=== PATIENT | male | born 1965 | race Caucasian/White ===

== ENCOUNTER → 2017-07-12 | Outpatient (CLI) | payer OTHER ==
--- NOTE | 2017-07-12 14:53 | MR ---
EXAMINATION TYPE: MR eduardoine/lspine wo con DATE OF EXAM: 07/12/2017 COMPARISON: MRI lumbar spine July 17, 2014. CT cervical spine May 04, 2013. HISTORY: Low back pain / Cervicalgia per order. Headaches with neck pain for 5 years causing pain or weakness into both arms per patient. Low back pain for 20+ years causing pain into right buttocks. TECHNIQUE: Multiplanar, multisequence imaging of the cervical and lumbar spine are performed without IV contrast. FINDINGS: C-SPINE: FINDINGS: Sagittal images of the cervical spine show the craniocervical junction to appear within nor mal limits. The cervical and upper thoracic spinal cord is normal in caliber and signal. Vertebral alignment is straightened. There is slight grade 1 retrolisthesis of C5 on C6. There is mild to mode rate disc space narrowing C5-C6 level otherwise the vertebral body and intravertebral disk heights ar e normal. Posterior disc herniations are seen effacing anterior thecal sac at C5-C6 and C6-C7 levels. The bone marrow signal intensity is within normal limits. No significant spurring is seen. Axial images at C2-C3 level shows left-sided uncovertebral facet degenerative changes causing mild to moderate left-sided neural foraminal narrowing. Right-sided neural foramen is patent. Spinal canal i s preserved. Axial images at C3-C4 level and C4-C5 level are felt within normal limits. Axial images at C5-C6 level show lobulated broad-based posterior disc protrusion effacing anterior th ecal sac and causing moderate to severe right and moderate left-sided neural foraminal narrowing. Axial images at C6-C7 level show broad-based left paracentral disc protrusion effacing anterolateral thecal sac and causing moderate left-sided neural foraminal narrowing. Right-sided neural foramen is patent. Axial images at C7-T1 level are felt within normal limits.. IMPRESSION: Straightening of cervical spine with multilevel degenerative changes most prominent at C5 -C6 and C6-C7 levels as detailed above. L-SPINE: Sagittal images of the lumbar spine show vertebral body heights to remain satisfactory. Alignment is straightened and is stable. There is slight grade 1 retrolisthesis of L5 on S1 redemonstrated. There is increasing multilevel disc desiccation since prior. There is persistent mild to moderate disc spac e narrowing L1-L2 and L4-L5 levels. There is moderate to severe disc space narrowing with vacuum disc phenomenon L5-S1 level redemonstrated. Posterior disc herniations are seen at these levels on sagitt al images from prior. The conus medullaris is normal in position and signal ending at mid L1 level. T here is heterogeneous endplate changes with moderate anterior spurring at L5-S1 level redemonstrated. Axial images show the T12-L1 level to appear within normal limits. Axial images at the L1-L2 level show broad disc bulge with left paracentral disc protrusion component effacing anterior thecal sac, bilateral neural foramina are patent. No significant change from prior study is seen. Axial images at L2-L3 level show mild broad disc bulge but spinal canal is preserved and bilateral ne ural foramina are patent. Axial images at L3-L4 level show mild broad disc bulge and mild facet degenerative changes bilaterall y. There is mild effacement anterior thecal sac. Left-sided neural foramen is mildly narrow. Right-si ded neural foramen is patent. No significant change from prior study is seen. Axial images at L4-L5 level show broad-based right paracentral disc protrusion effacing anterior thec al sac on axial image a similar appearance to prior study. There is mild bilateral neural foraminal n arrowing at this level identified. There are mild facet degenerative changes seen. No significant maria elena nge from prior study is noted. Axial images at L5-S1 level show severe broad disc bulge with central disc protrusion component on ax ial image 3. Spinal canal is grossly preserved. There is advanced bilateral neural foraminal narrowin g with encroachment on both L5 nerve seen on sagittal image 2 and 11 respectively, left worse than ri ght, no significant change from prior study. No suspicious retroperitoneal findings are seen. Prominent somewhat lobulated right kidney is redemon strated. IMPRESSION: Multilevel degenerative changes in lumbar spine as detailed above, attention to L5-S1 lev el where disc herniation causes advanced bilateral neural foraminal narrowing and suspected encroachm ent on both L5 nerves.
== END | disposition home or self-care (01) ==
LOC: RADMRIMAIN 10:56
PROVIDERS: ATTEND Psychiatry & Neurology Neurology
DX: M99.73 Connective tissue and disc stenosis of intervertebral foramina of lumbar region (principal); M51.27 Other intervertebral disc displacement, lumbosacral region; M47.812 Spondylosis without myelopathy or radiculopathy, cervical region; M47.816 Spondylosis without myelopathy or radiculopathy, lumbar region
CPT/HCPCS: 72141; 72148

== ENCOUNTER 2018-12-21 10:08 | Emergency (ER) | payer OTHER ==
[2018-12-21 10:26] VITALS: BP 127/85; PULSE 85; RESP 18; TEMP 99
[2018-12-21] MEDS ORDERED: KETOROLAC 60 MG/2 ML VIAL IM STA (11:09)
[2018-12-21] MEDS ORDERED: DIAZEPAM 5 MG TAB PO STA (11:09)
--- NOTE | 2018-12-21 11:15 | ED ---
Back Pain HPI - General Chief Complaint: Back Pain/Injury Stated Complaint: back pain Time Seen by Provider: 12/21/18 10:59 Source: patient Limitations: no limitations - History of Present Illness Initial Comments: Patient is a 53-year-old male presenting to emergency Department with past medical history COPD, GERD, hyperlipidemia, hypertension with complaints of low back pain. Patient states this is chronic in nature. He was here 2 weeks ago for same thing. X-rays were taken at that time because he had a fall 2 weeks prior. X-rays show no acute fractures. Patient states he is back today because the pain is getting worse again. Patient state they did not call Dr. Brito as they were supposed to. Patient states the pain has been radiating down the back of his legs. Denies any difficulty walking or weakness in his lower extremities. Patient denies saddle anesthesia, fever, chills, changes in bowel or bladder habits, shortness of breath, chest pain, abdominal pain. Patient has no other complaints at this time. - Related Data Home Medications Medication Instructions Recorded Confirmed Albuterol Sulfate [Ventolin HFA] 2 puff INHALATION RT-Q4H PRN 02/26/15 12/21/18 Fenofibrate 160 mg PO DAILY 02/26/15 12/21/18 Hydrochlorothiazide 25 mg PO DAILY 02/26/15 12/21/18 Ibuprofen [Motrin] 800 mg PO TID 02/26/15 12/21/18 Losartan Potassium 100 mg PO DAILY 02/26/15 12/21/18 busPIRone HCL [Buspirone HCl] 20 mg PO BID 02/26/15 12/21/18 Aspirin EC [Ecotrin Low Dose] 81 mg PO DAILY 12/21/18 12/21/18 Atorvastatin [Lipitor] 40 mg PO DAILY 12/21/18 12/21/18 Carisoprodol [Soma] 350 mg PO BID 12/21/18 12/21/18 Clotrimazole/Betameth Cream 1 applic TOPICAL BID 12/21/18 12/21/18 [Lotrisone] Diazepam 10 mg PO BID 12/21/18 12/21/18 Gabapentin [Neurontin] 100 mg PO TID 12/21/18 12/21/18 Pregabalin [Lyrica] 100 mg PO BID 12/21/18 12/21/18 Ranitidine HCl [Zantac] 300 mg PO DAILY 12/21/18 12/21/18 metFORMIN HCL [Glucophage] 850 mg PO BID 12/21/18 12/21/18 Previous Rx's Medication Instructions Recorded predniSONE 50 mg PO DAILY #5 tab 12/21/18 Allergies Allergy/AdvReac Type Severity Reaction Status Date / Time No Known Allergies Allergy Verified 12/21/18 11:11 Review of Systems ROS Statement: Those systems with pertinent positive or pertinent negative responses have been documented in the HPI. ROS Other: All systems not noted in ROS Statement are negative. Past Medical History Past Medical History: COPD, GERD/Reflux, Hyperlipidemia, Hypertension, Sleep Apnea/CPAP/BIPAP Additional Past Medical History / Comment(s): varicose veins, History of Any Multi-Drug Resistant Organisms: MRSA Date of last positivie culture/infection: 2013 MDRO Source:: rt nipple Additional Past Surgical History / Comment(s): polyps removed from throat Past Anesthesia/Blood Transfusion Reactions: No Reported Reaction Past Psychological History: No Psychological Hx Reported Smoking Status: Current every day smoker Past Alcohol Use History: Rare Past Drug Use History: Marijuana - Past Family History Mother Family Medical History: Cancer General Exam - General Exam Comments Initial Comments: GENERAL: Well-appearing, well-nourished and in no acute distress. HEAD: Atraumatic, normocephalic. EYES: Pupils equal round and reactive to light, extraocular movements intact, sclera anicteric, conjunctiva are normal. ENT: Nares patent, oropharynx clear without exudates. Moist mucous membranes. NECK: Normal range of motion, supple without lymphadenopathy or JVD. LUNGS: Breath sounds clear to auscultation bilaterally and equal. No wheezes rales or rhonchi. HEART: Regular rate and rhythm without murmurs, rubs or gallops. ABDOMEN: Soft, nontender, normoactive bowel sounds. No guarding, no rebound. No masses appreciated. : Deferred EXTREMITIES: Normal range of motion, no pitting or edema. No clubbing or cyanosis. Sensation equal in bilateral lower extremities. NEUROLOGICAL: Cranial nerves II through XII grossly intact. Normal speech, normal gait. PSYCH: Normal mood, normal affect. SKIN: Warm, Dry, normal turgor, no rashes or lesions noted. Limitations: no limitations Back exam: Present: normal inspection, tenderness (Lumbar area, bilateral sciatic nerve, SI joints), paraspinal tenderness. Absent: full ROM (Pain with flexion and extension.), CVA tenderness (R), CVA tenderness (L), rash noted Course Vital Signs 12/21/18 10:23 Temperature 99 F Pulse Rate 85 Respiratory 18 Rate Blood Pressure 127/85 O2 Sat by Pulse 98 Oximetry Medical Decision Making - Medical Decision Making Patient is a 53-year-old male here for chronic low back pain. Patient states he is here 2 weeks ago for similar complaint. He had x-rays at that time which revealed no acute fractures dislocations. Patient denies any recent trauma or falls since that x-ray. Patient is tender in the lumbar area, bilateral SI joints and bilateral sciatic nerve tenderness. Patient was given a referral to Dr. Romo on his last ER visit states they've not contacted yet. Patient was g iven Toradol and Valium. Patient will be given another referral to Dr. Romo and urged to follow up as it is possible. Patient is in agreement with this plan and has no further complaints at this time. Return parameters were discussed. Disposition Clinical Impression: Lumbar radiculopathy, Mechanical back pain, Sciatica Disposition: HOME SELF-CARE Condition: Stable Instructions (If sedation given, give patient instructions): Acute Low Back Pain (ED) Additional Instructions: Please return to the Emergency Department if symptoms worsen or any other concerns. Prescriptions: predniSONE 50 mg PO DAILY #5 tab Is patient prescribed a controlled substance at d/c from ED?: No Referrals: Adam Penaloza MD [Primary Care Provider] - 1-2 days Ciara Brito DO [Doctor of Osteopathic Medicine] - 1-2 days
== END 2018-12-21 12:13 | disposition home or self-care (01) ==
LOC: EC 10:08
DX: M54.16 Radiculopathy, lumbar region (principal); M54.42 Lumbago with sciatica, left side; M54.41 Lumbago with sciatica, right side; J44.9 Chronic obstructive pulmonary disease, unspecified; K21.9 Gastro-esophageal reflux disease without esophagitis; E78.5 Hyperlipidemia, unspecified; I10 Essential (primary) hypertension; F17.200 Nicotine dependence, unspecified, uncomplicated; G47.30 Sleep apnea, unspecified; Z99.89 Dependence on other enabling machines and devices; Z86.14 Personal history of Methicillin resistant Staphylococcus aureus infection; Z79.1 Long term (current) use of non-steroidal anti-inflammatories (NSAID); Z79.82 Long term (current) use of aspirin; Z79.84 Long term (current) use of oral hypoglycemic drugs; Z79.899 Other long term (current) drug therapy
CPT/HCPCS: 99283; 96372; J1885

== ENCOUNTER → 2020-03-02 | Outpatient (CLI) | payer OTHER | END | disposition home or self-care (01) | LOC: LABWHC1 12:57 | PROVIDERS: ATTEND Surgery Plastic and Reconstructive Surgery | DX: Z01.810 Encounter for preprocedural cardiovascular examination (principal) | CPT/HCPCS: 36415; 93005 ==

== ENCOUNTER → 2020-05-30 | Day surgery (SDC) | payer OTHER ==
[~2020-05-30] MED LIST: ACETAMINOPHEN TAB 325 MG TAB ONE; ALPRAZolam 0.25 MG TAB PO PRN; ALPRAZolam 0.5 MG TAB PO PRN; ASPIRIN 325 MG TAB PO STA; HEPARIN SODIUM 1,000 UN/ML (10ML VL) IV ONE; IOPAMIDOL-370 125ML BTL INJ ONE; LIDOCAINE 1% INJ 10MG/ML (10 ML MDV) SQ ONE; LIDOCAINE 1% INJ 10MG/ML (20 ML MDV) ONE; MIDAZOLAM 2 MG/2 ML VIAL IV ONE; NITROGLYCERIN SL TABS 0.4 MG TAB SUBLINGUAL PRN; RX INFO: IV CONTRAST WAS GIVEN 1 EACH MISC MISCELLANE PRN; SODIUM CHLORIDE 0.9% 1,000 ML IV ONE; SODIUM CHLORIDE 0.9% 1,000 ML IV SCH; SODIUM CHLORIDE 0.9% 1,000 ML in EMPTY BAG 1 BAG IV ONE; VERAPAMIL 2.5 MG/ML 2 ML AMP ONE
[2020-05-30 11:32] LABS: Glucose,Whole Blood 120 mg/dL (75-99)
[2020-05-30 11:36] VITALS: RESP 16; TEMP 98.3
[2020-05-30 11:59] LABS: Basophils # (A) 0.1 k/uL (0-0.2); Basophils % (A) 1 %; Eosinophils # (A) 0.4 k/uL (0-0.7); Eosinophils % (A) 4 %; HCT 42.8 % (39.0-53.0); HGB 14.7 gm/dL (13.0-17.5); Lymphocytes # (A) 1.6 k/uL (1.0-4.8); Lymphocytes % (A) 18 %; MCHC 34.3 g/dL (31.0-37.0); MCV 84.8 fL (80.0-100.0); Mean Platelet Volume 10.2; Monocytes # (A) 0.5 k/uL (0-1.0); Monocytes % (A) 6 %; Neutrophils % (A) 69 %; Platelet Count 225 k/uL (150-450); RBC 5.05 m/uL (4.30-5.90); RDW 13.3 % (11.5-15.5); WBC 8.7 k/uL (3.8-10.6)
[2020-05-30 12:03] LABS: African American GFR (CKD) >90 (>60 ml/min/1.73 sqM); Anion Gap 6 mmol/L; Blood Urea Nitrogen 10 mg/dL (9-20); Calcium 9.9 mg/dL (8.4-10.2); Carbon Dioxide 28 mmol/L (22-30); Chloride 104 mmol/L (98-107); Glucose 132 mg/dL (74-99); Non-African American GFR(CKD) >90 (>60 ml/min/1.73 sqM); Sodium 138 mmol/L (137-145)
[2020-05-30 12:12] LABS: Potassium 4.4 mmol/L (3.5-5.1)
[2020-05-30] MEDS: VERAPAMIL SYRINGE (5 MG/10 ML) INTRAARTER ONE ×2 (12:42→12:51)
--- NOTE | 2020-05-30 16:32 | CC ---
CARDIAC CATHETERIZATION REPORT DATE OF SERVICE: 05/30/2020 PERFORMING PHYSICIAN: Parth Chiu MD. PROCEDURE PERFORMED: 1. Selective right and left coronary angiogram. 2. Left heart catheterization. INDICATION: This is a 54-year-old gentleman who was experiencing chest discomfort and underwent myocardial perfusion imaging stress test and that revealed inferior ischemia. Because of that, a heart catheterization was advised. APPROACH: Right radial artery. COMPLICATION: None. LEVEL OF SEDATION: Moderate with sedation length of 14 minutes. PROCEDURE DESCRIPTION: After obtaining an informed consent, the patient was brought to the cardiac medical lab specialist. The right radial artery was cannulated using micropuncture technique, the micropuncture wire passed easily, then I placed a 6-Serbian sheath at the right radial artery. I gave the patient 2 mg of verapamil IA and 6,000 units of heparin IV. Selective right and left coronary angiogram performed using JR4 and JL3.5 catheters. Left heart catheterization was performed using 5-Serbian pigtail catheter. The procedure was completed without any complication. SELECTIVE CORONARY ANGIOGRAM: 1. The RCA is a large caliber vessel it is a dominant vessel. The RCA has mild disease in the midportion only. Distally bifurcates into PDA and PLV branches, both appeared to be angiographically normal. 2. The left main is angiographically normal, it bifurcates into LCX and LAD. 3. The LCX is a large caliber vessel, it is a nondominant vessel. The LCX is angiographically normal. It gives rise into an OM1 and OM2 and both appeared to be angiographically normal. 4. The LAD, the proximal LAD appeared to be angiographically normal. It gives rise into a large diagonal branch which seems to be angiographically normal. The mid and distal LAD appeared to be angiographically normal. HEMODYNAMICS: The LVEDP was 10 to 12 mmHg without significant gradient across the aortic valve. CONCLUSION: 1. Normal coronary angiogram. 2. Normal left ventricular end-diastolic pressure. POSTPROCEDURE MANAGEMENT: 1. Medical treatment. 2. Follow up with the patient. MMODL / IJN: [id number] /
[2020-05-30 17:27] VITALS: BP 149/81; PULSE 79
== END ==
LOC: CATHCVL 10:48
PROVIDERS: ATTEND Internal Medicine Interventional Cardiology
DX: R94.39 Abnormal result of other cardiovascular function study (principal); R07.89 Other chest pain; R94.31 Abnormal electrocardiogram [ECG] [EKG]; R06.02 Shortness of breath; I20.0 Unstable angina; I10 Essential (primary) hypertension; E78.5 Hyperlipidemia, unspecified; E11.9 Type 2 diabetes mellitus without complications; I08.1 Rheumatic disorders of both mitral and tricuspid valves; I73.9 Peripheral vascular disease, unspecified; F17.200 Nicotine dependence, unspecified, uncomplicated; Z79.899 Other long term (current) drug therapy; Z79.84 Long term (current) use of oral hypoglycemic drugs; Z79.1 Long term (current) use of non-steroidal anti-inflammatories (NSAID)
CPT/HCPCS: 93458; 80048; 85025; C1769; C1894; J2250; J1644; J2001; Q9967

== ENCOUNTER → 2020-07-11 | Day surgery (SDC) | payer OTHER ==
[2020-07-08 12:51] VITALS: BMI 31.5
[~2020-07-11] MED LIST changes: -ACETAMINOPHEN TAB 325 MG TAB ONE; +ACETAMINOPHEN TAB 500 MG TAB PO STA; -ALPRAZolam 0.25 MG TAB PO PRN; -ALPRAZolam 0.5 MG TAB PO PRN; -ASPIRIN 325 MG TAB PO STA; +DEXAMETHASONE SOD PHOSPHATE 4 MG/ML 1 ML VIAL IV ONE; +GABAPENTIN 300 MG CAP PO STA; +GLYCOPYRROLATE 0.2 MG/ML 2 ML VIAL ONE; -HEPARIN SODIUM 1,000 UN/ML (10ML VL) IV ONE; +HEPARIN SODIUM,PORCINE 5,000 UNIT/ML 1 ML VIAL SQ PRN; +HYDROmorphone 0.5 MG/0.5 ML SYRINGE IVP PRN; +INSULIN ASPART (NovoLOG) 100 UNIT/ML VIAL SQ ONE; -IOPAMIDOL-370 125ML BTL INJ ONE; +LACTATED RINGERS 1,000 ML IV ONE; +LACTATED RINGERS 1,000 ML IV SCH; -LIDOCAINE 1% INJ 10MG/ML (10 ML MDV) SQ ONE; +LIDOCAINE 1%-EPI 1:100,000 20 ML VIAL SQ ONE; +MELOXICAM 7.5 MG TAB PO ONE; -MIDAZOLAM 2 MG/2 ML VIAL IV ONE; +MIDAZOLAM 2 MG/2 ML VIAL IV PRN; +NEOSTIGMINE 1 MG/ML 10 ML VIAL ONE; -NITROGLYCERIN SL TABS 0.4 MG TAB SUBLINGUAL PRN; +ONDANSETRON 4 MG/2 ML VIAL IVP ONE; +PHENYLEPHRINE 10 MG/ML VIAL ONE; +PROPOFOL 10 MG/ML 20 ML VIAL IV ONE; +ROCURONIUM 10 MG/ML (10 ML VIAL) IV ONE; +ROPIVACAINE 5 MG/ML 30 ML VIAL ONE; -RX INFO: IV CONTRAST WAS GIVEN 1 EACH MISC MISCELLANE PRN; +SCOPOLAMINE 1.5MG/72HR PATCH TRANSDERM ONE; -SODIUM CHLORIDE 0.9% 1,000 ML IV ONE; -SODIUM CHLORIDE 0.9% 1,000 ML IV SCH; -SODIUM CHLORIDE 0.9% 1,000 ML in EMPTY BAG 1 BAG IV ONE; +SUCCINYLCHOLINE CHLORIDE 100 MG/5 ML SYR IV ONE; +TAMSULOSIN 0.4 MG CAP.ER.24H PO ONE; -VERAPAMIL 2.5 MG/ML 2 ML AMP ONE; +fentaNYL (PF) 50 MCG/ML 2 ML AMP ONE
--- NOTE | 2020-07-11 05:30 | P.GSHP ---
History of Present Illness H&P Date: 07/11/20 CHIEF COMPLAINT: Inguinal hernia, bilateral HISTORY OF PRESENT ILLNESS: The patient is a 54-year-old male who presents with a history of swelling and pain along the groins. He's noted increased swelling including pain of the area. Now he presents for repair of his inguinal hernia. PAST MEDICAL HISTORY: Please see list. PAST SURGICAL HISTORY: Please see list. MEDICATIONS: Please see list. ALLERGIES: Please see list. SOCIAL HISTORY:Please see list. FAMILY HISTORY: Please see list. REVIEW OF ORGAN SYSTEMS: CONSTITUTIONAL: No reports of fevers or chills. No reports of weight loss despite prior attempts. GI: Denies any blood in stools or constipation. PHYSICAL EXAM: VITAL SIGNS: Stable GENERAL: Well-developed pleasant male in no acute distress. HEENT: No scleral icterus. Extraocular movements grossly intact. Moist buccal mucosa. NECK: Supple without lymphadenopathy. CHEST: Unlabored respirations. Equal bilateral excursions. CARDIOVASCULAR: Regular rate and rhythm. Distal 2+ pulses. ABDOMEN: Soft, nondistended. No peritoneal signs. Palpable defect of the groin MUSCULOSKELETAL: No clubbing, cyanosis, or edema. ASSESSMENT: 1. Inguinal hernia, bilateral PLAN: 1. Recommend proceeding with a robotic inguinal repair with mesh with bilateral approach. 2. Benefits and risks of surgical intervention was discussed including possibility of open technique. 3. DVT prophylaxis. 4. Antibiotic prophylaxis. Past Medical History Past Medical History: COPD, Diabetes Mellitus, GERD/Reflux, Hearing Disorder / Deafness, Hyperlipidemia, Hypertension Additional Past Medical History / Comment(s): Varicose veins, Back and shoulder pain/problems, Bilat inguinal hernia currently History of Any Multi-Drug Resistant Organisms: MRSA Date of last positivie culture/infection: 2013 MDRO Source:: rt nipple Past Surgical History: Heart Catheterization, Hernia Repair Additional Past Surgical History / Comment(s): polyps removed from throat. Heart cath 05/30/20 - nl Past Anesthesia/Blood Transfusion Reactions: No Reported Reaction Additional Past Anesthesia/Blood Transfusion Reaction / Comment(s): Told "he had trouble breathing" when throat polyps removed Smoking Status: Current every day smoker - Past Family History Mother Family Medical History: Cancer Medications and Allergies Home Medications Medication Instructions Recorded Confirmed Type Albuterol Sulfate [Ventolin HFA] 2 puff INHALATION RT-Q4H PRN 02/26/15 07/08/20 History Fenofibrate 160 mg PO DAILY 02/26/15 07/08/20 History Hydrochlorothiazide 25 mg PO DAILY 02/26/15 07/08/20 History Ibuprofen [Motrin] 800 mg PO TID 02/26/15 07/08/20 History Losartan Potassium 100 mg PO DAILY 02/26/15 07/08/20 History busPIRone HCL [Buspirone HCl] 20 mg PO BID 02/26/15 07/08/20 History Aspirin EC [Ecotrin Low Dose] 81 mg PO DAILY 12/21/18 07/08/20 History Atorvastatin [Lipitor] 40 mg PO DAILY 12/21/18 07/08/20 History Clotrimazole/Betameth Cream 1 applic TOPICAL BID 12/21/18 07/08/20 History [Lotrisone] Pregabalin [Lyrica] 100 mg PO BID 12/21/18 07/08/20 History carisoprodoL [Soma] 350 mg PO BID 12/21/18 07/08/20 History diazePAM [Diazepam] 10 mg PO BID 12/21/18 07/08/20 History Omeprazole [PriLOSEC] 20 mg PO DAILY 05/30/20 07/08/20 History Vit E Acet/Wheat Germ/Aloe V 60 gm TP DAILY PRN 07/08/20 07/08/20 History [Vitamin E Ointment] Vitamin E (Unknown Dose) 1 tab PO DAILY 07/08/20 History metFORMIN HCL [Glucophage] 850 mg PO BID 07/08/20 07/08/20 History Allergies Allergy/AdvReac Type Severity Reaction Status Date / Time No Known Allergies Allergy Verified 07/08/20 12:25
[2020-07-11 09:08] LABS: Glucose,Whole Blood 137 mg/dL (75-99)
[2020-07-11 09:19] LABS: Basophils # (A) 0.1 k/uL (0-0.2); Basophils % (A) 1 %; Eosinophils # (A) 0.4 k/uL (0-0.7); Eosinophils % (A) 4 %; HCT 43.7 % (39.0-53.0); HGB 14.9 gm/dL (13.0-17.5); Lymphocytes # (A) 1.6 k/uL (1.0-4.8); Lymphocytes % (A) 18 %; MCH 28.9 pg (25.0-35.0); MCHC 34.1 g/dL (31.0-37.0); MCV 84.8 fL (80.0-100.0); Mean Platelet Volume 9.4; Monocytes # (A) 0.7 k/uL (0-1.0); Monocytes % (A) 8 %; Neutrophils # (A) 5.9 k/uL (1.3-7.7); Neutrophils % (A) 66 %; Platelet Count 213 k/uL (150-450); RBC 5.15 m/uL (4.30-5.90); RDW 13.9 % (11.5-15.5); WBC 8.9 k/uL (3.8-10.6)
--- NOTE | 2020-07-11 09:34 | P.ANPRN ---
Procedure Note - Anesthesia - Nerve Block Performed Bilateral Transversus Abdominis Single Time Out Performed: Yes Date of Procedure: 07/11/20 Procedure Start Time: : Procedure Stop Time: :10 Location of Patient: PreOp Indication: Acute Post-Operative Pain, Analgesia, Requested by Surgeon Sedation Type: Sedate with meaningful contact maintained Preparation: Sterile Prep Position: Supine Catheter: Indwelling Needle Gauge: 21 Ultrasound used to visualize needle placement: Yes Ultrasound used to observe medication spread: Yes Injectate: 0.5% Ropivacaine (see comment for volume) (30ML OF 0.25% each side) Blood Aspirated: No Pain Paresthesia on Injection Noted: No Resistance on Injection: Normal Image Stored and Saved: Yes Events: Uneventful and Well Tolerated
[2020-07-11 09:48] LABS: ALT 34 U/L (4-49); African American GFR (CKD) >90 (>60 ml/min/1.73 sqM); Albumin 4.7 g/dL (3.5-5.0); Alkaline Phosphatase 52 U/L (38-126); Carbon Dioxide 28 mmol/L (22-30); Glucose 135 mg/dL (74-99); Non-African American GFR(CKD) >90 (>60 ml/min/1.73 sqM); Total Protein 7.4 g/dL (6.3-8.2)
[2020-07-11 09:55] LABS: AST 41 U/L (17-59); Anion Gap 5 mmol/L; Blood Urea Nitrogen 17 mg/dL (9-20); Calcium 9.7 mg/dL (8.4-10.2); Chloride 103 mmol/L (98-107); Potassium 3.9 mmol/L (3.5-5.1); Sodium 136 mmol/L (137-145); Total Bilirubin 0.6 mg/dL (0.2-1.3)
[2020-07-11 12:10] VITALS: TEMP 97.8
[2020-07-11 13:04] LABS: Glucose,Whole Blood 227 mg/dL (75-99)
[2020-07-11 13:18] VITALS: RESP 16
[2020-07-11 13:55] LABS: Glucose,Whole Blood 210 mg/dL (75-99)
--- NOTE | 2020-07-11 13:59 | P.OP ---
Date of Procedure: 07/11/20 Preoperative Diagnosis: Bilateral inguinal hernia Description of Procedure: SURGEON: GEETA DOWD MD PREOPERATIVE DIAGNOSES: 1. Bilateral recurrent inguinal hernia POSTOPERATIVE DIAGNOSES: 1. Recurrent right inguinal hernia with pantaloon type, 2 cm 2. Initial incarcerated left obturator hernia, 3 cm 3. Lipoma left groin, obturator hernia OPERATION: 1. Robotic-assisted da Ronal Xi laparoscopic repair of recurrent right inguinal hernia with mesh, 11.[address] 2. Robotic-assisted da Ronal Xi laparoscopic repair of initial incarcerated left obturator hernia with mesh, 11.[address] 3. Resection of incarcerated right inguinal lipoma, 4 cm ANESTHESIA: General with local anesthetic ESTIMATED BLOOD LOSS: 5 mL. SPECIMENS: 1. Incarcerated left obturator hernia 2. Right inguinal hernia sac COMPLICATIONS: None. FINDINGS: 1. Recurrent right inguinal hernia with new pantaloon indirect inguinal hernia, 2 cm with sac resected 2. No recurrence at previous repair at left indirect inguinal hernia repair 3. New incarcerated left obturator hernia involving inguinal lipoma over 4 cm resected 4. New incarcerated left obturator hernia, 3 cm in size repaired INDICATIONS: The patient is a 54-year-old gentleman who presents with history of recurrent bilateral inguinal hernias. Now presents for definitive surgical intervention. Laparoscopic versus open and robotic approaches were discussed. Benefits and risks including bleeding, infection, injury to the vas deferens as well as sterility and chronic groin pain were reviewed. Placement of mesh was also described. Informed consent was obtained. DESCRIPTION: In the preoperative area, the patient was marked with indelible marker along the inguinal hernia. The patient was brought to the operating room and initially laid in supine position. The abdomen had been prepped and draped in standard sterile fashion. Ioban draping was also placed. Prior to incision, a timeout protocol was confirmed with surgical team regarding patient's name including procedures to be performed and location along the right groin. Initial positioning for the robotic assisted ports were selected whereby 20 cm superior to the target anatomy, 0 degree 5 mm laparoscopic trocar entry was performed at the left upper quadrant. The abdomen was insufflated to 15 mmHg which he had tolerated well. Diagnostic laparoscopy demonstrated no injury to bowel, viscera or mesentery. No peritoneal studding was identified for history of colon cancer. A defect along the left groin without an apparent defect along the right side was found. Along the sigmoid colon, moderate large size diverticula were identified. Next, along the epigastrium, 8 mm robot trocar was placed. An 8-mm robotic trocar was placed under direct visualization at the right upper quadrant. An 8 mm port was placed at the left upper quadrant. All trocars were positioned between 10-cm apart from each other. The Ikro XI robot was primed, draped, prepared for docking along upper abdomen of the patient. The patient was positioned 16 steep Trendelenburg position I then went to the Ikro Xi console. The financial legal assistant was at bedside for exchange of the robot arms and equipment. The left indirect inguinal hernia sac was evaginated whereby the peritoneum was scored using Endo scissors with cautery. Once completely reduced into the abdominal cavity, the peritoneal sac of the hernia was stripped. The sac was resected and then passed off for further pathological analysis. The size of the hernia defect was 3 cm with intraoperative films obtained. Using a 2-0 VLOC, the peritoneal defect of the left inguinal hernia sites was closed using a running suture separately. The defect was found to be completely closed with complete reduction of the left direct inguinal hernia were confir med. As an onlay, an 11.[address] mesh by Nimbit was initially cut in half and entered into the abdominal cavity via the 8 mm trocar. The mesh was tacked to the pelvis using 2-0 VLOC 12-inch length sutures. Next, careful attention along the right groin demonstrated a very small tract with after further inspection confirmed an actively incarcerated right inguinal hernia. Both an indirect and direct hernia was confirmed with a pantaloon type hernia. The right inguinal hernia sac was evaginated whereby the peritoneum was scored using Endo scissors with cautery. Once completely reduced into the abdominal cavity, the peritoneal sac of the hernia was stripped along a tightly incarcerated inguinal hernia involving a large 4-cm right inguinal lipoma. The lipoma and sac was resected and then passed off for further pathological analysis. The size of the hernia defect was 4 cm with intraoperative films obtained. Using a 2-0 VLOC, the peritoneal defect of the right inguinal hernia site was closed using a running suture. The defect was found to be completely closed with complete reduction of the right direct inguinal hernia was confirmed. As an onlay, an 11.[address] mesh by Nimbit was initially cut in half and entered into the abdominal cavity via the 8 mm trocar. The mesh was tacked to the pelvis using 2-0 VLOC 9-inch length sutures. The robot was undocked from the patient's bedside. I then rescrubbed into the case. Insufflation was released from the abdominal cavity and all instruments were removed from the abdominal cavity. The rest of incisions were reapproximated using 4-0 Monocryl in a running subcuticular fashion. Local anesthetic was placed along the incision including for a bilateral groin block. Incisions were cleansed using dilute hydrogen peroxide. Liquid glue was applied to the skin. At the end of the procedure, the needle, sponge and instrument counts had been verified correct by the certified ophthalmic surgical assistant. The patient had tolerated the procedure well and was taken to the postanesthesia care unit in stable condition. Plan - Discharge Summary Discharge Rx Participant: No New Discharge Prescriptions: New Acetaminophen Tab [Tylenol Tab] 1,000 mg PO Q6HR PRN #30 tablet PRN Reason: Pain Continue busPIRone HCL [Buspirone HCl] 20 mg PO BID Losartan Potassium 100 mg PO DAILY Ibuprofen [Motrin] 800 mg PO TID Hydrochlorothiazide 25 mg PO DAILY Fenofibrate 160 mg PO DAILY Albuterol Sulfate [Ventolin HFA] 2 puff INHALATION RT-Q4H PRN PRN Reason: Shortness Of Breath diazePAM [Diazepam] 10 mg PO BID Clotrimazole/Betameth Cream [Lotrisone] 1 applic TOPICAL BID carisoprodoL [Soma] 350 mg PO BID Atorvastatin [Lipitor] 40 mg PO DAILY Aspirin EC [Ecotrin Low Dose] 81 mg PO DAILY Pregabalin [Lyrica] 100 mg PO BID Omeprazole [PriLOSEC] 20 mg PO DAILY metFORMIN HCL [Glucophage] 850 mg PO BID Vit E Acet/Wheat Germ/Aloe V [Vitamin E Ointment] 60 gm TP DAILY PRN PRN Reason: frostbite fingers Vitamin E (Unknown Dose) 1 tab PO DAILY Discharge Medication List Albuterol Sulfate [Ventolin HFA] 2 puff INHALATION RT-Q4H PRN 02/26/15 [History] Fenofibrate 160 mg PO DAILY 02/26/15 [History] Hydrochlorothiazide 25 mg PO DAILY 02/26/15 [History] Ibuprofen [Motrin] 800 mg PO TID 02/26/15 [History] Losartan Potassium 100 mg PO DAILY 02/26/15 [History] busPIRone HCL [Buspirone HCl] 20 mg PO BID 02/26/15 [History] Aspirin EC [Ecotrin Low Dose] 81 mg PO DAILY 12/21/18 [History] Atorvastatin [Lipitor] 40 mg PO DAILY 12/21/18 [History] Clotrimazole/Betameth Cream [Lotrisone] 1 applic TOPICAL BID 12/21/18 [History] Pregabalin [Lyrica] 100 mg PO BID 12/21/18 [History] carisoprodoL [Soma] 350 mg PO BID 12/21/18 [History] diazePAM [Diazepam] 10 mg PO BID 12/21/18 [History] Omeprazole [PriLOSEC] 20 mg PO DAILY 05/30/20 [History] Vit E Acet/Wheat Germ/Aloe V [Vitamin E Ointment] 60 gm TP DAILY PRN 07/08/20 [History] Vitamin E (Unknown Dose) 1 tab PO DAILY 07/08/20 [History] metFORMIN HCL [Glucophage] 850 mg PO BID 07/08/20 [History] Acetaminophen Tab [Tylenol Tab] 1,000 mg PO Q6HR PRN #30 tablet 07/11/20 [Rx] Follow up Appointment(s)/Referral(s): Geeta Dowd MD [STAFF PHYSICIAN] - 07/19/20 2:15 pm Patient Instructions/Handouts: *Surgery [facility] - (Anesthesia) Discharge Instructions Outpatient Surgery, Open Herniorrhaphy (PRE), Inguinal Hernia Repair (DC) Activity/Diet/Wound Care/Special Instructions: CONTACT YOUR PRIMARY CARE PROVIDER FOR NARCOTICS Use Tylenol and ibuprofen or Aleve scheduled for the next 24-48 hours for best pain relief. Using antibacterial soap. No lifting over 4 pounds 4 weeks, Aug 11October shower. No bathtub soaks for 2 weeks, Jul 25 Use ice along incisions for the today to prevent swelling. Discharge Disposition: HOME SELF-CARE
[2020-07-11 14:01] VITALS: BP 136/75; PULSE 98
== END | disposition home or self-care (01) ==
LOC: OR 08:27
PROVIDERS: ATTEND Surgery Plastic and Reconstructive Surgery
DX: K40.91 Unilateral inguinal hernia, without obstruction or gangrene, recurrent (principal); K45.0 Other specified abdominal hernia with obstruction, without gangrene; D17.79 Benign lipomatous neoplasm of other sites; K57.30 Diverticulosis of large intestine without perforation or abscess without bleeding; I10 Essential (primary) hypertension; E78.5 Hyperlipidemia, unspecified; J44.9 Chronic obstructive pulmonary disease, unspecified; E11.9 Type 2 diabetes mellitus without complications; F32.9 Major depressive disorder, single episode, unspecified; H91.90 Unspecified hearing loss, unspecified ear; K21.9 Gastro-esophageal reflux disease without esophagitis; I83.90 Asymptomatic varicose veins of unspecified lower extremity; F17.200 Nicotine dependence, unspecified, uncomplicated; Z86.14 Personal history of Methicillin resistant Staphylococcus aureus infection; Z79.84 Long term (current) use of oral hypoglycemic drugs; Z79.82 Long term (current) use of aspirin; Z79.1 Long term (current) use of non-steroidal anti-inflammatories (NSAID); Z79.899 Other long term (current) drug therapy; Z80.9 Family history of malignant neoplasm, unspecified
CPT/HCPCS: 64488; 80053; 85025; 49651; 49659; C1781; J2250; J1100; J2370; J2710; J0690; J2405; J2001; J3010; J2795; J0330; J2704; J1170; 88302

== ENCOUNTER 2020-08-06 12:58 | Emergency (ER) | payer OTHER ==
[2020-08-06 13:08] VITALS: BP 162/99; PULSE 105; RESP 18; TEMP 98
[2020-08-06] MEDS ORDERED: SODIUM CHLORIDE 0.9% 1,000 ML IV STA (13:19)
[2020-08-06] MEDS ORDERED: KETOROLAC 15 MG/ML 1 ML VIAL IVP STA (13:19)
--- NOTE | 2020-08-06 13:29 | ED ---
Abdominal Pain HPI - General Chief Complaint: Abdominal Pain Stated Complaint: post op hernia/fall & abd pain Time Seen by Provider: 08/06/20 13:00 Source: patient Mode of arrival: ambulatory - History of Present Illness Initial Comments: Patient is a 54-year-old male, with history of COPD, diabetes, hypertension, presenting to the emergency Department with complaints of abdominal pain 3 days. Patient states he had bilateral inguinal hernia repair on 07/11/[address] Dowd. Patient states he has been recovering well from this until about 3 days ago. Patient states he's had to slip and fall on ice in the past week, his most recent one was 3 days ago and since then he has been having abdominal pain. He describes the pain as mostly in his lower abdomen, both sides but also some pain around his belly button as well. He states the pain currently is a 7/10. He states he was having an issue with constipation a few days ago but then did have a fairly large bowel movement, multiple times that day. He states he feels like he is more regular now. He denies any diarrhea, no vomiting. He denies any other abdominal surgeries other than the hernia repairs, he has had previous hernia repairs in the past. He denies any fever or chills, no chest pain or shortness of breath. He states both times he fell he slipped on ice, and landed mostly on his back or his back. He has no further complaints at this time. Upon arrival to the ER, he is afebrile, vitals are stable. - Related Data Home Medications Medication Instructions Recorded Confirmed Albuterol Sulfate [Ventolin HFA] 2 puff INHALATION RT-Q4H PRN 02/26/15 07/11/20 Fenofibrate 160 mg PO DAILY 02/26/15 07/11/20 Hydrochlorothiazide 25 mg PO DAILY 02/26/15 07/11/20 Ibuprofen [Motrin] 800 mg PO TID 02/26/15 07/11/20 Losartan Potassium 100 mg PO DAILY 02/26/15 07/11/20 busPIRone HCL [Buspirone HCl] 20 mg PO BID 02/26/15 07/11/20 Aspirin EC [Ecotrin Low Dose] 81 mg PO DAILY 12/21/18 07/11/20 Atorvastatin [Lipitor] 40 mg PO DAILY 12/21/18 07/11/20 Clotrimazole/Betameth Cream 1 applic TOPICAL BID 12/21/18 07/11/20 [Lotrisone] carisoprodoL [Soma] 350 mg PO BID 12/21/18 07/11/20 diazePAM [Diazepam] 10 mg PO BID 12/21/18 07/11/20 Omeprazole [PriLOSEC] 20 mg PO DAILY 05/30/20 07/11/20 metFORMIN HCL [Glucophage] 850 mg PO BID 07/08/20 07/11/20 Pregabalin 200 mg PO BID 08/06/20 08/06/20 Previous Rx's Medication Instructions Recorded Amoxicillin/Potassium Clav 1 tab PO BID #14 tab 08/06/20 [Augmentin 875-125 Tablet] Allergies Allergy/AdvReac Type Severity Reaction Status Date / Time No Known Allergies Allergy Verified 08/06/20 13:08 Review of Systems ROS Statement: Those systems with pertinent positive or pertinent negative responses have been documented in the HPI. ROS Other: All systems not noted in ROS Statement are negative. Past Medical History Past Medical History: COPD, Diabetes Mellitus, GERD/Reflux, Hearing Disorder / Deafness, Hyperlipidemia, Hypertension Additional Past Medical History / Comment(s): Varicose veins, Back and shoulder pain/problems, Bilat inguinal hernia currently History of Any Multi-Drug Resistant Organisms: MRSA Date of last positivie culture/infection: 2013 MDRO Source:: rt nipple Past Surgical History: Heart Catheterization, Hernia Repair Additional Past Surgical History / Comment(s): polyps removed from throat. Heart cath 05/30/20 - Past Anesthesia/Blood Transfusion Reactions: No Reported Reaction Additional Past Anesthesia/Blood Transfusion Reaction / Comment(s): Told "he had trouble breathing" when throat polyps removed Past Psychological History: Anxiety Smoking Status: Current every day smoker Past Alcohol Use History: None Reported Past Drug Use History: Marijuana - Past Family History Mother Family Medical History: Cancer General Exam - General Exam Comments Initial Comments: GENERAL: Patient is well-developed and well-nourished. Patient is nontoxic and in mild distress. HEAD: Atraumatic, normocephalic. EYES: Pupils equal round and reactive to light, extraocular movements intact, sclera anicteric, conjunctiva are normal. Eyelids were unremarkable. ENT: TMs normal, nares patent, oropharynx clear without exudates. Moist mucous membranes. NECK: Normal range of motion, supple without lymphadenopathy or JVD. LUNGS: Unlabored respirations. Breath sounds clear to auscultation bilaterally and equal. No wheezes rales or rhonchi. HEART: Regular rate and rhythm without murmurs, rubs or gallops. ABDOMEN: Patient appears to be guarding his abdomen, feels hard iwth the guarding, but soft at times as well, tenderness along the entire lower abdomen, mid abdominal region as well. Normoactive bowel sounds. No masses appreciated. : Deferred MUSCULOSKELETAL: Normal extremities with adequate strength and normal range of motion, no pitting or edema. No clubbing or cyanosis. NEUROLOGICAL: Patient is alert and oriented x 3. Motor and sensory are also intact. Cranial nerves II through XII grossly intact. Symmetrical smile. Normal speech, normal gait. PSYCH: Normal mood, normal affect. SKIN: Warm, Dry, normal turgor, no rashes or lesions noted. Course Vital Signs 08/06/20 13:04 Temperature 98 F Pulse Rate 105 H Respiratory 18 Rate Blood Pressure 162/99 O2 Sat by Pulse 98 Oximetry Medical Decision Making - Medical Decision Making Patient is a 54-year-old male with history of COPD, hypertension, presenting with abdominal pain 3 days. He had bilateral inguinal repair by Dr. Dowd on 07/11/2020. He has been recovering well until he had a couple slip and falls on ice, and he mostly on his behind. His most recent fall was 3 days ago, that this pain started. His abdomen and a by mouth this hard, he has guarding a lot, pain is mostly all lower abdomen, some mid abdominal region. His vitals are stable he's been afebrile, no vomiting or diarrhea. He has been passing gas. L abs do show a mild white count 14.9, reticulocyte acid is normal at 1.1, glucose is elevated to 15. CT the abdomen shows a bilateral lower abdominal low density complex fluid collections that could relate to an abscess. Small amount of free fluid in the pelvis as well. Sigmoid diverticulosis without definite sign of diverticulitis. Patient was given some fluids and Toradol, he reports improvem ent in his pain. Patient has been resting currently. I did discuss case with covering surgeon, Dr. Real who was okay with patient being discharged and antibiotics and will follow-up with Dr. Torres on Saturday morning. Will start patient on Augmentin. I recommended alternating between Tylenol and Motrin for any discomfort. Return parameters were discussed with the patient and he verbalized understanding. Case discussed Dr. Baez. - Lab Data Result diagrams: 08/06/20 13:35 08/06/20 13:35 Lab Results 08/06/20 08/06/20 08/06/20 Range/Units 13:35 13:35 13:35 WBC 14.9 H (3.8-10.6) k/uL RBC 5.11 (4.30-5.90) m/uL Hgb 14.7 (13.0-17.5) gm/dL Hct 43.5 (39.0-53.0) % MCV 85.3 (80.0-100.0) fL MCH 28.8 (25.0-35.0) pg MCHC 33.8 (31.0-37.0) g/dL RDW 13.5 (11.5-15.5) % Plt Count 289 (150-450) k/uL MPV 9.1 Neutrophils % 81 % Lymphocytes % 7 % Monocytes % 7 % Eosinophils % 3 % Basophils % 0 % Neutrophils # 12.0 H (1.3-7.7) k/uL Lymphocytes # 1.1 (1.0-4.8) k/uL Monocytes # 1.1 H (0-1.0) k/uL Eosinophils # 0.5 (0-0.7) k/uL Basophils # 0.1 (0-0.2) k/uL PT 9.3 (9.0-12.0) sec INR 0.8 (<1.2) APTT 24.1 (22.0-30.0) sec Sodium 136 L (137-145) mmol/L Potassium 4.0 (3.5-5.1) mmol/L Chloride 97 L (98-107) mmol/L Carbon Dioxide 29 (22-30) mmol/L Anion Gap 10 mmol/L BUN 13 (9-20) mg/dL Creatinine 0.87 (0.66-1.25) mg/dL Est GFR (CKD-EPI)AfAm >90 (>60 ml/min/1.73 sqM) Est GFR (CKD-EPI)NonAf >90 (>60 ml/min/1.73 sqM) Glucose 215 H (74-99) mg/dL Plasma Lactic Acid Isai (0.7-2.0) mmol/L Calcium 9.6 (8.4-10.2) mg/dL Total Bilirubin 0.5 (0.2-1.3) mg/dL AST 23 (17-59) U/L ALT 28 (4-49) U/L Alkaline Phosphatase 126 (38-126) U/L Total Protein 6.9 (6.3-8.2) g/dL Albumin 3.8 (3.5-5.0) g/dL Amylase 32 (30-110) U/L Lipase 31 (23-300) U/L Urine Color Urine Appearance (Clear) Urine pH (5.0-8.0) Ur Specific [place] (1.001-1.035) Urine Protein (Negative) Urine Glucose (UA) (Negative) Urine Ketones (Negative) Urine Blood (Negative) Urine Nitrite (Negative) Urine Bilirubin (Negative) Urine Urobilinogen (<2.0) mg/dL Ur Leukocyte Esterase (Negative) 08/06/20 08/06/20 Range/Units 13:35 13:45 WBC (3.8-10.6) k/uL RBC (4.30-5.90) m/uL Hgb (13.0-17.5) gm/dL Hct (39.0-53.0) % MCV (80.0-100.0) fL MCH (25.0-35.0) pg MCHC (31.0-37.0) g/dL RDW (11.5-15.5) % Plt Count (150-450) k/uL MPV Neutrophils % % Lymphocytes % % Monocytes % % Eosinophils % % Basophils % % Neutrophils # (1.3-7.7) k/uL Lymphocytes # (1.0-4.8) k/uL Monocytes # (0-1.0) k/uL Eosinophils # (0-0.7) k/uL Basophils # (0-0.2) k/uL PT (9.0-12.0) sec INR (<1.2) APTT (22.0-30.0) sec Sodium (137-145) mmol/L Potassium (3.5-5.1) mmol/L Chloride (98-107) mmol/L Carbon Dioxide (22-30) mmol/L Anion Gap mmol/L BUN (9-20) mg/dL Creatinine (0.66-1.25) mg/dL Est GFR (CKD-EPI)AfAm (>60 ml/min/1.73 sqM) Est GFR (CKD-EPI)NonAf (>60 ml/min/1.73 sqM) Glucose (74-99) mg/dL Plasma Lactic Acid Isai 1.1 (0.7-2.0) mmol/L Calcium (8.4-10.2) mg/dL Total Bilirubin (0.2-1.3) mg/dL AST (17-59) U/L ALT (4-49) U/L Alkaline Phosphatase (38-126) U/L Total Protein (6.3-8.2) g/dL Albumin (3.5-5.0) g/dL Amylase (30-110) U/L Lipase (23-300) U/L Urine Color Yellow Urine Appearance Clear (Clear) Urine pH 6.0 (5.0-8.0) Ur Specific [place] 1.025 (1.001-1.035) Urine Protein Trace H (Negative) Urine Glucose (UA) 4+ H (Negative) Urine Ketones Negative (Negative) Urine Blood Negative (Negative) Urine Nitrite Negative (Negative) Urine Bilirubin Negative (Negative) Urine Urobilinogen 2.0 (<2.0) mg/dL Ur Leukocyte Esterase Negative (Negative) Disposition Clinical Impression: Hx of inguinal hernia repair, Abdominal pain Disposition: HOME SELF-CARE Condition: Stable Instructions (If sedation given, give patient instructions): Abdominal Pain (ED) Additional Instructions: Please return to the Emergency Department if symptoms worsen or any other concerns. Take antibiotic as prescribed. Alternate between Tylenol and Motrin for pain control. Follow-up with your surgeon as discussed in 1-3 days. Prescriptions: Amoxicillin/Potassium Clav [Augmentin 875-125 Tablet] 1 tab PO BID #14 tab Is patient prescribed a controlled substance at d/c from ED?: No Referrals: Adam Penaloza MD [Primary Care Provider] - 1-2 days Geeta Dowd MD [Family Provider] - 1-2 days
[2020-08-06 13:59] LABS: ALT 28 U/L (4-49); AST 23 U/L (17-59); African American GFR (CKD) >90 (>60 ml/min/1.73 sqM); Albumin 3.8 g/dL (3.5-5.0); Alkaline Phosphatase 126 U/L (38-126); Amylase 32 U/L (30-110); Anion Gap 10 mmol/L; Basophils # (A) 0.1 k/uL (0-0.2); Basophils % (A) 0 %; Blood Urea Nitrogen 13 mg/dL (9-20); Calcium 9.6 mg/dL (8.4-10.2); Carbon Dioxide 29 mmol/L (22-30); Chloride 97 mmol/L (98-107); Eosinophils # (A) 0.5 k/uL (0-0.7); Eosinophils % (A) 3 %; Glucose 215 mg/dL (74-99); HCT 43.5 % (39.0-53.0); HGB 14.7 gm/dL (13.0-17.5); Lipase 31 U/L (23-300); Lymphocytes # (A) 1.1 k/uL (1.0-4.8); Lymphocytes % (A) 7 %; MCH 28.8 pg (25.0-35.0); MCHC 33.8 g/dL (31.0-37.0); MCV 85.3 fL (80.0-100.0); Mean Platelet Volume 9.1; Monocytes # (A) 1.1 k/uL (0-1.0); Monocytes % (A) 7 %; Neutrophils % (A) 81 %; Non-African American GFR(CKD) >90 (>60 ml/min/1.73 sqM); Platelet Count 289 k/uL (150-450); RBC 5.11 m/uL (4.30-5.90); RDW 13.5 % (11.5-15.5); Sodium 136 mmol/L (137-145); Total Bilirubin 0.5 mg/dL (0.2-1.3); Total Protein 6.9 g/dL (6.3-8.2); WBC 14.9 k/uL (3.8-10.6)
[2020-08-06 14:03] LABS: Appearance,Urine Clear (Clear); Bilirubin,Urine Negative (Negative); Blood,Urine Negative (Negative); Color,Urine Yellow; Glucose,Urine (UA) 4+ (Negative); Ketones,Urine Negative (Negative); Leukocyte Esterase,Urine Negative (Negative); Nitrite,Urine Negative (Negative); Protein,Urine Trace (Negative); Specific Gravity,Urine 1.025 (1.001-1.035)
[2020-08-06 14:16] LABS: INR 0.8 (<1.2); Partial Thromboplastin Time 24.1 sec (22.0-30.0); Prothrombin Time 9.3 sec (9.0-12.0)
--- NOTE | 2020-08-06 14:53 | CT ---
EXAMINATION TYPE: CT abdomen pelvis w con DATE OF EXAM: 08/06/2020 COMPARISON: 05/04/2013 HISTORY: Post op hernia pain after fall injury CT DLP: 1676.3 mGycm Automated exposure control for dose reduction was used. CONTRAST: Performed with IV Contrast, patient injected with 100 mL of Isovue 300. Lung bases are clear. There is no pleural effusion. Heart size is normal. There is no pericardial eff usion. Liver spleen stomach pancreas gallbladder appear intact. Bile ducts are not dilated. Left kidney is absent. There is compensatory hypertrophy of the right kidney. There is normal contras t opacification of the right kidney. There is no hydronephrosis. There is no retroperitoneal adenopat hy. Bladder distends smoothly. There are bilateral lower anterior abdominal fluid collections with air bubbles. These measure 7 x 4. 5 cm on the left side and 7 x 4 cm on the right side. There are sigmoid diverticula. There is small a mount of free fluid in the pelvis. There is no mesenteric edema. I see no free air anteriorly in the peritoneal cavity. There are small bilateral inguinal hernias that contain fat. The lumbar vertebra have normal alignment. There is disc space narrowing and spur formation. There is no compression fracture. The posterior elements are intact. Bony pelvis is intact. IMPRESSION: Bilateral lower abdominal low-density complex fluid collections that could relate to abscess is. Smal l amount of free fluid in the pelvis. No bowel obstruction. Sigmoid diverticulosis without definite s ign of diverticulitis.
[2020-08-06] MEDS ORDERED: AMOXIC-POT CLAV 875MG STARTER PACK 2 TAB BTL PO STA (15:24)
== END 2020-08-06 15:32 | disposition home or self-care (01) ==
LOC: EC 12:58
DX: K57.10 Diverticulosis of small intestine without perforation or abscess without bleeding (principal); J44.9 Chronic obstructive pulmonary disease, unspecified; F41.9 Anxiety disorder, unspecified; E11.9 Type 2 diabetes mellitus without complications; K21.9 Gastro-esophageal reflux disease without esophagitis; E78.5 Hyperlipidemia, unspecified; I10 Essential (primary) hypertension; F17.200 Nicotine dependence, unspecified, uncomplicated; Z79.82 Long term (current) use of aspirin; Z79.899 Other long term (current) drug therapy; Z79.84 Long term (current) use of oral hypoglycemic drugs; Z95.5 Presence of coronary angioplasty implant and graft; Z98.890 Other specified postprocedural states; Z86.14 Personal history of Methicillin resistant Staphylococcus aureus infection; W00.0XXA Fall on same level due to ice and snow, initial encounter
CPT/HCPCS: 36415; 74177; 80053; 81003; 82150; 83605; 83690; 85025; 85610; 85730; 96361; 96374; 99284

== ENCOUNTER → 2021-11-10 | Outpatient (CLI) | payer OTHER ==
--- NOTE | 2021-11-10 14:26 | XR ---
There are digit right hand HISTORY: Cellulitis 2 views of the second digit right hand The distal phalanx of the third digit shows bone loss, fragmentation. Soft tissue swelling is also pr esent. Soft tissue swelling present at the intercarpal phalangeal joint of the third digit with prem nal spurring and joint space loss, hypertrophic change. IMPRESSION: Findings suggest osteomyelitis of the distal phalanx of the third digit right hand.
== END | disposition home or self-care (01) ==
LOC: RADXRYALE 13:58
PROVIDERS: ATTEND Family Medicine
DX: L03.011 Cellulitis of right finger (principal)

== ENCOUNTER 2023-08-30 13:20 | Inpatient (IN) | payer OTHER ==
--- NOTE | 2023-08-30 13:52 | ED ---
Extremity Problem HPI - General Source: patient, RN notes reviewed Mode of arrival: ambulatory Limitations: no limitations <Marcy Hutson - Last Filed: 08/30/23 15:52> <Kai Villarreal - Last Filed: 08/31/23 20:51> - General Chief complaint: Extremity Problem,Nontraumatic Stated complaint: R Pointer Finger Injury Time Seen by Provider: 08/30/23 13:35 - History of Present Illness Initial comments: 57-year-old male presents emergency department chief complaint of right finger pain and swelling. Patient states that 4 days ago he noticed that his right second digit was erythematous and swollen, most predominantly at the distal end of the metacarpal. States that yesterday went to his primary care provider where they gave him a shot of an antibiotic in office and sent him home on an antibiotic, which she does not remember the name of. Denies any trauma to the affected finger. Patient denies any nausea, vomiting, dizziness, lightheadedness, fevers. Denies a history of gout. (Marcy Hutson) - Related Data Home Medications Medication Instructions Recorded Confirmed Albuterol Sulfate [Ventolin HFA] 2 puff INHALATION RT-Q4H PRN 02/26/15 08/30/23 Fenofibrate 160 mg PO DAILY 02/26/15 08/30/23 Hydrochlorothiazide 25 mg PO DAILY 02/26/15 08/30/23 Ibuprofen [Motrin] 800 mg PO TID PRN 02/26/15 08/30/23 Losartan Potassium 100 mg PO DAILY 02/26/15 08/30/23 busPIRone HCL [Buspirone HCl] 10 mg PO BID 02/26/15 08/30/23 Atorvastatin [Lipitor] 40 mg PO DAILY 12/21/18 08/30/23 Clotrimazole/Betameth Cream 1 applic TOPICAL BID 12/21/18 08/30/23 [Lotrisone] carisoprodoL [Soma] 350 mg PO BID 12/21/18 08/30/23 diazePAM 10 mg PO BID 12/21/18 08/30/23 Omeprazole [PriLOSEC] 20 mg PO DAILY 05/30/20 08/30/23 Pregabalin 200 mg PO BID 08/06/20 08/30/23 Amoxic-Pot Clav 875-125Mg 1 tab PO BID 08/30/23 08/30/23 [Augmentin 875-125] Citalopram Hydrobromide [CeleXA] 20 mg PO DAILY 08/30/23 08/30/23 Dulaglutide [Trulicity] 0.75 mg SQ Q7D 08/30/23 08/30/23 Phentermine HCl [Adipex-P] 37.5 mg PO DAILY 08/30/23 08/30/23 metFORMIN HCL [Glucophage] 1,000 mg PO BID-W/MEALS 08/30/23 08/30/23 Allergies Allergy/AdvReac Type Severity Reaction Status Date / Time No Known Allergies Allergy Verified 08/30/23 16:39 Review of Systems ROS Other: All systems not noted in ROS Statement are negative. <Marcy Hutson - Last Filed: 08/30/23 15:52> ROS Other: All systems not noted in ROS Statement are negative. <Kai Villarreal - Last Filed: 08/31/23 20:51> ROS Statement: Those systems with pertinent positive or pertinent negative responses have been documented in the HPI. Past Medical History Past Medical History: COPD, Diabetes Mellitus, GERD/Reflux, Hearing Disorder / Deafness, Hyperlipidemia, Hypertension Additional Past Medical History / Comment(s): Varicose veins, Back and shoulder pain/problems, Bilat inguinal hernia currently History of Any Multi-Drug Resistant Organisms: MRSA Date of last positivie culture/infection: 2013 MDRO Source:: rt nipple Past Surgical History: Heart Catheterization, Hernia Repair Additional Past Surgical History / Comment(s): polyps removed from throat. Heart cath 05/30/20 - nl Past Anesthesia/Blood Transfusion Reactions: No Reported Reaction Additional Past Anesthesia/Blood Transfusion Reaction / Comment(s): Told "he had trouble breathing" when throat polyps removed Past Psychological History: Anxiety Smoking Status: Current every day smoker Past Alcohol Use History: None Reported Past Drug Use History: Marijuana - Past Family History Mother Family Medical History: Cancer <Marcy Hutson - Last Filed: 08/30/23 15:52> General Exam Limitations: no limitations General appearance: alert, in no apparent distress Head exam: Present: atraumatic, normocephalic, normal inspection Eye exam: Present: normal appearance, PERRL, EOMI. Absent: scleral icterus, conjunctival injection, periorbital swelling ENT exam: Present: normal exam, mucous membranes moist Neck exam: Present: normal inspection. Absent: tenderness, meningismus, lymphadenopathy Respiratory exam: Present: normal lung sounds bilaterally. Absent: respiratory distress, wheezes, rales, rhonchi, stridor Cardiovascular Exam: Present: regular rate, normal rhythm, normal heart sounds. Absent: systolic murmur, diastolic murmur, rubs, gallop, clicks GI/Abdominal exam: Present: soft, normal bowel sounds. Absent: distended, tenderness, guarding, rebound, rigid Right Hand Wrist exam: Present: tenderness, swelling, erythema, other (erythematous second digit with edema and erythematous border extending proximally on the right hand). Absent: full ROM, laceration (no obvious signs of laceration or ulceration) Neuro motor exam: Present: wrist extension intact, thumb opposition intact, fingers 2-5 abduction intact Vascular: Absent: vascular compromise Back exam: Present: normal inspection Neurological exam: Present: alert, oriented X3, CN II-XII intact Psychiatric exam: Present: normal affect, normal mood Skin exam: Present: warm, dry, intact, normal color, other (erythematous right distal hand and 2nd digit with edema). Absent: rash <Marcy Hutson - Last Filed: 08/30/23 15:52> Course Vital Signs 08/30/23 08/30/23 13:22 16:58 Temperature 98.2 F Pulse Rate 96 88 Respiratory 18 20 Rate Blood Pressure 138/83 128/86 O2 Sat by Pulse 96 99 Oximetry Medical Decision Making <Marcy Hutson - Last Filed: 08/30/23 15:52> - Lab Data Result diagrams: 08/31/23 05:27 08/31/23 05:27 <Kai Villarreal - Last Filed: 08/31/23 20:51> - Medical Decision Making Was pt. sent in by a medical professional or institution (, PA, [employer], urgent care, hospital, or longterm...) When possible be specific @ -No Did you speak to anyone other than the patient for history (EMS, parent, family, police, friend...)? What history was obtained from this source @ -No Did you review nursing and triage notes (agree or disagree)? Why? @ -I reviewed and agree with nursing and triage notes Were old charts reviewed (outside hosp., previous admission, EMS record, old EKG, old radiological studies, urgent care reports/EKG's, longterm records)? Report findings @ -No old charts were reviewed Differential Diagnosis (chest pain, altered mental status, abdominal pain women, abdominal pain men, vaginal bleeding, weakness, fever, dyspnea, syncope, headache, dizziness, GI bleed, back pain, seizure, CVA, palpatations, mental health, musculoskeletal)? @ -Differential Musculoskeletal Muscular strain, contusion, ligament sprain, fracture, arthritis, septic arthritis, bursitis, cellulitis, muscle spasm, nerve compression, DVT, arterial occlusion, herpes zoster, electrolyte abnormality, tumor.... This is not meant to be in all inclusive list EKG interpreted by me (3pts min.). @ -None X-rays interpreted by me (1pt min.). @ -X-ray of right hand with soft tissue swelling throughout the hand particularly over the second and third digits and degeneration at the third distal metacarpal phalangeal joint and osteophyte formation. CT interpreted by me (1pt min.). @ -None done U/S interpreted by me (1pt. min.). @ -None done What testing was considered but not performed or refused? (CT, X-rays, U/S, labs)? Why? @ -None What meds were considered but not given or refused? Why? @ -None Did you discuss the management of the patient with other professionals (professionals i.e. , PA, [employer], lab, RT, psych nurse, oncology social work, insecticide expert, teacher, armor officer, director of casework)? Give summary @ -management with Dr. Villarreal and orthopedic on-call team. Orthopedic team would like patient to be admitted with IV antibiotics and will be on consult for evaluation.s critical care preformed Was smoking cessation discussed for >3mins.? @ -No Wa (if so, how long)? @ -No Were there social determinants of health that impacted care today? How? (Homelessness, low income, unemployed, alcoholism, drug addiction, transportation, low edu. Level, literacy, decrease access to med. care, snf, rehab)? @ -No Was there de-escalation of care discussed even if they declined (Discuss DNR or withdrawal of care, Hospice)? DNR status @ -No What co-morbidities impacted this encounter? (DM, HTN, Smoking, COPD, CAD, Cancer, CVA, ARF, Chemo, Hep., AIDS, mental health diagnosis, sleep apnea, morbid obesity)? @ -None Was patient admitted / discharged? Hospital course, mention meds given and route, prescriptions, significant lab abnormalities, going to OR and other pertinent info. @ - admitted. 57-year-old male with chief complaint of right hand second digit swelling and pain. X-ray of right hand with soft tissue swelling throughout the hand particularly over the second and third digits and degeneration at the third distal metacarpal phalangeal joint and osteophyte formation. Will be admitted to general medicine for IV antibiotics and orthopedics will be on consult for further intervention. Blood cultures ordered along with basic chemistry and CBC. Undiagnosed new problem with uncertain prognosis? @ -No Drug Therapy requiring intensive monitoring for toxicity (Heparin, Nitro, Insulin, Cardizem)? @ -No Were any procedures done? @ -No Diagnosis/symptom? @ -cellulitis Acute, or Chronic, or Acute on Chronic? @ -acute Uncomplicated (without systemic symptoms) or Complicated (systemic symptoms)? @ -Uncomplicated Side effects of treatment? @ -No Exacerbation, Progression, or Severe Exacerbation? @ -No Poses a threat to life or bodily function? How? (Chest pain, [place], [place], pneumonia, PE, COPD, DKA, ARF, appy, cholecystitis, CVA, Diverticulitis, Homicidal, Suicidal, threat to staff... and all critical care pts) @ -No (Marcy Hutson) I did reevaluate patient myself. Patient does have swollen finger with significant discomfort. Swelling is more dorsally however somewhat fusiform. There is nonspecific tenderness over the flexor tendon or pain with extension. Finger however is held in partial flexion. I did recommend admission with IV antibiotics and orthopedic consult who was called and will evaluate. SUPERVISORY NOTE: I have reviewed all documentation, results, and performed the MDM in its entirety, which constitutes a substantive portion of the visit. (Kai Villarreal) - Lab Data Lab Results 08/30/23 08/30/23 Range/Units 15:33 15:33 WBC 11.4 H (3.8-10.6) k/uL RBC 4.57 (4.30-5.90) m/uL Hgb 12.4 L (13.0-17.5) gm/dL Hct 38.3 L (39.0-53.0) % MCV 83.9 (80.0-100.0) fL MCH 27.1 (25.0-35.0) pg MCHC 32.3 (31.0-37.0) g/dL RDW 14.5 (11.5-15.5) % Plt Count 213 (150-450) k/uL MPV 10.1 Neutrophils % 74 % Lymphocytes % 14 % Monocytes % 6 % Eosinophils % 4 % Basophils % 0 % Neutrophils # 8.4 H (1.3-7.7) k/uL Lymphocytes # 1.6 (1.0-4.8) k/uL Monocytes # 0.7 (0-1.0) k/uL Eosinophils # 0.4 (0-0.7) k/uL Basophils # 0.1 (0-0.2) k/uL Sodium 136 L (137-145) mmol/L Potassium 4.1 (3.5-5.1) mmol/L Chloride 101 (98-107) mmol/L Carbon Dioxide 25 (22-30) mmol/L Anion Gap 10 mmol/L BUN 24 H (9-20) mg/dL Creatinine 0.96 (0.66-1.25) mg/dL Est GFR (CKD-EPI)AfAm >90 (>60 ml/min/1.73 sqM) Est GFR (CKD-EPI)NonAf 89 (>60 ml/min/1.73 sqM) Glucose 108 H (74-99) mg/dL Calcium 10.0 (8.4-10.2) mg/dL Total Bilirubin 0.4 (0.2-1.3) mg/dL AST 36 (17-59) U/L ALT 28 (4-49) U/L Alkaline Phosphatase 72 (38-126) U/L Total Protein 6.9 (6.3-8.2) g/dL Albumin 4.2 (3.5-5.0) g/dL Disposition Decision to Admit Reason: Admit from EC Decision Time: 15:52 <Marcy Hutson - Last Filed: 08/30/23 15:52> <Kai Villarreal - Last Filed: 08/31/23 20:51> Clinical Impression: Cellulitis of finger of right hand Disposition: ADMITTED IP TO THIS HOSP Condition: Good
[2023-08-30] MEDS: KETOROLAC 15 MG/ML 1 ML VIAL IM STA (13:58)
--- NOTE | 2023-08-30 14:27 | XR ---
EXAMINATION TYPE: XR hand complete RT DATE OF EXAM: 08/30/2023 1:56 PM CLINICAL INDICATION:Male, 57 years old with history of finger swelling and deformity; [facility] COMPARISON: 11/10/2021 TECHNIQUE: XR hand complete RT Frontal, lateral and oblique views were obtained. FINDINGS/IMPRESSION: 1. Soft tissue swelling throughout the hand particularly of the second and third digit. No radiopaqu e foreign bodies. Correlate for cellulitis. Consider MRI evaluation of the hand. 2. Prior remote injury to the third digit distal phalanx noted. 3. Degeneration changes worse at the third digit metacarpophalangeal joint with joint space tearing osteophyte formation.
[2023-08-30] MEDS: MORPHINE SULFATE 4 MG/ML SYRINGE IVP STA (15:58)
[2023-08-30 15:59] LABS: Basophils # (A) 0.1 k/uL (0-0.2); Basophils % (A) 0 %; Eosinophils # (A) 0.4 k/uL (0-0.7); Eosinophils % (A) 4 %; HCT 38.3 % (39.0-53.0); HGB 12.4 gm/dL (13.0-17.5); Lymphocytes # (A) 1.6 k/uL (1.0-4.8); Lymphocytes % (A) 14 %; MCH 27.1 pg (25.0-35.0); MCHC 32.3 g/dL (31.0-37.0); MCV 83.9 fL (80.0-100.0); Mean Platelet Volume 10.1; Monocytes # (A) 0.7 k/uL (0-1.0); Monocytes % (A) 6 %; Neutrophils # (A) 8.4 k/uL (1.3-7.7); Neutrophils % (A) 74 %; Platelet Count 213 k/uL (150-450); RBC 4.57 m/uL (4.30-5.90); RDW 14.5 % (11.5-15.5); WBC 11.4 k/uL (3.8-10.6)
[2023-08-30] MEDS ORDERED: VANCOMYCIN IV PER PHARMACY 1 EACH MISC MISCELLANE PRN (16:06)
[2023-08-30] MEDS ORDERED: ONDANSETRON 4 MG/2 ML VIAL IVP PRN (16:08)
[2023-08-30] MEDS ORDERED: NALOXONE 0.4 MG/ML 1 ML VIAL IV PRN (16:08)
[2023-08-30 16:11] LABS: ALT 28 U/L (4-49); AST 36 U/L (17-59); African American GFR (CKD) >90 (>60 ml/min/1.73 sqM); Albumin 4.2 g/dL (3.5-5.0); Alkaline Phosphatase 72 U/L (38-126); Anion Gap 10 mmol/L; Blood Urea Nitrogen 24 mg/dL (9-20); Carbon Dioxide 25 mmol/L (22-30); Chloride 101 mmol/L (98-107); Glucose 108 mg/dL (74-99); Non-African American GFR(CKD) 89 (>60 ml/min/1.73 sqM); Potassium 4.1 mmol/L (3.5-5.1); Sodium 136 mmol/L (137-145); Total Bilirubin 0.4 mg/dL (0.2-1.3); Total Protein 6.9 g/dL (6.3-8.2)
[2023-08-30] MEDS: AMPICILLIN-SULBACTAM 1.5 GM in SODIUM CHLORIDE 0.9% 50 ML IVPB STA (16:28)
[2023-08-30] MEDS: VANCOMYCIN 1,500 MG in SODIUM CHLORIDE 0.9% 500 ML 500 ML IVPB STA (16:59)
[2023-08-30] MEDS: VANCOMYCIN 1,000 MG in SODIUM CHLORIDE 0.9% 250 ML IVPB STA (17:23)
[2023-08-30] MEDS ORDERED: DEXTROSE 50% SYRINGE 50 ML IVP PRN ×2 (18:21)
[2023-08-30] MEDS ORDERED: ALBUTEROL HFA INHALER INHALATION PRN (18:53)
[2023-08-30] MEDS ORDERED: ALBUTEROL NEBULIZED 2.5 MG/3 ML INHALATION PRN (19:02)
[2023-08-30] MEDS: NICOTINE 14MG/24HR PATCH TRANSDERM SCH (19:37)
[2023-08-30 20:07] LABS: Glucose,Whole Blood 97 mg/dL (70-110)
[2023-08-30] MEDS: diazePAM 5 MG TAB PO SCH (20:18)
[2023-08-30] MEDS: PREGABALIN 100 MG CAP PO SCH (20:18)
[2023-08-30] MEDS: INSULIN ASPART (NovoLOG) 100 UNIT/ML VIAL SQ SCH (20:18)
[2023-08-30] MEDS: busPIRone HCl 10 MG TAB PO SCH (20:18)
[2023-08-30] MEDS: MORPHINE SULFATE 4 MG/ML SYRINGE IV PRN (20:19)
[2023-08-30] MEDS: carisoprodoL 350 MG TAB PO SCH (20:44)
[2023-08-30] MEDS ORDERED: INSULIN ASPART (NovoLOG) 100 UNIT/ML VIAL SQ SCH (21:00)
[2023-08-31] MEDS: VANCOMYCIN 1,500 MG in SODIUM CHLORIDE 0.9% 500 ML 500 ML IVPB SCH ×2 (05:20→12:53)
[2023-08-31 06:11] LABS: African American GFR (CKD) >90 (>60 ml/min/1.73 sqM); Anion Gap 7 mmol/L; Blood Urea Nitrogen 19 mg/dL (9-20); Calcium 9.3 mg/dL (8.4-10.2); Carbon Dioxide 28 mmol/L (22-30); Chloride 101 mmol/L (98-107); Glucose 117 mg/dL (74-99); Non-African American GFR(CKD) >90 (>60 ml/min/1.73 sqM); Potassium 3.8 mmol/L (3.5-5.1); Sodium 136 mmol/L (137-145)
[2023-08-31 07:01] LABS: Glucose,Whole Blood 106 mg/dL (70-110)
[2023-08-31] MEDS: LOSARTAN 50 MG TAB PO SCH (08:45)
[2023-08-31] MEDS: metFORMIN 500 MG TAB PO SCH (08:46)
[2023-08-31] MEDS: PANTOPRAZOLE 40 MG TABLET PO SCH (08:46)
[2023-08-31] MEDS: CITALOPRAM HYDROBROMIDE 20 MG TAB PO SCH (08:46)
[2023-08-31] MEDS: ATORVASTATIN 40 MG TAB PO SCH (08:46)
[2023-08-31] MEDS: hydroCHLOROthiazide 25 MG TAB PO SCH (08:46)
[2023-08-31] MEDS: FENOFIBRATE 160 MG TAB PO SCH (08:48)
[2023-08-31 09:42] LABS: Basophils # (A) 0.06 X 10*3/uL (0.00-0.10); Basophils % (A) 0.5 %; Eosinophils # (A) 0.47 X 10*3/uL (0.04-0.35); Eosinophils % (A) 3.9 %; HCT 39.8 % (39.6-50.0); HGB 12.9 g/dL (13.0-17.0); Lymphocytes # (A) 1.42 X 10*3/uL (0.90-5.00); Lymphocytes % (A) 11.9 %; MCH 27.3 pg (27.0-32.0); MCHC 32.4 g/dL (32.0-37.0); MCV 84.1 FL (80.0-97.0); Mean Platelet Volume 12.3 FL (9.5-12.2); Monocytes # (A) 1.13 X 10*3/uL (0.20-1.00); Monocytes % (A) 9.4 %; NRBC Per 100 WBC 0 X 10*3/uL (0.00-0.01); Neutrophils # (A) 8.85 X 10*3/uL (1.80-7.70); Platelet Count 230 X 10*3/uL (140-440); RBC 4.73 X 10*6/uL (4.40-5.60); RDW 14.4 % (11.5-14.5); WBC 11.97 X 10*3/uL (4.50-10.00)
--- NOTE | 2023-08-31 10:55 | P.CNOR ---
History of Present Illness - [facility] Consult date: 08/31/23 Requesting physician: Marcy Hutson Consult reason: other (Right index finger cellulitis) History of present illness: History of Presenting Illness Patient is a pleasant 57-year-old male who presented to the ER after failed outpatient antibiotic therapy for right index finger cellulitis. Patient reports increasing swelling and blistering of the right index finger onto the dorsal region of the right hand with an onset of approximately 45 days ago. Patient states he didn't seek medical attention with his PCP and was placed on a unknown antibiotic. Patient states it started at the cuticle area and nailbed of the right index finger with no known injury or trauma. Patient does state he has a history of frostbite to his right index and third digit approximately 10 years ago. He states the tips of those 2 fingers continue to heal and crack. Patient does live alone. He is independent. Patient has a past medical history of COPD, Diabetes Mellitus, GERD/Reflux, Hearing Disorder / Deafness, Hyperlipidemia, Hypertension. He denies any orthopedic history. Patient seen and examined this morning. Patient is sitting up in chair. He states the pain is managed on current regimen. Increased swelling of the right index finger overnight. Erythema of the dorsal right hand has improved since IV antibiotics. Patient states that he had small amount of drainage from the cuticle area of the right index finger. Patient has been afebrile, denies nausea/vomiting, or shortness of breath. X-ray of the right hand completed on 08/30/2023 demonstrates soft tissue swelling throughout the hand particularly of the second and third digit. No radiopaque foreign bodies. Correlate for cellulitis. Prior remote injury to the third digit distal phalanx noted. Degeneration changes worse at the third digit metacarpophalangeal joint with joint space tearing osteophyte formation. Review of Systems Pertinent positives and negatives as discussed in HPI, a complete review of systems was performed and all other systems are negative. Physical Examination RIGHT HAND Inspection: Negative for any open fractures. Erythematous right distal hand and 2nd digit with edema and blistering Sensation: Sensation is intact. Palpation: Moderate tenderness to the right dorsal index finger. No flexor tenderness noted. Range of motion: Patient does have right hand and wrist extension intact, thumb opposition intact, fingers 2-5 abduction intact Neurovascular: Radial pulse intact, 2+ bilaterally. Cap refill under 3 seconds in digits upper extremities. Assessment and Plan Cellulitis of index finger of right hand At this time we recommend I&D of the right index finger. Patient will be scheduled for tomorrow 09/01/2023. He is to be nothing by mouth at midnight. Continue with IV antibiotics. 2. Appreciate medical management 3. Pain management - Tylenol ordered, continue to elevate right hand on pillow. Initiate Hib[place] soaks for 20m TID. 4. GI prophylaxis - per medicine 5. DVT prophylaxis - per medicine 6. PT/OT - weightbearing as tolerated 7. Appreciate consult I reviewed and discussed this case with my attending Dr. Li, whom has reviewed this chart and films and is in agreement with assessment and plan of care as outlined above. I have personally seen and examined the patient, performed the documentation and the assessment and plan as written. Number of minutes spent on the visit: 20m. Past Medical History Past Medical History: COPD, Diabetes Mellitus, GERD/Reflux, Hearing Disorder / Deafness, Hyperlipidemia, Hypertension Additional Past Medical History / Comment(s): Varicose veins, Back and shoulder pain/problems, Bilat inguinal hernia currently History of Any Multi-Drug Resistant Organisms: MRSA Year Discovered:: 12/15/2013 MDRO Source:: right nipple Past Surgical History: Heart Catheterization, Hernia Repair Additional Past Surgical History / Comment(s): polyps removed from throat. Heart cath 05/30/20 - 8 hernia repairs Past Anesthesia/Blood Transfusion Reactions: No Reported Reaction Additional Past Anesthesia/Blood Transfusion Reaction / Comm: Told "he had trouble breathing" when throat polyps removed Past Psychological History: Anxiety Smoking Status: Current every day smoker Past Alcohol Use History: None Reported Additional Past Alcohol Use History / Comment(s): Smokes 1/2 ppd, since 1971, was up to 1 1/2 ppd in past- patuient stated he started smoking at 6 years old. No alcohol since 2016 est. Past Drug Use History: Marijuana Additional Drug Use History / Comment(s): daily - Past Family History Mother Family Medical History: Cancer Additional Family Medical History / Comment(s): lung cancer Medications and Allergies Home Medications Medication Instructions Recorded Confirmed Type Albuterol Sulfate [Ventolin HFA] 2 puff INHALATION RT-Q4H PRN 02/26/15 08/30/23 History Fenofibrate 160 mg PO DAILY 02/26/15 08/30/23 History Hydrochlorothiazide 25 mg PO DAILY 02/26/15 08/30/23 History Ibuprofen [Motrin] 800 mg PO TID PRN 02/26/15 08/30/23 History Losartan Potassium 100 mg PO DAILY 02/26/15 08/30/23 History busPIRone HCL [Buspirone HCl] 10 mg PO BID 02/26/15 08/30/23 History Atorvastatin [Lipitor] 40 mg PO DAILY 12/21/18 08/30/23 History Clotrimazole/Betameth Cream 1 applic TOPICAL BID 12/21/18 08/30/23 History [Lotrisone] carisoprodoL [Soma] 350 mg PO BID 12/21/18 08/30/23 History diazePAM 10 mg PO BID 12/21/18 08/30/23 History Omeprazole [PriLOSEC] 20 mg PO DAILY 05/30/20 08/30/23 History Pregabalin 200 mg PO BID 08/06/20 08/30/23 History Amoxic-Pot Clav 875-125Mg 1 tab PO BID 08/30/23 08/30/23 History [Augmentin 875-125] Citalopram Hydrobromide [CeleXA] 20 mg PO DAILY 08/30/23 08/30/23 History Dulaglutide [Trulicity] 0.75 mg SQ Q7D 08/30/23 08/30/23 History Phentermine HCl [Adipex-P] 37.5 mg PO DAILY 08/30/23 08/30/23 History metFORMIN HCL [Glucophage] 1,000 mg PO BID-W/MEALS 08/30/23 08/30/23 History Allergies Allergy/AdvReac Type Severity Reaction Status Date / Time No Known Allergies Allergy Verified 08/30/23 16:39 Results - Labs Labs: Abnormal Lab Results - Last 24 Hours (Table) 08/30/23 08/30/23 08/31/23 Range/Units 15:33 15:33 05:27 WBC 11.4 H (3.8-10.6) k/uL Hgb 12.4 L (13.0-17.5) gm/dL Hct 38.3 L (39.0-53.0) % Neutrophils # 8.4 H (1.3-7.7) k/uL Sodium 136 L 136 L (137-145) mmol/L BUN 24 H (9-20) mg/dL Glucose 108 H 117 H (74-99) mg/dL H & H 08/30/23 Range/Units 15:33 Hgb 12.4 L (13.0-17.5) gm/dL Hct 38.3 L (39.0-53.0) % Result Diagrams: 08/31/23 05:27 08/31/23 05:27
[2023-08-31 12:56] LABS: Glucose,Whole Blood 79 mg/dL (70-110)
--- NOTE | 2023-08-31 15:00 | P.HPIM ---
History of Present Illness H&P Date: 08/30/23 Chief Complaint: Pain and swelling right middle finger 57-year-old male, history of hypertension, hyperlipidemia, diabetes mellitus, COPD, presents emergency department chief complaint of right finger pain and swelling. Patient states that 4 days ago he noticed that his right second digit was erythematous and swollen, most predominantly at the distal end of the metacarpal. States that yesterday went to his primary care provider where they gave him a shot of an antibiotic in office and sent him home on an antibiotic, which she does not remember the name of. Denies any trauma to the affected finger. Patient denies any nausea, vomiting, dizziness, lightheadedness, f jorge luis. Denies a history of gout. Blood work completed in ED reveals WBC of 11.4, hemoglobin of 12.4 and platelet count of 213, sodium 136, potassium of 4.1, BUNs/creatinine of 24/0.96 X-ray of right hand reveals soft tissue swelling throughout the hand particularly second and third digit with no evidence of radiopaque foreign bodies Review of Systems REVIEW OF SYSTEMS: CONSTITUTIONAL: No fever, no malaise, no fatigue. HEENT: No recent visual problems or hearing problems. Denied any sore throat. CARDIOVASCULAR: No chest pain, orthopnea, PND, no palpitations, no syncope. PULMONARY: No shortness of breath, no cough, no hemoptysis. GASTROINTESTINAL: No diarrhea, no nausea, no vomiting, no abdominal pain. NEUROLOGICAL: No headaches, no weakness, no numbness. HEMATOLOGICAL: Denies any bleeding or petechiae. GENITOURINARY: Denies any burning micturition, frequency, or urgency. MUSCULOSKELETAL/RHEUMATOLOGICAL: Denies any joint pain, swelling, or any muscle pain. ENDOCRINE: Denies any polyuria or polydipsia. The rest of the 14-point review of systems is negative. Past Medical History Past Medical History: COPD, Diabetes Mellitus, GERD/Reflux, Hearing Disorder / Deafness, Hyperlipidemia, Hypertension Additional Past Medical History / Comment(s): Varicose veins, Back and shoulder pain/problems, Bilat inguinal hernia currently History of Any Multi-Drug Resistant Organisms: MRSA Date of last positivie culture/infection: 12/15/2013 MDRO Source:: right nipple Past Surgical History: Heart Catheterization, Hernia Repair Additional Past Surgical History / Comment(s): polyps removed from throat. Heart cath 05/30/20 - 8 hernia repairs Past Anesthesia/Blood Transfusion Reactions: No Reported Reaction Additional Past Anesthesia/Blood Transfusion Reaction / Comment(s): Told "he had trouble breathing" when throat polyps removed Past Psychological History: Anxiety Smoking Status: Current every day smoker Past Alcohol Use History: None Reported Additional Past Alcohol Use History / Comment(s): Smokes 1/2 ppd, since 1971, was up to 1 1/2 ppd in past- patuient stated he started smoking at 6 years old. No alcohol since 2016 est. Past Drug Use History: Marijuana Additional Drug Use History / Comment(s): daily - Past Family History Mother Family Medical History: Cancer Additional Family Medical History / Comment(s): lung cancer Medications and Allergies Home Medications Medication Instructions Recorded Confirmed Type Albuterol Sulfate [Ventolin HFA] 2 puff INHALATION RT-Q4H PRN 02/26/15 08/30/23 History Fenofibrate 160 mg PO DAILY 02/26/15 08/30/23 History Hydrochlorothiazide 25 mg PO DAILY 02/26/15 08/30/23 History Ibuprofen [Motrin] 800 mg PO TID PRN 02/26/15 08/30/23 History Losartan Potassium 100 mg PO DAILY 02/26/15 08/30/23 History busPIRone HCL [Buspirone HCl] 10 mg PO BID 02/26/15 08/30/23 History Atorvastatin [Lipitor] 40 mg PO DAILY 12/21/18 08/30/23 History Clotrimazole/Betameth Cream 1 applic TOPICAL BID 12/21/18 08/30/23 History [Lotrisone] carisoprodoL [Soma] 350 mg PO BID 12/21/18 08/30/23 History diazePAM 10 mg PO BID 12/21/18 08/30/23 History Omeprazole [PriLOSEC] 20 mg PO DAILY 05/30/20 08/30/23 History Pregabalin 200 mg PO BID 08/06/20 08/30/23 History Amoxic-Pot Clav 875-125Mg 1 tab PO BID 08/30/23 08/30/23 History [Augmentin 875-125] Citalopram Hydrobromide [CeleXA] 20 mg PO DAILY 08/30/23 08/30/23 History Dulaglutide [Trulicity] 0.75 mg SQ Q7D 08/30/23 08/30/23 History Phentermine HCl [Adipex-P] 37.5 mg PO DAILY 08/30/23 08/30/23 History metFORMIN HCL [Glucophage] 1,000 mg PO BID-W/MEALS 08/30/23 08/30/23 History Allergies Allergy/AdvReac Type Severity Reaction Status Date / Time No Known Allergies Allergy Verified 08/30/23 16:39 Physical Exam Vitals: Vital Signs Temp Pulse Pulse Resp BP BP Pulse Ox 08/30/23 17:27 98.3 F 84 19 162/78 97 08/30/23 16:58 88 20 128/86 99 08/30/23 13:22 98.2 F 96 18 138/83 96 Intake and Output 08/30/23 08/30/23 08/30/23 06:59 14:59 22:59 Other: Weight 87.543 kg 87.543 kg General appearance: alert, in no apparent distress Head exam: Present: atraumatic, normocephalic, normal inspection Eye exam: Present: normal appearance, PERRL, EOMI. Absent: scleral icterus, conjunctival injection, periorbital swelling Neck exam: Present: normal inspection. Absent: tenderness, meningismus, lymphadenopathy Respiratory exam: Present: normal lung sounds bilaterally. Absent: respiratory distress, wheezes, rales, rhonchi, stridor Cardiovascular Exam: Present: regular rate, normal rhythm, normal heart sounds. Absent: systolic murmur, diastolic murmur, rubs, gallop, clicks GI/Abdominal exam: Present: soft, normal bowel sounds. Absent: distended, tenderness, guarding, rebound, rigid Right Hand Wrist exam: Present: tenderness, swelling, erythema, other (erythematous second digit with edema and erythematous border extending proximally on the right hand). Absent: full ROM, laceration (no obvious signs of laceration or ulceration) Neuro motor exam: Present: wrist extension intact, thumb opposition intact, fingers 2-5 abduction intact Neurological exam: Present: alert, oriented X3, CN II-XII intact Skin exam: Present: warm, dry, intact, normal color, other (erythematous right distal hand and 2nd digit with edema). Absent: rash Results CBC & Chem 7: 08/31/23 05:27 08/31/23 05:27 Labs: Abnormal Lab Results - Last 24 Hours (Table) 08/30/23 08/30/23 Range/Units 15:33 15:33 WBC 11.4 H (3.8-10.6) k/uL Hgb 12.4 L (13.0-17.5) gm/dL Hct 38.3 L (39.0-53.0) % Neutrophils # 8.4 H (1.3-7.7) k/uL Sodium 136 L (137-145) mmol/L BUN 24 H (9-20) mg/dL Glucose 108 H (74-99) mg/dL Thrombosis Risk Factor Assmnt - Choose All That Apply Each Factor Represents 1 point: Age 41-60 years, Obesity (BMI >25), Varicose veins Thrombosis Risk Factor Assessment Total Risk Factor Score: 3 Thrombosis Risk Factor Assessment Level: Moderate Risk Assessment and Plan Assessment: 1. Severe cellulitis right index finger --Patient has been placed on IV antibiotics in form of Unasyn; will monitor CBC, CRP and procalcitonin -- Patient recommended to keep right hand elevated -- Patient has been evaluated by orthopedic surgery and will be made n.p.o. after midnight tonight for incision and drainage -- ID is consulted for recommendations on antibiotic therapy 2. Uncontrolled pain; morphine 4 mg IV every 4 hours as needed 3. Hypertension; losartan 100 mg daily; hydrochlorothiazide 25 mg daily 4. Hyperlipidemia; Lipitor 40 mg daily; fenofibrate 160 mg daily 5. Diabetes mellitus type 2; continue home dose of metformin 1000 mg twice daily and monitor Accu-Cheks before every meal and at bedtime with insulin sliding scale 6. Neuropathy; patient is currently on Lyrica 200 mg twice daily 7. Anxiety/depression; Celexa 20 mg daily; Valium 10 mg twice daily DVT prophylaxis; SCDs only given planned surgical procedure CODE STATUS; full code
--- NOTE | 2023-08-31 15:01 | P.PN ---
Subjective Progress Note Date: 08/31/23 57-year-old male, history of hypertension, hyperlipidemia, diabetes mellitus, COPD, presents emergency department chief complaint of right finger pain and swelling. Patient states that 4 days ago he noticed that his right second digit was erythematous and swollen, most predominantly at the distal end of the metacarpal. States that yesterday went to his primary care provider where they gave him a shot of an antibiotic in office and sent him home on an antibiotic, which she does not remember the name of. Denies any trauma to the affected finger. Patient denies any nausea, vomiting, dizziness, lightheadedness, fevers. Denies a history of gout. Blood work completed in ED reveals WBC of 11.4, hemoglobin of 12.4 and platelet count of 213, sodium 136, potassium of 4.1, BUNs/creatinine of 24/0.96 X-ray of right hand reveals soft tissue swelling throughout the hand particularly second and third digit with no evidence of radiopaque foreign bodies Objective - Vital Signs Vital signs: Vital Signs Temp 97.8 F 08/31/23 07:01 Pulse 69 08/31/23 07:01 Resp 16 08/31/23 07:01 BP 138/88 08/31/23 07:01 Pulse Ox 95 08/31/23 07:01 FiO2 Intake & Output 08/30/23 08/31/23 08/31/23 18:59 06:59 18:59 Intake Total 480 1200 Output Total 525 Balance 480 1200 -525 Weight 87.543 kg Intake: Oral 480 1200 Output: Urine 525 Other: # Voids 2 - Exam Head exam: Present: atraumatic, normocephalic, normal inspection Eye exam: Present: normal appearance, PERRL, EOMI. Absent: scleral icterus, conjunctival injection, periorbital swelling Neck exam: Present: normal inspection. Absent: tenderness, meningismus, lymphadenopathy Respiratory exam: Present: normal lung sounds bilaterally. Absent: respiratory distress, wheezes, rales, rhonchi, stridor Cardiovascular Exam: Present: regular rate, normal rhythm, normal heart sounds. Absent: systolic murmur, diastolic murmur, rubs, gallop, clicks GI/Abdominal exam: Present: soft, normal bowel sounds. Absent: distended, tenderness, guarding, rebound, rigid Right Hand Wrist exam: Present: tenderness, swelling, erythema, other (erythematous second digit with edema and erythematous border extending proximally on the right hand). Absent: full ROM, laceration (no obvious signs of laceration or ulceration) Neuro motor exam: Present: wrist extension intact, thumb opposition intact, fingers 2-5 abduction intact Neurological exam: Present: alert, oriented X3, CN II-XII intact - Labs CBC & Chem 7: 08/31/23 05:27 08/31/23 05:27 Labs: Abnormal Lab Results - Last 24 Hours (Table) 08/30/23 08/30/23 08/31/23 Range/Units 15:33 15:33 05:27 WBC 11.4 H (3.8-10.6) k/uL Hgb 12.4 L (13.0-17.5) gm/dL Hct 38.3 L (39.0-53.0) % MPV (9.5-12.2) FL Neutrophils # 8.4 H (1.3-7.7) k/uL Monocytes # (0.20-1.00) X 10*3/uL Eosinophils # (0.04-0.35) X 10*3/uL Sodium 136 L 136 L (137-145) mmol/L BUN 24 H (9-20) mg/dL Glucose 108 H 117 H (74-99) mg/dL 08/31/23 Range/Units 05:27 WBC 11.97 H (3.8-10.6) k/uL Hgb 12.9 L (13.0-17.5) gm/dL Hct (39.0-53.0) % MPV 12.3 H (9.5-12.2) FL Neutrophils # 8.85 H (1.3-7.7) k/uL Monocytes # 1.13 H (0.20-1.00) X 10*3/uL Eosinophils # 0.47 H (0.04-0.35) X 10*3/uL Sodium (137-145) mmol/L BUN (9-20) mg/dL Glucose (74-99) mg/dL Assessment and Plan Assessment: 1. Severe cellulitis right index finger --Patient has been placed on IV antibiotics in form of Unasyn; will monitor CBC, CRP and procalcitonin -- Patient recommended to keep right hand elevated -- Patient has been evaluated by orthopedic surgery and will be made n.p.o. after midnight tonight for incision and drainage -- ID is consulted for recommendations on antibiotic therapy 2. Uncontrolled pain; morphine 4 mg IV every 4 hours as needed 3. Hypertension; losartan 100 mg daily; hydrochlorothiazide 25 mg daily 4. Hyperlipidemia; Lipitor 40 mg daily; fenofibrate 160 mg daily 5. Diabetes mellitus type 2; continue home dose of metformin 1000 mg twice daily and monitor Accu-Cheks before every meal and at bedtime with insulin sliding scale 6. Neuropathy; patient is currently on Lyrica 200 mg twice daily 7. Anxiety/depression; Celexa 20 mg daily; Valium 10 mg twice daily DVT prophylaxis; SCDs only given planned surgical procedure CODE STATUS; full code
[2023-08-31] MEDS: AMPICILLIN-SULBACTAM 3 GM in SODIUM CHLORIDE 0.9% 100 ML IVPB SCH (17:33)
[2023-08-31 17:38] LABS: Glucose,Whole Blood 89 mg/dL (70-110)
[2023-08-31] MEDS ORDERED: NICOTINE 14MG/24HR PATCH TRANSDERM SCH (18:21)
[2023-08-31 20:27] LABS: Glucose,Whole Blood 116 mg/dL (70-110)
[2023-08-31] MEDS: ACETAMINOPHEN TAB 500 MG TAB PO PRN (20:43)
--- NOTE | 2023-08-31 23:16 | P.CONS ---
History of Present Illness - Reason for Consult Consult date: 08/31/23 Cellulitis Requesting physician: Marcy Hutson - Chief Complaint Increasing swelling and redness to the right index finger x few days - History of Present Illness Patient is a 57-year-old male past medical history significant for diabetes mellitus reflux hypertension hyperlipidemia COPD patient presenting to the hospital for evaluation of right index finger pain and swelling patient symptoms started about 4 days before presentation to the hospital when he no ticed some irritation at the nailbed denies any history of any trauma or injury subsequent noticed to having increasing swelling and redness that was extending to the right index finger patient has been seen by his PCP he received an intramuscular antibiotic and given oral antibiotic however he did not recall the name of that antibiotic noticed to have increasing swelling redness and pain for the patient present to the hospital patient complaining of throbbing pain to the index finger intensity is almost 10 out of 10 by the time he presented to hospital with associated swelling and redness denies any foul-smelling drainage patient on presentation to the hospital was afebrile the patient was not tachycardic hypotensive or hypoxic he did have white count of 11.97 with a left shift creatinine was normal liver isms are normal blood cultures obtained which are currently pending patient did have the hand x-ray soft tissue swelling throughout the hand particularly of the second and third digit no radiopaque foreign bodies patient was started on vancomycin infectious disease was consulted for further management of antibiotic therapy Review of Systems Positive point and negatives has been mentioned in the HPI, complete review of systems was performed and all other systems are negative Past Medical History Past Medical History: COPD, Diabetes Mellitus, GERD/Reflux, Hearing Disorder / Deafness, Hyperlipidemia, Hypertension Additional Past Medical History / Comment(s): Varicose veins, Back and shoulder pain/problems, Bilat inguinal hernia currently History of Any Multi-Drug Resistant Organisms: MRSA Year Discovered:: 12/15/2013 MDRO Source:: right nipple Past Surgical History: Heart Catheterization, Hernia Repair Additional Past Surgical History / Comment(s): polyps removed from throat. Heart cath 05/30/20 - 8 hernia repairs Past Anesthesia/Blood Transfusion Reactions: No Reported Reaction Additional Past Anesthesia/Blood Transfusion Reaction / Comm: Told "he had trouble breathing" when throat polyps removed Past Psychological History: Anxiety Smoking Status: Current every day smoker Past Alcohol Use History: None Reported Additional Past Alcohol Use History / Comment(s): Smokes 1/2 ppd, since 1971, wa s up to 1 1/2 ppd in past- patuient stated he started smoking at 6 years old. No alcohol since 2015 est. Past Drug Use History: Marijuana Additional Drug Use History / Comment(s): daily - Past Family History Mother Family Medical History: Cancer Additional Family Medical History / Comment(s): lung cancer Medications and Allergies Home Medications Medication Instructions Recorded Confirmed Type Albuterol Sulfate [Ventolin HFA] 2 puff INHALATION RT-Q4H PRN 02/26/15 08/30/23 History Fenofibrate 160 mg PO DAILY 02/26/15 08/30/23 History Hydrochlorothiazide 25 mg PO DAILY 02/26/15 08/30/23 History Ibuprofen [Motrin] 800 mg PO TID PRN 02/26/15 08/30/23 History Losartan Potassium 100 mg PO DAILY 02/26/15 08/30/23 History busPIRone HCL [Buspirone HCl] 10 mg PO BID 02/26/15 08/30/23 History Atorvastatin [Lipitor] 40 mg PO DAILY 12/21/18 08/30/23 History Clotrimazole/Betameth Cream 1 applic TOPICAL BID 12/21/18 08/30/23 History [Lotrisone] carisoprodoL [Soma] 350 mg PO BID 12/21/18 08/30/23 History diazePAM 10 mg PO BID 12/21/18 08/30/23 History Omeprazole [PriLOSEC] 20 mg PO DAILY 05/30/20 08/30/23 History Pregabalin 200 mg PO BID 08/06/20 08/30/23 History Citalopram Hydrobromide [CeleXA] 20 mg PO DAILY 08/30/23 08/30/23 History Dulaglutide [Trulicity] 0.75 mg SQ Q7D 08/30/23 08/30/23 History Phentermine HCl [Adipex-P] 37.5 mg PO DAILY 08/30/23 08/30/23 History metFORMIN HCL [Glucophage] 1,000 mg PO BID-W/MEALS 08/30/23 08/30/23 History Acetaminophen Tab [Tylenol] 1,000 mg PO Q6HR PRN tab 09/06/23 Rx HYDROcodone/APAP 7.5-325MG [[place] 1 each PO Q4H PRN #6 tab 09/06/23 Rx 7.5-325] Allergies Allergy/AdvReac Type Severity Reaction Status Date / Time No Known Allergies Allergy Verified 08/30/23 16:39 Physical Exam Vitals: Vital Signs Temp Pulse Pulse Resp BP BP Pulse Ox 08/31/23 07:01 97.8 F 69 16 138/88 95 08/31/23 02:00 97.4 F L 71 16 155/90 95 08/30/23 20:00 98.2 F 81 16 131/97 97 08/30/23 17:27 98.3 F 84 19 162/78 97 08/30/23 16:58 88 20 128/86 99 Intake and Output 08/30/23 08/31/23 08/31/23 22:59 06:59 14:59 Intake Total 480 1200 Output Total 525 Balance 480 1200 -525 Intake: Oral 480 1200 Output: Urine 525 Other: # Voids 2 Weight 87.543 kg GENERAL DESCRIPTION: Middle-aged male lying in bed, no distress. No tachypnea or accessory muscle of respiration use. HEENT: Shows Pallor , no scleral icterus. Oral mucous membrane is dry. No pharyngeal erythema or thrush NECK: Trachea central, no thyromegaly. LUNGS: Unlabored breathing. Clear to auscultation anteriorly. No wheeze or crackle. HEART: S1, S2, regular rate and rhythm. No loud murmur ABDOMEN: Soft, no tenderness , guarding or rigidity, no organomegaly EXTREMITIES: Right index finger with significant swelling redness induration SKIN: No rash, no masses palpable. NEUROLOGICAL: The patient is awake, alert, oriented x3, mood and affect normal. Results CBC & Chem 7: 09/03/23 07:07 09/06/23 05:48 Labs: Abnormal Lab Results - Last 24 Hours (Table) 08/30/23 08/30/23 08/31/23 Range/Units 15:33 15:33 05:27 WBC 11.4 H (3.8-10.6) k/uL Hgb 12.4 L (13.0-17.5) gm/dL Hct 38.3 L (39.0-53.0) % MPV (9.5-12.2) FL Neutrophils # 8.4 H (1.3-7.7) k/uL Monocytes # (0.20-1.00) X 10*3/uL Eosinophils # (0.04-0.35) X 10*3/uL Sodium 136 L 136 L (137-145) mmol/L BUN 24 H (9-20) mg/dL Glucose 108 H 117 H (74-99) mg/dL 08/31/23 Range/Units 05:27 WBC 11.97 H (3.8-10.6) k/uL Hgb 12.9 L (13.0-17.5) gm/dL Hct (39.0-53.0) % MPV 12.3 H (9.5-12.2) FL Neutrophils # 8.85 H (1.3-7.7) k/uL Monocytes # 1.13 H (0.20-1.00) X 10*3/uL Eosinophils # 0.47 H (0.04-0.35) X 10*3/uL Sodium (137-145) mmol/L BUN (9-20) mg/dL Glucose (74-99) mg/dL Assessment and Plan (1) Abscess of right index finger Status: Acute Code(s): L02.511 - CUTANEOUS ABSCESS OF RIGHT HAND SNOMED Code(s): 08636845571300267 (2) Cellulitis of finger of right hand Status: Acute Code(s): L03.011 - CELLULITIS OF RIGHT FINGER SNOMED Code(s): 30043919 Plan: 1patient with extensive right index finger abscess and cellulitis likely from gram-positive skin velvet underlying gram-negative infection less likely but not excluded 2-patient has been evaluated by orthopedics and planning for I&D at which time deep culture should be obtained 3-patient to continue with vancomycin while watching his kidney function closely we will add Unasyn to cover for gram-negative Multiple question concern answered We will follow on clinical condition and cultures to further adjust medication if needed Thank you for this consultation we will follow the patient along with you Dictation was produced using [employer] software. please excuse any grammatical, word or spelling errors. Time with Patient: Greater than 30
[2023-09-01] MEDS: VANCOMYCIN TROUGH DUE 1 EACH MISC MISCELLANE ONE (05:01)
[2023-09-01 05:25] LABS: African American GFR (CKD) >90 (>60 ml/min/1.73 sqM); Anion Gap 5 mmol/L; Blood Urea Nitrogen 15 mg/dL (9-20); Calcium 9.5 mg/dL (8.4-10.2); Carbon Dioxide 28 mmol/L (22-30); Chloride 105 mmol/L (98-107); Glucose 101 mg/dL (74-99); Non-African American GFR(CKD) >90 (>60 ml/min/1.73 sqM); Potassium 4.1 mmol/L (3.5-5.1); Sodium 138 mmol/L (137-145)
--- NOTE | 2023-09-01 07:16 | P.PN ---
Progress Note - Text Progress Note Date: 09/01/23 Orthopedic Surgery Risk Review Florentino Chowdhury is a 57 yo male presenting for evaluation on onset of RIF blistering, purulent drainage and pain,with inability to bear weight. He has a hx of osteomyelitis of the middle finger on this side as well. He denies any trauma or issues with this finger before. It was my pleasure to have seen and examined Florentino. In our visit today we have had a chance to go over subjective complaints, physical examination findings and treatments including the natural course history without intervention and various interventional options. His imaging demonstrates No acute osseous findings . On physical exam, Florentino demonstrates pain with motion of RIF with blistering over the etensor surface with purulent drainage coming from the epicyclical fold, which is NV intact at this time. I have explained to the patient that this fracture needs stabilization. Based on the patients imaging, physical exam, and the rapid progression and disabling nature of her symptoms, at this time I recommend surgery in the form or a: I&D of the RIF I discussed the risk and benefits of this procedure at length with Florentino. Questions were invited and answered, and the patient wishes to proceed as outlined below. Currently, I am recommendin. Right index finger irrigation and debridement 2. Review of surgical risks and benefits as well as an educational packet on the proposed surgical procedure. Risks: All surgical procedures come with inherent risks, including those related to positioning, anesthesia, intraoperative findings, and postoperative complications. It is important to understand that surgery does not come with any guarantee of a successful outcome as complications and adverse events are always possible. The patient was given a handout discussing the surgical procedure and risks associated with the intervention, both of which were discussed with the patient. These risks include but are not limited to the following: - Experiencing same, different or even worse symptoms compared to before surgery. - Requiring further surgery or other forms of treatment presently or at some time in the future . - On an extreme but fortunately relatively rare basis severe complication such as blindness, stroke, heart attack, temporary and/or permanent nerve injury, paralysis, coma, or may occur, sometimes without known explanation. - Surgical complications may include but are not limited to risk of infection, fluid accumulation in the surgical dissection site, including a sero ma or hematoma, that requires additional surgery, wound drainage, bleeding, new numbness or weakness, vision changes/loss, spinal fluid leakage, non-healing and/or infected incision, headaches, difficulty or inability to swallow, hoarseness, hemopneumothorax, pneumothorax, injury to nerves, spinal cord, blood vessels, lymphatics or other vital organs (i.e., bowel injury, injury to the great vessels); heterotopic bone formation; complications related to the hardware such as screws, rods, including misplaced hardware, device failure, hardware fracture/breakage, or hardware loosening; retained surgical instrumentations or devices and the need for further surgery. - Medical risks of the planned surgery include but are not limited to generalized Infections to the whole body or local areas outside of the surgical site (sepsis), heart attack, bleeding, anaphylaxis, meningitis, seizure, epilepsy, hearing loss, burn hussein, laceration of the head or other areas of the body, bruising, hypersensitivity of the skin, bladder over distension; allergic reaction; shoulder injury related to positioning; fat, blood and air clots to other areas of the body like heart, lungs, brain; failure of internal organs such as lungs, kidneys, liver and excessive bleeding. If blood transfusions are necessary, note that transfusions may cause intolerance reactions such as anaphylaxis or other complex reactions. Despite best efforts, the results of surgery might not heal in terms of bone, soft tissues such as skin, fascia, ligaments, and joints. [facility] has multiple operating rooms with single and overlapping rooms running daily. They currently function under the required guidelines as produced by the [employer] Committee with regards to the overlapping rooms and will continue to comply with changes to this policy as they occur. The requirements include and are complied with as follows: (1) the critical portions of the overlapping rooms will not occur at the same time, (2) the attending physician will be physically present during the critical portions of the procedure and immediately available during the entire case, and (3) a back-up attending is designated should the primary attending not be immediately available. The patient has had a chance to review all the listed information, has been given print outs detailing this information, and has had all his/her questions answered to their satisfaction. It was my pleasure to have seen and examined Florentino. In our visit today we have had a chance to go over my understanding of our patient's current condition, the natural course history without intervention and various interventional options. Questions were invited and answered, and the patient wishes to proceed as outlined above. I have seen and examined the patient for 25 minutes and we have spent more than 50% of the time in repeat and detailed counseling about the patient's condition, its natural course history with out and as much as can be predicted with surgery and re-review of various surgical treatment options. In conclusion, Florentino Houghrasolange requested we proceed with the above suggested surgery and are willing to accept risks and limitations of the suggested surgery as nature of the disease process and our best attempts at treatment for the condition. Thank you again for allowing us to be part of your patient's care. Please don't hesitate to contact me if you have any further questions. Signed and authenticated by: [facility] [address] [address]
[2023-09-01 07:40] LABS: Glucose,Whole Blood 96 mg/dL (70-110)
[2023-09-01] MEDS: fentaNYL (PF) 50 MCG/ML 2 ML AMP IVP ONE ×2 (08:59)
[2023-09-01] MEDS ORDERED: PROPOFOL 10 MG/ML 20 ML VIAL IV ONE (09:11)
[2023-09-01] MEDS ORDERED: DEXAMETHASONE SOD PHOSPHATE 4 MG/ML 1 ML VIAL ONE (09:11)
[2023-09-01] MEDS ORDERED: LIDOCAINE 1% INJ 10MG/ML (20 ML MDV) ONE (09:11)
[2023-09-01] MEDS ORDERED: MIDAZOLAM 2 MG/2 ML VIAL ONE (09:11)
[2023-09-01] MEDS ORDERED: ONDANSETRON 4 MG/2 ML VIAL ONE (09:11)
[2023-09-01] MEDS ORDERED: SUCCINYLCHOLINE CHLORIDE 200 MG/10 ML VIAL IV ONE (09:11)
[2023-09-01] MEDS ORDERED: PHENYLEPHRINE 10 MG/ML VIAL ONE (09:11)
[2023-09-01] MEDS ORDERED: fentaNYL (PF) 50 MCG/ML 2 ML AMP ONE (09:11)
[2023-09-01] MEDS: SODIUM CHLORIDE 0.9% 500 ML 500 ML IV ONE (09:15)
[2023-09-01] MEDS: ceFAZolin 1,000 MG in SODIUM CHLORIDE 0.9% 1,000 ML IRRIGATION ONE (09:36)
[2023-09-01] MEDS: BACITRACIN ZINC 500 UNIT/GM OINT 28.4 GM TUBE TOPICAL ONE (09:47)
--- NOTE | 2023-09-01 10:00 | P.OP ---
Date of Procedure: 09/01/23 Preoperative Diagnosis: 1. NAIL BED AND EPICYCLICAL FOLD ABSCESS WITH DORSAL RIF ABSCESS 2. [facility] Postoperative Diagnosis: 1. NAIL BED AND EPICYCLICAL FOLD ABSCESS WITH DORSAL RIF ABSCESS 2. [facility] Procedure(s) Performed: 1. RIF NAILBED ABSCESS EVACUATION WITH NAIL PLATE REMOVAL 2. I&D WITH EXCISIONAL DEBRIDEMENT RIF DORSAL ABSCESS AND NAILBED ABSCESS USING THE FOLLOWING: -FREER ELEVATOR USED TO REMOVE NAIL PLATE -RONGURE USED TO DEBRIDE NAILBED AND SOFT TISSUES -CURETTE USED TO DEBRIDE SOFT TISSUES -SKIN KNIFE USED TO REMOVE NECROTIC SKIN Implants: NONE Anesthesia: MAC Surgeon: Noah Li Ethanol Quality Leader #1: Maritza Adan (WAS PRESENT AND ASSISTED WITH ALL ASPECTS OF THE CASE FROM POSITION TO CLOSURE) Estimated Blood Loss (ml): 5 IV fluids (ml): 700 Urine output (ml): 0 Pathology: none sent Condition: stable Disposition: PACU Indications for Procedure: Florentino Chowdhury is a 57 yo male presenting for evaluation on onset of RIF blistering, purulent drainage and pain,with inability to bear weight. He has a hx of osteomyelitis of the middle finger on this side as well. He denies any trauma or issues with this finger before. It was my pleasure to have seen and examined Florentino. In our visit today we have had a chance to go over subjective complaints, physical examination findings and treatments including the natural course history without intervention and various interventional options. His imaging demonstrates No acute osseous findings . On physical exam, Florentino demonstrates pain with motion of RIF with blistering over the etensor surface with purulent drainage coming from the epicyclical fold, which is NV intact at this time. I have explained to the patient that this fracture needs stabilization. Based on the patients imaging, physical exam, and the rapid progression and disabling nature of her symptoms, at this time I recommend surgery in the form or a: I&D of the RIF I discussed the risk and benefits of this procedure at length with Florentino. Questions were invited and answered, and the patient wishes to proceed as outlined below. Currently, I am recommendin. Right index finger irrigation and debridement Description of Procedure: The patient was seen and examined in the preoperative area. All preoperative protocols were followed. Informed consent was obtained risks and benefits of the procedure were discussed at length. Risks including bleeding infection damage to the surrounding tissue and risk of reoperation were discussed with the patient. Risk of anesthesia up to and including was a discussed with the patient. These are outlined in the risk reviewed. They were willing to accept these risks and all of the risks of surgery. The patient was given a weight- based dose of antibiotics in the form of vancomycin from the floor. The patient was seen and evaluated by the anesthesia team who deemed them fit for surgery. The site was marked, the patient was willing to proceed with the procedure. The patient was transferred to the operative suite by the Department of anesthesia. There were then drifted off to sleep by the department of anesthesia and LMA anesthesia was used. Once adequate anesthesia had been obtained the patient was carefully transferred to the operative bed. All bony prominences were padded accordingly. SCDs were placed on the nonoperative lower extremities. Arms were well padded. Right upper extremity and hand were exposed and placed on arm board well-padded Preoperative briefing was done with the operative team and everyone was ready for the procedure to start. The patients right arm and hand was then prepped and draped in the normal sterile fashion. Timeout was then performed and all parties in agreement with the procedure to be performed. In the right index finger was inspected there was dorsal abscess that tracked all it back to the webspace over the DIP and PIP joints. This seemed to be stemming from the eponychial fold and the germinal matrix. The nail plate was then removed using a Ash elevator in an atraumatic fashion. This revealed a large amount of purulent material which was then cultured 2. The nailbed itself had purulent material which was formed on its and this was removed with Benito. We then inspected the germinal matrix which was still intact proximally but was starting to erode distally erosion portions were removed. The skin was then extremely necrotic and so was removed using a skin knife. This was partial thickness skin loss in this area and measured 3 cm x 2 cm. There is no volar surface involvement. We then irrigated the wound thoroughly with antibiotic irrigation. We then fashioned a temporary nail plate in place and the germinal matrix bacitracin was placed over the wound followed by Adaptic 4 x 4's Kerlix and an Lucio wrap. The patient was then transferred back to their hospital bed. There were awakened by department of anesthesia having tolerated the procedure very well with no complications. The patient was then transported to the postoperative care unit in stable condition.
[2023-09-01] MEDS: HYDROmorphone 0.5 MG/0.5 ML SYRINGE IVP ONE ×3 (10:11→10:34)
[2023-09-01 10:28] LABS: Glucose,Whole Blood 95 mg/dL (70-110)
[2023-09-01] MEDS: LACTATED RINGERS 1,000 ML IV SCH (11:34)
[2023-09-01 11:45] LABS: Basophils # (A) 0.1 k/uL (0-0.2); Basophils % (A) 0 %; Eosinophils # (A) 0.3 k/uL (0-0.7); Eosinophils % (A) 2 %; HCT 41.2 % (39.0-53.0); HGB 13.3 gm/dL (13.0-17.5); Lymphocytes # (A) 0.9 k/uL (1.0-4.8); Lymphocytes % (A) 6 %; MCH 27.9 pg (25.0-35.0); MCHC 32.3 g/dL (31.0-37.0); MCV 86.1 fL (80.0-100.0); Monocytes # (A) 0.4 k/uL (0-1.0); Monocytes % (A) 2 %; Neutrophils # (A) 13.7 k/uL (1.3-7.7); Neutrophils % (A) 89 %; Platelet Count 241 k/uL (150-450); RBC 4.78 m/uL (4.30-5.90); RDW 14.1 % (11.5-15.5); WBC 15.3 k/uL (3.8-10.6)
[2023-09-01 12:08] LABS: Glucose,Whole Blood 123 mg/dL (70-110)
--- NOTE | 2023-09-01 15:31 | P.PN ---
Subjective Progress Note Date: 09/01/23 Principal diagnosis: Reason for follow-up is right index finger abscess Patient is a 57-year-old male past medical history significant for diabetes mellitus reflux hypertension hyperlipidemia COPD patient presenting to the hospital for evaluation of right index finger pain and swelling, patient be diagnosed with extensive abscess of the right index finger in this patient was status post drainage of the abscess by orthopedic surgeon on 09/01/2023. On today's evaluation that is 09/01/2023, the patient continues to be afebrile, the patient is on 2 L nasal cannula oxygen and breathing comfortably, the Pt denies having any chest pain or cough, the patient denies having any abdominal pain no vomiting or any diarrhea, pain to the right index finger is currently controlled with the pain medication. Patient white count is 15.93 creatinine 0.83 cultures are pending Objective - Vital Signs Vital signs: Vital Signs Temp 97.9 F 09/01/23 12:10 Pulse 77 09/01/23 12:10 Resp 18 09/01/23 12:10 BP 121/78 09/01/23 12:10 Pulse Ox 94 L 09/01/23 12:10 FiO2 Intake & Output 08/31/23 09/01/23 09/01/23 18:59 06:59 18:59 Intake Total 351 Output Total 525 5 Balance -525 346 Intake: IV 351 Output: Urine 525 Estimated Blood Loss 5 Other: # Voids 3 2 - Exam GENERAL DESCRIPTION: Management of hematuria in no distress RESPIRATORY SYSTEM: Unlabored breathing , decreased breath sounds at bases HEART: S1 S2 regular rate and rhythm , ABDOMEN: Soft , no tenderness EXTREMITIES: Right hand has dressing in the OR dressing - Labs CBC & Chem 7: 09/01/23 11:32 09/01/23 04:11 Labs: Abnormal Lab Results - Last 24 Hours (Table) 08/31/23 09/01/23 09/01/23 Range/Units 20:25 04:11 11:32 WBC 15.3 H (3.8-10.6) k/uL Neutrophils # 13.7 H (1.3-7.7) k/uL Lymphocytes # 0.9 L (1.0-4.8) k/uL Glucose 101 H (74-99) mg/dL POC Glucose (mg/dL) 116 H (70-110) mg/dL 09/01/23 Range/Units 12:06 WBC (3.8-10.6) k/uL Neutrophils # (1.3-7.7) k/uL Lymphocytes # (1.0-4.8) k/uL Glucose (74-99) mg/dL POC Glucose (mg/dL) 123 H (70-110) mg/dL Microbiology - Last 24 Hours (Table) 08/30/23 15:30 Blood Culture - Preliminary Blood 08/30/23 15:45 Blood Culture - Preliminary Blood Assessment and Plan (1) Abscess of right index finger Current Visit: Yes Status: Acute Code(s): L02.511 - CUTANEOUS ABSCESS OF RIGHT HAND SNOMED Code(s): 06892633609676719 (2) Cellulitis of finger of right hand Current Visit: Yes Status: Acute Code(s): L03.011 - CELLULITIS OF RIGHT FINGER SNOMED Code(s): 70421241 Plan: 1patient with extensive right index finger abscess and cellulitis likely from gram-positive skin velvet underlying gram-negative infection less likely but not excluded 2-patient has been evaluated by orthopedics and status post drainage of the abscess and culture completed on 09/01/2023 which are currently pending 3-patient to continue with vancomycin and Unasyn while waiting for the culture to finalize Dictation was produced using [employer] dictation software. please excuse any grammatical, word or spelling errors. Time with Patient: Less than 30
--- NOTE | 2023-09-01 16:19 | P.PN ---
Subjective Progress Note Date: 09/01/23 57-year-old male, history of hypertension, hyperlipidemia, diabetes mellitus, COPD, presents emergency department chief complaint of right finger pain and swelling. Patient states that 4 days ago he noticed that his right second digit was erythematous and swollen, most predominantly at the distal end of the metacarpal. States that yesterday went to his primary care provider where they gave him a shot of an antibiotic in office and sent him home on an antibiotic, which she does not remember the name of. Denies any trauma to the affected finger. Patient denies any nausea, vomiting, dizziness, lightheadedness, fevers. Denies a history of gout. Blood work completed in ED reveals WBC of 11.4, hemoglobin of 12.4 and platelet count of 213, sodium 136, potassium of 4.1, BUNs/creatinine of 24/0.96 X-ray of right hand reveals soft tissue swelling throughout the hand particularly second and third digit with no evidence of radiopaque foreign bodies 09/01/2023 the patient is seen and evaluated in room at bedside; continues to be afebrile, the patient is on 2 L nasal cannula oxygen and breathing comfortably, the Pt denies having any chest pain or cough, the patient denies having any abdominal pain no vomiting or any diarrhea, pain to the right index finger is currently controlled with the pain medication. Patient white count is 15.93 creatinine 0.83 cultures are pending Vital signs reveal temperature 97.9, pulse 77, respiration 18 and blood pressure 121/78 patient with extensive right index finger abscess and cellulitis likely from gram-positive skin velvet underlying gram-negative infection less likely but not excluded -patient has been evaluated by orthopedics and status post drainage of the abscess and culture completed on 09/01/2023 which are currently pending -patient to continue with vancomycin and Unasyn while waiting for the culture to finalize Objective - Vital Signs Vital signs: Vital Signs Temp 97.2 F L 09/01/23 09:59 Pulse 84 09/01/23 10:45 Resp 16 09/01/23 10:45 BP 141/77 09/01/23 10:45 Pulse Ox 100 09/01/23 10:45 FiO2 Intake & Output 08/31/23 09/01/23 09/01/23 18:59 06:59 18:59 Intake Total 351 Output Total 525 5 Balance -525 346 Intake: IV 351 Output: Urine 525 Estimated Blood Loss 5 Other: # Voids 3 2 - Exam Head exam: Present: atraumatic, normocephalic, normal inspection Eye exam: Present: normal appearance, PERRL, EOMI. Absent: scleral icterus, conjunctival injection, periorbital swelling Neck exam: Present: normal inspection. Absent: tenderness, meningismus, lymphadenopathy Respiratory exam: Present: normal lung sounds bilaterally. Absent: respiratory distress, wheezes, rales, rhonchi, stridor Cardiovascular Exam: Present: regular rate, normal rhythm, normal heart sounds. Absent: systolic murmur, diastolic murmur, rubs, gallop, clicks GI/Abdominal exam: Present: soft, normal bowel sounds. Absent: distended, tenderness, guarding, rebound, rigid Right Hand Wrist exam: Present: tenderness, swelling, erythema, other (erythematous second digit with edema and erythematous border extending proximally on the right hand). Absent: full ROM, laceration (no obvious signs of laceration or ulceration) Neuro motor exam: Present: wrist extension intact, thumb opposition intact, fingers 2-5 abduction intact Neurological exam: Present: alert, oriented X3, CN II-XII intact - Labs CBC & Chem 7: 09/01/23 11:32 09/01/23 04:11 Labs: Abnormal Lab Results - Last 24 Hours (Table) 08/31/23 08/31/23 09/01/23 Range/Units 05:27 20:25 04:11 Glucose 101 H (74-99) mg/dL POC Glucose (mg/dL) 116 H (70-110) mg/dL Hemoglobin A1c 6.1 H (<=6.0) % Microbiology - Last 24 Hours (Table) 08/30/23 15:45 Blood Culture - Preliminary Blood Assessment and Plan Assessment: 1. Severe cellulitis right index finger --Patient has been placed on IV antibiotics in form of Unasyn; will monitor CBC, CRP and procalcitonin -- Patient recommended to keep right hand elevated -- Patient has been evaluated by orthopedic surgery and will be made n.p.o. after midnight tonight for incision and drainage -- ID is consulted for recommendations on antibiotic therapy 2. Uncontrolled pain; morphine 4 mg IV every 4 hours as needed 3. Hypertension; losartan 100 mg daily; hydrochlorothiazide 25 mg daily 4. Hyperlipidemia; Lipitor 40 mg daily; fenofibrate 160 mg daily 5. Diabetes mellitus type 2; continue home dose of metformin 1000 mg twice daily and monitor Accu-Cheks before every meal and at bedtime with insulin sliding scale 6. Neuropathy; patient is currently on Lyrica 200 mg twice daily 7. Anxiety/depression; Celexa 20 mg daily; Valium 10 mg twice daily DVT prophylaxis; SCDs only given planned surgical procedure CODE STATUS; full code
[2023-09-01 17:40] LABS: Glucose,Whole Blood 129 mg/dL (70-110)
[2023-09-01] MEDS: HYDROcodone/APAP 5-325MG 1 EACH TAB PO PRN (17:58)
[2023-09-01 20:00] LABS: Glucose,Whole Blood 149 mg/dL (70-110)
[2023-09-02 06:43] LABS: African American GFR (CKD) >90 (>60 ml/min/1.73 sqM); Non-African American GFR(CKD) >90 (>60 ml/min/1.73 sqM)
[2023-09-02 06:57] LABS: Glucose,Whole Blood 170 mg/dL (70-110)
[2023-09-02] MEDS ORDERED: HYDROmorphone 0.5 MG/0.5 ML SYRINGE IVP PRN (07:00)
[2023-09-02 08:39] LABS: Basophils # (A) 0.04 X 10*3/uL (0.00-0.10); Basophils % (A) 0.4 %; Eosinophils # (A) 0.18 X 10*3/uL (0.04-0.35); Eosinophils % (A) 1.7 %; HCT 38.9 % (39.6-50.0); HGB 12.5 g/dL (13.0-17.0); Lymphocytes # (A) 1.85 X 10*3/uL (0.90-5.00); Lymphocytes % (A) 17.7 %; MCH 26.9 pg (27.0-32.0); MCHC 32.1 g/dL (32.0-37.0); MCV 83.7 FL (80.0-97.0); Mean Platelet Volume 11.5 FL (9.5-12.2); Monocytes # (A) 0.85 X 10*3/uL (0.20-1.00); Monocytes % (A) 8.1 %; NRBC Per 100 WBC 0 X 10*3/uL (0.00-0.01); Neutrophils # (A) 7.51 X 10*3/uL (1.80-7.70); Neutrophils % (A) 71.8 %; Platelet Count 282 X 10*3/uL (140-440); RBC 4.65 X 10*6/uL (4.40-5.60); RDW 14.3 % (11.5-14.5); WBC 10.46 X 10*3/uL (4.50-10.00)
[2023-09-02 11:50] LABS: Glucose,Whole Blood 115 mg/dL (70-110)
--- NOTE | 2023-09-02 13:16 | P.PN ---
Subjective Progress Note Date: 09/02/23 Principal diagnosis: Right index finger cellulitis Patient seen and examined this morning. Patient is resting comfortably in bed. Surgical dressing to the right hand is CDI. Patient reports his pain is managed on current regimen. Informed patient that he is to begin hibiclen soaks for 20m TID. Patient verbalized understanding. Patient has been afebrile and denies any nausea/vomiting. Objective - Vital Signs Vital signs: Vital Signs Temp 97.8 F 09/02/23 06:58 Pulse 78 09/02/23 06:58 Resp 16 09/02/23 06:58 BP 119/76 09/02/23 06:58 Pulse Ox 98 09/02/23 06:58 FiO2 Intake & Output 09/01/23 09/02/23 09/02/23 18:59 06:59 18:59 Intake Total 351 240 Output Total 5 Balance 346 240 Intake: IV 351 Oral 240 Output: Estimated Blood Loss 5 Other: Voiding Method Toilet # Voids 1 - Exam RIGHT HAND Inspection: Negative for any open fractures. Right index finger wound, partial thickness loss 4cm x2cm x0.5cm extending to the web surface. Sensation: Sensation is intact. Palpation: Moderate tenderness to the right dorsal index finger. No flexor tenderness noted. Range of motion: Patient does have right hand and wrist extension intact, thumb opposition intact, fingers 2-5 abduction intact Neurovascular: Radial pulse intact, 2+ bilaterally. Cap refill under 3 seconds in digits upper extremities. - Labs CBC & Chem 7: 09/02/23 05:50 09/02/23 05:50 Labs: Abnormal Lab Results - Last 24 Hours (Table) 09/01/23 09/01/23 09/01/23 Range/Units 11:32 12:06 17:37 WBC 15.3 H (3.8-10.6) k/uL Hgb (13.0-17.0) g/dL Hct (39.6-50.0) % MCH (27.0-32.0) pg Neutrophils # 13.7 H (1.3-7.7) k/uL Lymphocytes # 0.9 L (1.0-4.8) k/uL POC Glucose (mg/dL) 123 H 129 H (70-110) mg/dL 09/01/23 09/02/23 09/02/23 Range/Units 19:56 05:50 06:55 WBC 10.46 H (3.8-10.6) k/uL Hgb 12.5 L (13.0-17.0) g/dL Hct 38.9 L (39.6-50.0) % MCH 26.9 L (27.0-32.0) pg Neutrophils # (1.3-7.7) k/uL Lymphocytes # (1.0-4.8) k/uL POC Glucose (mg/dL) 149 H 170 H (70-110) mg/dL Microbiology - Last 24 Hours (Table) 08/30/23 15:45 Blood Culture - Preliminary Blood 08/30/23 15:30 Blood Culture - Preliminary Blood Assessment and Plan Assessment: Post op Day 1: s/p right index finger nailbed abscess evacuation with nail plate removal and irrigation and debridement with excisional debridement of right index finger dorsal abscess and nailbed abscess. 1. Right index finger cellulitis Plan: 2. Appreciate medical management 3. Pain management - Tylenol ordered, continue to elevate right hand on pillow. 4. Hygiene: Initiate Hibiclen soaks for 20m TID. Maintain dressing clean and dry. 4. GI prophylaxis - per medicine 5. DVT prophylaxis - per medicine 6. PT/OT - weightbearing as tolerated 7. Appreciate consult
[2023-09-02 17:36] LABS: Glucose,Whole Blood 161 mg/dL (70-110)
[2023-09-02 20:00] LABS: Glucose,Whole Blood 137 mg/dL (70-110)
--- NOTE | 2023-09-02 22:26 | P.PN ---
Subjective Progress Note Date: 09/02/23 Principal diagnosis: Reason for follow-up is right index finger abscess Patient is a 57-year-old male past medical history significant for diabetes mellitus reflux hypertension hyperlipidemia COPD patient presenting to the hospital for evaluation of right index finger pain and swelling, patient be diagnosed with extensive abscess of the right index finger in this patient was status post drainage of the abscess by orthopedic surgeon on 09/01/2023. On today's evaluation that is 09/02/2023, Patient is afebrile patient is currently on room air and denies having any shortness of breath, the patient denies any chest pain or cough, the patient denies any nausea vomiting did not have any abdominal pain and no diarrhea still complaining of significant pain to the right index finger especially with the dressing changes. Patient white count is 10.46 creatinine 0.83 cultures with presumptive MRSA Objective - Vital Signs Vital signs: Vital Signs Temp 97.8 F 09/02/23 06:58 Pulse 78 09/02/23 06:58 Resp 16 09/02/23 06:58 BP 119/76 09/02/23 06:58 Pulse Ox 98 09/02/23 06:58 FiO2 Intake & Output 09/01/23 09/02/23 09/02/23 18:59 06:59 18:59 Intake Total 351 240 Output Total 5 Balance 346 240 Intake: IV 351 Oral 240 Output: Estimated Blood Loss 5 Other: Voiding Method Toilet # Voids 1 - Exam GENERAL DESCRIPTION: Management of hematuria in no distress RESPIRATORY SYSTEM: Unlabored breathing , decreased breath sounds at bases HEART: S1 S2 regular rate and rhythm , ABDOMEN: Soft , no tenderness EXTREMITIES: Right index finger with extensive wound no slough tissue or foul- smelling drainage - Labs CBC & Chem 7: 09/02/23 05:50 09/02/23 05:50 Labs: Abnormal Lab Results - Last 24 Hours (Table) 09/01/23 09/01/23 09/01/23 Range/Units 11:32 12:06 17:37 WBC 15.3 H (3.8-10.6) k/uL Hgb (13.0-17.0) g/dL Hct (39.6-50.0) % MCH (27.0-32.0) pg Neutrophils # 13.7 H (1.3-7.7) k/uL Lymphocytes # 0.9 L (1.0-4.8) k/uL POC Glucose (mg/dL) 123 H 129 H (70-110) mg/dL 09/01/23 09/02/23 09/02/23 Range/Units 19:56 05:50 06:55 WBC 10.46 H (3.8-10.6) k/uL Hgb 12.5 L (13.0-17.0) g/dL Hct 38.9 L (39.6-50.0) % MCH 26.9 L (27.0-32.0) pg Neutrophils # (1.3-7.7) k/uL Lymphocytes # (1.0-4.8) k/uL POC Glucose (mg/dL) 149 H 170 H (70-110) mg/dL Microbiology - Last 24 Hours (Table) 09/01/23 09:49 Gram Stain - Preliminary Finger - Right Second 09/01/23 09:49 Gram Stain - Preliminary Finger - Right Second 09/01/23 09:49 Gram Stain - Preliminary Finger - Right Second 08/30/23 15:45 Blood Culture - Preliminary Blood 08/30/23 15:30 Blood Culture - Preliminary Blood Assessment and Plan (1) Abscess of right index finger Current Visit: Yes Status: Acute Code(s): L02.511 - CUTANEOUS ABSCESS OF RIGHT HAND SNOMED Code(s): 48939294588628316 (2) Cellulitis of finger of right hand Current Visit: Yes Status: Acute Code(s): L03.011 - CELLULITIS OF RIGHT FINGER SNOMED Code(s): 18423885 Plan: 1patient with extensive right index finger abscess and cellulitis likely from gram-positive skin velvet underlying gram-negative infection less likely but not excluded 2-patient has been evaluated by orthopedics and status post drainage of the abscess and culture completed on 09/01/2023 which are currently growing presumptive MRSA 3-patient to continue with vancomycin however will discontinue Unasyn keeping in mind extensive infection may benefit from outpatient IV antibiotic therapy Dictation was produced using [employer] dictation software. please excuse any gra mmatical, word or spelling errors. Time with Patient: Less than 30
--- NOTE | 2023-09-03 05:14 | P.PN ---
Subjective Progress Note Date: 09/02/23 57-year-old male, history of hypertension, hyperlipidemia, diabetes mellitus, COPD, presents emergency department chief complaint of right finger pain and swelling. Patient states that 4 days ago he noticed that his right second digit was erythematous and swollen, most predominantly at the distal end of the metacarpal. States that yesterday went to his primary care provider where they gave him a shot of an antibiotic in office and sent him home on an antibiotic, which she does not remember the name of. Denies any trauma to the affected finger. Patient denies any nausea, vomiting, dizziness, lightheadedness, fevers. Denies a history of gout. Blood work completed in ED reveals WBC of 11.4, hemoglobin of 12.4 and platelet count of 213, sodium 136, potassium of 4.1, BUNs/creatinine of 24/0.96 X-ray of right hand reveals soft tissue swelling throughout the hand particularly second and third digit with no evidence of radiopaque foreign bodies 09/01/2023 the patient is seen and evaluated in room at bedside; continues to be afebrile, the patient is on 2 L nasal cannula oxygen and breathing comfortably, the Pt denies having any chest pain or cough, the patient denies having any abdominal pain no vomiting or any diarrhea, pain to the right index finger is currently controlled with the pain medication. Patient white count is 15.93 creatinine 0.83 cultures are pending Vital signs reveal temperature 97.9, pulse 77, respiration 18 and blood pressure 121/78 patient with extensive right index finger abscess and cellulitis likely from gram-positive skin velvet underlying gram-negative infection less likely but not excluded -patient has been evaluated by orthopedics and status post drainage of the abscess and culture completed on 09/01/2023 which are currently pending -patient to continue with vancomycin and Unasyn while waiting for the culture to finalize 09/02/2023 Patient is seen and evaluated in follow-up today with infectious disease and orthopedics following. Patient is status post surgical debridement on the right index finger of the abscess along with the fingernail abscess. Patient is continued on antibiotics and preliminary culture showing presumptive MRSA. Awaiting finalized culture to determine discharge antibiotics. Patient may need IV antibiotics on discharge and case management is following working on discharge planning including verifying insurance coverage. Patient was instructed to continue with [facility] orthopedics and will continue with local wound care per ID recommendations. Patient continues to report pain and dis cussed with the patient about limiting IV pain medications and will adjust oral medications accordingly. Patient is afebrile and white count at 10 today with no reported chest pain or shortness of breath. Patient plans on returning home with possible need for home care in the outpatient setting. Review of systems: Constitutional: No reports of fatigue, fever, or chills Cardiovascular: No reports of chest pain or palpitations Respiratory: No reports of shortness of breath or cough GI: No reports of nausea, vomiting, or diarrhea : No reports of dysuria or retention Neurovascular: No reports of weakness or numbness, reports continued right hand pain of the right index finger All medications have been reviewed Physical exam: Gen: This is a 57-year-old male who is awake, alert and oriented x 3, well- developed, well-nourished, elderly appearing HEENT: Head is atraumatic, normocephalic. Pupils equal, round. Sclerae is anicteric. NECK: Supple. No JVD. No lymphadenopathy. No thyromegaly. LUNGS: Clear to auscultation. No wheezes, some scattered rhonchi. No intercostal retractions. HEART: Regular rate and rhythm. No murmur. ABDOMEN: Soft. Bowel sounds are present. No masses. No tenderness. EXTREMITIES: No pedal edema. No calf tenderness. Right hand index finger recently debrided currently being soaked in Hibiclens with no obvious drainage noted NEUROLOGICAL: Patient is awake, alert and oriented x3. Cranial nerves 2 through 12 are grossly intact. Assessment: -Severe cellulitis right index finger, status post incision and debridement of the nail abscess and finger abscess, preliminary culture showing presumptive MRSA -Uncontrolled pain, secondary to severe cellulitis. -Hypertension -Hyperlipidemia -Diabetes mellitus type 2, [id number] uncontrolled with hyperglycemia -Neuropathy -Anxiety/depression -GI prophylaxis -DVT prophylaxis; SCDs -full code Plan: Patient is continued on antibiotics in the form of vancomycin and Unasyn with ID following and will continue. Preliminary culture showing presumptive MRSA and vancomycin be discontinued. Patient may benefit from outpatient antibiotics and will discuss case management/social work regarding verifying coverage. Patient has been instructed by orthopedics to continue with Hibiclens soaks and will continue local wound care per infectious disease recommendations Continue with pain management and will adjust medications if patient continues to report significant pain requiring IV pain medications Will follow-up on repeat labs Continue monitoring Accu-Cheks before meals and at bedtime and will continue with current regimen with sliding scale Due to complex medical issues, prognosis is guarded Possible discharge in the next 24 to 48 hours The impression and plan of care has been dictated by Sheree Quiles, Nurse Practitioner as directed. Dr. Ata MD I have performed a history and examination and MDM of this patient, discussed the same with the dictator, and agree with the dictator's assessment and plan as written ,documented as a scribe. Based on total visit time, I have performed more than 50% of the visit. Objective - Vital Signs Vital signs: Vital Signs Temp 97.8 F 09/02/23 06:58 Pulse 78 09/02/23 06:58 Resp 16 09/02/23 06:58 BP 119/76 09/02/23 06:58 Pulse Ox 98 09/02/23 06:58 FiO2 Intake & Output 09/01/23 09/02/23 09/02/23 18:59 06:59 18:59 Intake Total 351 240 Output Total 5 Balance 346 240 Intake: IV 351 Oral 240 Output: Estimated Blood Loss 5 Other: Voiding Method Toilet # Voids 1 - Labs CBC & Chem 7: 09/02/23 05:50 09/02/23 05:50 Labs: Abnormal Lab Results - Last 24 Hours (Table) 09/01/23 09/01/23 09/02/23 Range/Units 17:37 19:56 05:50 WBC 10.46 H (4.50-10.00) X 10*3/uL Hgb 12.5 L (13.0-17.0) g/dL Hct 38.9 L (39.6-50.0) % MCH 26.9 L (27.0-32.0) pg POC Glucose (mg/dL) 129 H 149 H (70-110) mg/dL 09/02/23 09/02/23 Range/Units 06:55 11:49 WBC (4.50-10.00) X 10*3/uL Hgb (13.0-17.0) g/dL Hct (39.6-50.0) % MCH (27.0-32.0) pg POC Glucose (mg/dL) 170 H 115 H (70-110) mg/dL Microbiology - Last 24 Hours (Table) 08/30/23 15:30 Blood Culture - Preliminary Blood 09/01/23 09:49 Gram Stain - Preliminary Finger - Right Second 09/01/23 09:49 Gram Stain - Preliminary Finger - Right Second 09/01/23 09:49 Gram Stain - Preliminary Finger - Right Second 08/30/23 15:45 Blood Culture - Preliminary Blood
[2023-09-03 07:04] LABS: Glucose,Whole Blood 98 mg/dL (70-110)
[2023-09-03] MEDS: VANCOMYCIN TROUGH DUE 1 EACH MISC MISCELLANE ONE (07:32)
[2023-09-03 07:49] LABS: African American GFR (CKD) >90 (>60 ml/min/1.73 sqM); Anion Gap 7 mmol/L; Blood Urea Nitrogen 14 mg/dL (9-20); Calcium 9.2 mg/dL (8.4-10.2); Carbon Dioxide 29 mmol/L (22-30); Chloride 104 mmol/L (98-107); Glucose 104 mg/dL (74-99); Non-African American GFR(CKD) >90 (>60 ml/min/1.73 sqM); Sodium 140 mmol/L (137-145)
--- NOTE | 2023-09-03 08:54 | P.PN ---
Subjective Progress Note Date: 09/03/23 Principal diagnosis: Right index finger cellulitis Patient seen this morning. Patient is resting comfortably in bed. Surgical dressing to the right hand is CDI. No acute events overnight. Patient has been afebrile and no complaints of nausea/vomiting. Objective - Vital Signs Vital signs: Vital Signs Temp 98.2 F 09/03/23 07:05 Pulse 78 09/03/23 07:05 Resp 20 09/03/23 07:05 BP 144/77 09/03/23 07:05 Pulse Ox 96 09/03/23 07:05 FiO2 Intake & Output 09/02/23 09/03/23 09/03/23 18:59 06:59 18:59 Intake Total 3240 800 Balance 3240 800 Intake: Oral 3240 800 Other: Voiding Method Toilet # Voids 3 - Exam RIGHT HAND Inspection: Negative for any open fractures. Right index finger wound, partial thickness loss 4cm x2cm x0.5cm extending to the web surface. Dressing is CDI. Sensation: Sensation is intact. Palpation: Moderate tenderness to the right dorsal index finger. No flexor ten derness noted. Range of motion: Patient does have right hand and wrist extension intact, thumb opposition intact, fingers 2-5 abduction intact Neurovascular: Radial pulse intact, 2+ bilaterally. Cap refill under 3 seconds in digits upper extremities. - Labs CBC & Chem 7: 09/02/23 05:50 09/03/23 07:07 Labs: Abnormal Lab Results - Last 24 Hours (Table) 09/02/23 09/02/23 09/02/23 Range/Units 11:49 17:34 19:57 Glucose (74-99) mg/dL POC Glucose (mg/dL) 115 H 161 H 137 H (70-110) mg/dL 09/03/23 Range/Units 07:07 Glucose 104 H (74-99) mg/dL POC Glucose (mg/dL) (70-110) mg/dL Microbiology - Last 24 Hours (Table) 09/01/23 09:49 Gram Stain - Preliminary Finger - Right Second Wound Culture - Preliminary Gram Neg Bacilli Presumptive MRSA 09/01/23 09:49 Gram Stain - Preliminary Finger - Right Second Wound Culture - Preliminary Gram Neg Bacilli Presumptive MRSA 09/01/23 09:49 Gram Stain - Preliminary Finger - Right Second Tissue Culture - Preliminary Presumptive MRSA 08/30/23 15:45 Blood Culture - Preliminary Blood 08/30/23 15:30 Blood Culture - Preliminary Blood Assessment and Plan Assessment: Post op Day 2: s/p right index finger nailbed abscess evacuation with nail plate removal and irrigation and debridement with excisional debridement of right index finger dorsal abscess and nailbed abscess. 1. Right index finger cellulitis Plan: 2. Appreciate medical management 3. Pain management - Tylenol, [place], IV Morphine, continue to elevate right hand on pillow. 4. Hygiene: Maintain dressing clean and dry. 4. GI prophylaxis - per medicine 5. DVT prophylaxis - per medicine 6. PT/OT - weightbearing as tolerated 7. Appreciate consult
[2023-09-03] MEDS: HYDROcodone/APAP 7.5-325MG 1 EACH TAB PO PRN (08:59)
[2023-09-03 11:20] LABS: Basophils # (A) 0.09 X 10*3/uL (0.00-0.10); Eosinophils # (A) 0.44 X 10*3/uL (0.04-0.35); Eosinophils % (A) 4.9 %; HGB 12.7 g/dL (13.0-17.0); Lymphocytes # (A) 1.86 X 10*3/uL (0.90-5.00); Lymphocytes % (A) 20.9 %; MCH 26.8 pg (27.0-32.0); MCHC 31.8 g/dL (32.0-37.0); MCV 84.6 FL (80.0-97.0); Mean Platelet Volume 11.5 FL (9.5-12.2); Monocytes # (A) 0.72 X 10*3/uL (0.20-1.00); Monocytes % (A) 8.1 %; NRBC Per 100 WBC 0 X 10*3/uL (0.00-0.01); Neutrophils # (A) 5.75 X 10*3/uL (1.80-7.70); Neutrophils % (A) 64.7 %; Platelet Count 299 X 10*3/uL (140-440); RBC 4.73 X 10*6/uL (4.40-5.60); RDW 14.5 % (11.5-14.5)
[2023-09-03 11:41] LABS: Glucose,Whole Blood 143 mg/dL (70-110)
--- NOTE | 2023-09-03 14:23 | P.PN ---
Subjective Progress Note Date: 09/03/23 Principal diagnosis: Reason for follow-up is right index finger abscess Patient is a 57-year-old male past medical history significant for diabetes mellitus reflux hypertension hyperlipidemia COPD patient presenting to the hospital for evaluation of right index finger pain and swelling, patient be diagnosed with extensive abscess of the right index finger in this patient was status post drainage of the abscess by orthopedic surgeon on 09/01/2023. On today's evaluation that is 09/03/2023, patient has been afebrile, patient is breathing comfortably and is currently on room air, patient denies having any significant cough no chest pain shortness of breath, patient denies nausea vomiting or diarrhea and no abdominal pain, pain to the right in the finger currently controlled. Patient white count normalized to 8.90, creatinine 0.89 culture growing gram- negative and MRSA Objective - Vital Signs Vital signs: Vital Signs Temp 97.7 F 09/03/23 12:48 Pulse 69 09/03/23 12:48 Resp 20 09/03/23 12:48 BP 121/77 09/03/23 12:48 Pulse Ox 98 09/03/23 12:48 FiO2 Intake & Output 09/02/23 09/03/23 09/03/23 18:59 06:59 18:59 Intake Total 3240 800 Balance 3240 800 Intake: Oral 3240 800 Other: Voiding Method Toilet # Voids 3 - Exam GENERAL DESCRIPTION: Management of hematuria in no distress RESPIRATORY SYSTEM: Unlabored breathing , decreased breath sounds at bases HEART: S1 S2 regular rate and rhythm , ABDOMEN: Soft , no tenderness EXTREMITIES: Right index finger currently dressed no drainage on the dressing - Labs CBC & Chem 7: 09/03/23 07:07 09/03/23 07:07 Labs: Abnormal Lab Results - Last 24 Hours (Table) 09/02/23 09/02/23 09/03/23 Range/Units 17:34 19:57 07:07 Hgb (13.0-17.0) g/dL MCH (27.0-32.0) pg MCHC (32.0-37.0) g/dL Eosinophils # (0.04-0.35) X 10*3/uL Glucose 104 H (74-99) mg/dL POC Glucose (mg/dL) 161 H 137 H (70-110) mg/dL 09/03/23 09/03/23 Range/Units 07:07 11:39 Hgb 12.7 L (13.0-17.0) g/dL MCH 26.8 L (27.0-32.0) pg MCHC 31.8 L (32.0-37.0) g/dL Eosinophils # 0.44 H (0.04-0.35) X 10*3/uL Glucose (74-99) mg/dL POC Glucose (mg/dL) 143 H (70-110) mg/dL Microbiology - Last 24 Hours (Table) 08/30/23 15:30 Blood Culture - Preliminary Blood 09/01/23 09:49 Gram Stain - Preliminary Finger - Right Second Wound Culture - Preliminary Gram Neg Bacilli Presumptive MRSA 09/01/23 09:49 Gram Stain - Preliminary Finger - Right Second Wound Culture - Preliminary Gram Neg Bacilli Presumptive MRSA 09/01/23 09:49 Gram Stain - Preliminary Finger - Right Second Tissue Culture - Preliminary Presumptive MRSA 08/30/23 15:45 Blood Culture - Preliminary Blood Assessment and Plan (1) Abscess of right index finger Current Visit: Yes Status: Acute Code(s): L02.511 - CUTANEOUS ABSCESS OF RIGHT HAND SNOMED Code(s): 82880568782307178 (2) Cellulitis of finger of right hand Current Visit: Yes Status: Acute Code(s): L03.011 - CELLULITIS OF RIGHT FINGER SNOMED Code(s): 18657612 Plan: 1patient with extensive right index finger abscess and cellulitis likely from gram-positive skin velvet underlying gram-negative infection less likely but not excluded 2-patient has been evaluated by orthopedics and status post drainage of the abscess and culture completed on 09/01/2023 which are currently growing presumptive MRSA along with gram-negative 3-patient to continue with vancomycin and start cefepime to cover for the gram- negative while waiting for sensitivity may benefit from IV biotic on discharge because of extensive infection Dictation was produced using [employer] dictation software. please excuse any grammatical, word or spelling errors. Time with Patient: Less than 30
[2023-09-03] MEDS: VANCOMYCIN 1,250 MG in SODIUM CHLORIDE 0.9% 250 ML IVPB SCH (16:40)
[2023-09-03] MEDS: CEFEPIME 2 GM in SODIUM CHLORIDE 0.9% 100 ML IVPB SCH (16:41)
[2023-09-03 17:44] LABS: Glucose,Whole Blood 173 mg/dL (70-110)
[2023-09-03 20:30] LABS: Glucose,Whole Blood 86 mg/dL (70-110)
--- NOTE | 2023-09-04 06:13 | P.PN ---
Subjective Progress Note Date: 09/03/23 57-year-old male, history of hypertension, hyperlipidemia, diabetes mellitus, COPD, presents emergency department chief complaint of right finger pain and swelling. Patient states that 4 days ago he noticed that his right second digit was erythematous and swollen, most predominantly at the distal end of the metacarpal. States that yesterday went to his primary care provider where they gave him a shot of an antibiotic in office and sent him home on an antibiotic, which she does not remember the name of. Denies any trauma to the affected finger. Patient denies any nausea, vomiting, dizziness, lightheadedness, fevers. Denies a history of gout. Blood work completed in ED reveals WBC of 11.4, hemoglobin of 12.4 and platelet count of 213, sodium 136, potassium of 4.1, BUNs/creatinine of 24/0.96 X-ray of right hand reveals soft tissue swelling throughout the hand particularly second and third digit with no evidence of radiopaque foreign bodies 09/01/2023 the patient is seen and evaluated in room at bedside; continues to be afebrile, the patient is on 2 L nasal cannula oxygen and breathing comfortably, the Pt denies having any chest pain or cough, the patient denies having any abdominal pain no vomiting or any diarrhea, pain to the right index finger is currently controlled with the pain medication. Patient white count is 15.93 creatinine 0.83 cultures are pending Vital signs reveal temperature 97.9, pulse 77, respiration 18 and blood pressure 121/78 patient with extensive right index finger abscess and cellulitis likely from gram-positive skin velvet underlying gram-negative infection less likely but not excluded -patient has been evaluated by orthopedics and status post drainage of the abscess and culture completed on 09/01/2023 which are currently pending -patient to continue with vancomycin and Unasyn while waiting for the culture to finalize 09/02/2023 Patient is seen and evaluated in follow-up today with infectious disease and orthopedics following. Patient is status post surgical debridement on the right index finger of the abscess along with the fingernail abscess. Patient is continued on antibiotics and preliminary culture showing presumptive MRSA. Awaiting finalized culture to determine discharge antibiotics. Patient may need IV antibiotics on discharge and case management is following working on discharge planning including verifying insurance coverage. Patient was instructed to continue with [facility] orthopedics and will continue with local wound care per ID recommendations. Patient continues to report pain and dis cussed with the patient about limiting IV pain medications and will adjust oral medications accordingly. Patient is afebrile and white count at 10 today with no reported chest pain or shortness of breath. Patient plans on returning home with possible need for home care in the outpatient setting. 09/03/2023 Patient seen and evaluated in follow-up this morning continues on IV antibiotics with infectious disease following. Culture showing presumptive MRSA with gram- negative and awaiting finalized cultures to determine discharge antibiotics. Given the extent of infection and debridement, patient will likely require IV antibiotics on discharge. Case management following working on discharge planning and verifying coverage for IV antibiotic therapy outpatient. Patient is afebrile with no reported chest pain or shortness of breath. Patient is tolerating diet and blood sugars are controlled on current regimen. Encouraged to increase activity as tolerated and continue local wound care per infectious disease. Review of systems: Constitutional: No reports of fatigue, fever, or chills Cardiovascular: No reports of chest pain or palpitations Respiratory: No reports of shortness of breath or cough GI: No reports of nausea, vomiting, or diarrhea : No reports of dysuria or retention Neurovascular: No reports of weakness or numbness, reports continued right hand pain of the right index finger All medications have been reviewed Physical exam: Gen: This is a 57-year-old male who is awake, alert and oriented x 3, well- developed, well-nourished, elderly appearing HEENT: Head is atraumatic, normocephalic. Pupils equal, round. Sclerae is anicteric. NECK: Supple. No JVD. No lymphadenopathy. No thyromegaly. LUNGS: Clear to auscultation. No wheezes, some scattered rhonchi. No in tercostal retractions. HEART: Regular rate and rhythm. No murmur. ABDOMEN: Soft. Bowel sounds are present. No masses. No tenderness. EXTREMITIES: No pedal edema. No calf tenderness. Right hand index finger recently debrided and dressings are dry and intact NEUROLOGICAL: Patient is awake, alert and oriented x3. Cranial nerves 2 through 12 are grossly intact. Assessment: -Severe cellulitis right index finger, status post incision and debridement of the nail abscess and finger abscess, preliminary culture showing presumptive MRSA -Uncontrolled pain, secondary to severe cellulitis. -Hypertension -Hyperlipidemia -Diabetes mellitus type 2, [id number] uncontrolled with hyperglycemia -Neuropathy -Anxiety/depression -GI prophylaxis -DVT prophylaxis; SCDs -full code Plan: Patient is continued on antibiotics in the form of Unasyn with ID following and will continue. Preliminary culture showing presumptive MRSA as well is gram- negative and awaiting finalized cultures to determine discharge antibiotics. Patient may benefit from outpatient antibiotics and will discuss case management/social work regarding verifying coverage. Patient has been instructed by orthopedics to continue with Hibiclens soaks and will continue local wound care per infectious disease recommendations Continue with pain management Continue monitoring Accu-Cheks before meals and at bedtime and will continue with current regimen with sliding scale Due to complex medical issues, prognosis is guarded Possible discharge in the next 24 to 48 hours once cultures have finalized and antibiotics arrange for discharge The impression and plan of care has been dictated by Sheree Quiles, Nurse Practitioner as directed. Dr. Ata MD I have performed a history and examination and MDM of this patient, discussed the same with the dictator, and agree with the dictator's assessment and plan as written ,documented as a scribe. Based on total visit time, I have performed more than 50% of the visit. Objective - Vital Signs Vital signs: Vital Signs Temp 97.8 F 09/04/23 01:00 Pulse 84 09/04/23 01:00 Resp 18 09/04/23 01:00 BP 146/85 09/04/23 01:00 Pulse Ox 97 09/04/23 01:00 FiO2 Intake & Output 09/03/23 09/03/23 09/04/23 06:59 18:59 06:59 Intake Total 800 240 Balance 800 240 Intake: Oral 800 240 Other: Voiding Method Toilet # Voids 3 1 - Labs CBC & Chem 7: 09/03/23 07:07 09/03/23 07:07 Labs: Abnormal Lab Results - Last 24 Hours (Table) 09/03/23 09/03/23 09/03/23 Range/Units 07:07 07:07 11:39 Hgb 12.7 L (13.0-17.0) g/dL MCH 26.8 L (27.0-32.0) pg MCHC 31.8 L (32.0-37.0) g/dL Eosinophils # 0.44 H (0.04-0.35) X 10*3/uL Glucose 104 H (74-99) mg/dL POC Glucose (mg/dL) 143 H (70-110) mg/dL 09/03/23 Range/Units 17:42 Hgb (13.0-17.0) g/dL MCH (27.0-32.0) pg MCHC (32.0-37.0) g/dL Eosinophils # (0.04-0.35) X 10*3/uL Glucose (74-99) mg/dL POC Glucose (mg/dL) 173 H (70-110) mg/dL Microbiology - Last 24 Hours (Table) 09/01/23 09:49 Anaerobic Culture - Preliminary Finger - Right Second 09/01/23 09:49 Anaerobic Culture - Preliminary Finger - Right Second 09/01/23 09:49 Anaerobic Culture - Preliminary Finger - Right Second 09/01/23 09:49 Gram Stain - Final Finger - Right Second Wound Culture - Final Serratia liquefaciens Methicillin resist S. aureus 09/01/23 09:49 Gram Stain - Final Finger - Right Second Wound Culture - Final Serratia liquefaciens Methicillin resist S. aureus 09/01/23 09:49 Gram Stain - Preliminary Finger - Right Second Tissue Culture - Preliminary Methicillin resist S. aureus Gram Neg Bacilli 08/30/23 15:30 Blood Culture - Preliminary Blood
[2023-09-04 07:22] LABS: Glucose,Whole Blood 114 mg/dL (70-110)
[2023-09-04 08:06] LABS: African American GFR (CKD) >90 (>60 ml/min/1.73 sqM); Non-African American GFR(CKD) >90 (>60 ml/min/1.73 sqM)
--- NOTE | 2023-09-04 08:17 | P.PN ---
Subjective Progress Note Date: 09/04/23 Principal diagnosis: Right index finger cellulitis Patient seen this morning. Patient is resting comfortably in bed. Surgical dressing to the right hand is CDI. Nursing staff reports that Dr. Jones had recommended the use of Aquacel silver and gauze dressing. Possible need for PICC line placement for OP antibiotics. Patient states his pain is managed on current regimen. No acute events overnight. Patient has been afebrile and no complaints of nausea/vomiting. Objective - Vital Signs Vital signs: Vital Signs Temp 97.7 F 09/04/23 07:17 Pulse 66 09/04/23 07:17 Resp 18 09/04/23 07:17 BP 126/83 09/04/23 07:17 Pulse Ox 97 09/04/23 07:17 FiO2 Intake & Output 09/03/23 09/04/23 09/04/23 18:59 06:59 18:59 Intake Total 240 Balance 240 Intake: Oral 240 Other: # Voids 1 - Exam RIGHT HAND Inspection: Negative for any open fractures. Right index finger wound, partial thickness loss 4cm x2cm x0.5cm extending to the web surface. Dressing is CDI. Sensation: Sensation is intact. Palpation: Moderate tenderness to the right dorsal index finger. No flexor tenderness noted. Range of motion: Patient does have right hand and wrist extension intact, thumb opposition intact, fingers 2-5 abduction intact Neurovascular: Radial pulse intact, 2+ bilaterally. Cap refill under 3 seconds in digits upper extremities. - Labs CBC & Chem 7: 09/03/23 07:07 09/04/23 07:02 Labs: Abnormal Lab Results - Last 24 Hours (Table) 09/03/23 09/03/23 09/03/23 Range/Units 07:07 11:39 17:42 Hgb 12.7 L (13.0-17.0) g/dL MCH 26.8 L (27.0-32.0) pg MCHC 31.8 L (32.0-37.0) g/dL Eosinophils # 0.44 H (0.04-0.35) X 10*3/uL POC Glucose (mg/dL) 143 H 173 H (70-110) mg/dL 09/04/23 Range/Units 07:20 Hgb (13.0-17.0) g/dL MCH (27.0-32.0) pg MCHC (32.0-37.0) g/dL Eosinophils # (0.04-0.35) X 10*3/uL POC Glucose (mg/dL) 114 H (70-110) mg/dL Microbiology - Last 24 Hours (Table) 09/01/23 09:49 Anaerobic Culture - Preliminary Finger - Right Second 09/01/23 09:49 Anaerobic Culture - Preliminary Finger - Right Second 09/01/23 09:49 Anaerobic Culture - Preliminary Finger - Right Second 09/01/23 09:49 Gram Stain - Final Finger - Right Second Wound Culture - Final Serratia liquefaciens Methicillin resist S. aureus 09/01/23 09:49 Gram Stain - Final Finger - Right Second Wound Culture - Final Serratia liquefaciens Methicillin resist S. aureus 09/01/23 09:49 Gram Stain - Preliminary Finger - Right Second Tissue Culture - Preliminary Methicillin resist S. aureus Gram Neg Bacilli 08/30/23 15:30 Blood Culture - Preliminary Blood Assessment and Plan Assessment: Post op Day 3: s/p right index finger nailbed abscess evacuation with nail plate removal and irrigation and debridement with excisional debridement of right index finger dorsal abscess and nailbed abscess. 1. Right index finger cellulitis Plan: Requested Dr. Diaz to come and assess patient with any further recommendations. 2. Appreciate medical management 3. Pain management - Tylenol, [place], IV Morphine, continue to elevate right hand on pillow. 4. Hygiene: Maintain dressing clean and dry. Continue with Aquacel silver dressi ngs at this time. 4. GI prophylaxis - per medicine 5. DVT prophylaxis - per medicine 6. PT/OT - weightbearing as tolerated 7. Appreciate consult
[2023-09-04 11:39] LABS: Glucose,Whole Blood 97 mg/dL (70-110)
[2023-09-04 12:56] LABS: INR 0.9 (<1.2); Prothrombin Time 10.1 sec (10.0-12.5)
--- NOTE | 2023-09-04 14:41 | IR ---
EXAMINATION TYPE: IR cvc insert >=5 years DATE OF EXAM: 09/04/2023 COMPARISON: NONE HISTORY: Fluoroscopy time. Fluoroscopy was provided to the referring clinician.
[2023-09-04 17:33] LABS: Glucose,Whole Blood 100 mg/dL (70-110)
[2023-09-04 20:28] LABS: Glucose,Whole Blood 95 mg/dL (70-110)
--- NOTE | 2023-09-04 23:49 | P.PN ---
Subjective Progress Note Date: 09/04/23 Principal diagnosis: Reason for follow-up is right index finger abscess Patient is a 57-year-old male past medical history significant for diabetes mellitus reflux hypertension hyperlipidemia COPD patient presenting to the hospital for evaluation of right index finger pain and swelling, patient be diagnosed with extensive abscess of the right index finger in this patient was status post drainage of the abscess by orthopedic surgeon on 09/01/2023. On today's evaluation that is 09/04/2023,the patient denies any fever or any chills, patient is breathing comfortably on room air, the patient denies chest pain shortness of breath and no significant cough, patient denies abdominal pain, no nausea vomiting or diarrhea, pain to the right index finger slightly decreased in intensity. Patient white count normalized to 8.90 creatinine 0.89 local culture with Serratia and MRSA blood culture negative Objective - Vital Signs Vital signs: Vital Signs Temp 97.7 F 09/04/23 07:17 Pulse 66 09/04/23 07:17 Resp 18 09/04/23 07:17 BP 126/83 09/04/23 07:17 Pulse Ox 97 09/04/23 07:17 FiO2 Intake & Output 09/03/23 09/04/23 09/04/23 18:59 06:59 18:59 Intake Total 240 Balance 240 Intake: Oral 240 Other: # Voids 1 - Exam GENERAL DESCRIPTION: Management of hematuria in no distress RESPIRATORY SYSTEM: Unlabored breathing , decreased breath sounds at bases HEART: S1 S2 regular rate and rhythm , ABDOMEN: Soft , no tenderness EXTREMITIES: Right index finger currently dressed no drainage on the dressing - Labs CBC & Chem 7: 09/03/23 07:07 09/04/23 07:02 Labs: Abnormal Lab Results - Last 24 Hours (Table) 09/03/23 09/03/23 09/03/23 Range/Units 07:07 11:39 17:42 Hgb 12.7 L (13.0-17.0) g/dL MCH 26.8 L (27.0-32.0) pg MCHC 31.8 L (32.0-37.0) g/dL Eosinophils # 0.44 H (0.04-0.35) X 10*3/uL POC Glucose (mg/dL) 143 H 173 H (70-110) mg/dL 09/04/23 Range/Units 07:20 Hgb (13.0-17.0) g/dL MCH (27.0-32.0) pg MCHC (32.0-37.0) g/dL Eosinophils # (0.04-0.35) X 10*3/uL POC Glucose (mg/dL) 114 H (70-110) mg/dL Microbiology - Last 24 Hours (Table) 09/01/23 09:49 Anaerobic Culture - Preliminary Finger - Right Second 09/01/23 09:49 Anaerobic Culture - Preliminary Finger - Right Second 09/01/23 09:49 Anaerobic Culture - Preliminary Finger - Right Second 09/01/23 09:49 Gram Stain - Final Finger - Right Second Wound Culture - Final Serratia liquefaciens Methicillin resist S. aureus 09/01/23 09:49 Gram Stain - Final Finger - Right Second Wound Culture - Final Serratia liquefaciens Methicillin resist S. aureus 09/01/23 09:49 Gram Stain - Preliminary Finger - Right Second Tissue Culture - Preliminary Methicillin resist S. aureus Gram Neg Bacilli 08/30/23 15:30 Blood Culture - Preliminary Blood Assessment and Plan (1) Abscess of right index finger Current Visit: Yes Status: Acute Code(s): L02.511 - CUTANEOUS ABSCESS OF RIGHT HAND SNOMED Code(s): 53014262277467623 (2) Cellulitis of finger of right hand Current Visit: Yes Status: Acute Code(s): L03.011 - CELLULITIS OF RIGHT FINGER SNOMED Code(s): 44959608 Plan: 1patient with extensive right index finger abscess and cellulitis likely from gram-positive skin velvet underlying gram-negative infection less likely but not excluded 2-patient has been evaluated by orthopedics and status post drainage of the abscess and culture completed on 09/01/2023 which are currently growing MRSA and Serratia marcescens 3-patient to continue with vancomycin and cefepime, PICC line has been ordered for a 2-week course of vancomycin and cefepime on discharge discussed with the COMPRESSOR ENGINEER for admitting team Dictation was produced using [employer] dictation software. please excuse any grammatical, word or spelling errors. Time with Patient: Less than 30
--- NOTE | 2023-09-05 06:51 | P.PN ---
Subjective Progress Note Date: 09/04/23 57-year-old male, history of hypertension, hyperlipidemia, diabetes mellitus, COPD, presents emergency department chief complaint of right finger pain and swelling. Patient states that 4 days ago he noticed that his right second digit was erythematous and swollen, most predominantly at the distal end of the metacarpal. States that yesterday went to his primary care provider where they gave him a shot of an antibiotic in office and sent him home on an antibiotic, which she does not remember the name of. Denies any trauma to the affected finger. Patient denies any nausea, vomiting, dizziness, lightheadedness, fevers. Denies a history of gout. Blood work completed in ED reveals WBC of 11.4, hemoglobin of 12.4 and platelet count of 213, sodium 136, potassium of 4.1, BUNs/creatinine of 24/0.96 X-ray of right hand reveals soft tissue swelling throughout the hand particularly second and third digit with no evidence of radiopaque foreign bodies 09/01/2023 the patient is seen and evaluated in room at bedside; continues to be afebrile, the patient is on 2 L nasal cannula oxygen and breathing comfortably, the Pt denies having any chest pain or cough, the patient denies having any abdominal pain no vomiting or any diarrhea, pain to the right index finger is currently controlled with the pain medication. Patient white count is 15.93 creatinine 0.83 cultures are pending Vital signs reveal temperature 97.9, pulse 77, respiration 18 and blood pressure 121/78 patient with extensive right index finger abscess and cellulitis likely from gram-positive skin velvet underlying gram-negative infection less likely but not excluded -patient has been evaluated by orthopedics and status post drainage of the abscess and culture completed on 09/01/2023 which are currently pending -patient to continue with vancomycin and Unasyn while waiting for the culture to finalize 09/02/2023 Patient is seen and evaluated in follow-up today with infectious disease and orthopedics following. Patient is status post surgical debridement on the right index finger of the abscess along with the fingernail abscess. Patient is continued on antibiotics and preliminary culture showing presumptive MRSA. Awaiting finalized culture to determine discharge antibiotics. Patient may need IV antibiotics on discharge and case management is following working on discharge planning including verifying insurance coverage. Patient was instructed to continue with [facility] orthopedics and will continue with local wound care per ID recommendations. Patient continues to report pain and dis cussed with the patient about limiting IV pain medications and will adjust oral medications accordingly. Patient is afebrile and white count at 10 today with no reported chest pain or shortness of breath. Patient plans on returning home with possible need for home care in the outpatient setting. 09/03/2023 Patient seen and evaluated in follow-up this morning continues on IV antibiotics with infectious disease following. Culture showing presumptive MRSA with gram- negative and awaiting finalized cultures to determine discharge antibiotics. Given the extent of infection and debridement, patient will likely require IV antibiotics on discharge. Case management following working on discharge planning and verifying coverage for IV antibiotic therapy outpatient. Patient is afebrile with no reported chest pain or shortness of breath. Patient is tolerating diet and blood sugars are controlled on current regimen. Encouraged to increase activity as tolerated and continue local wound care per infectious disease. 09/04/2023 Patient is seen and evaluated in follow-up this morning continues to report significant pain on her right index finger status post debridement. Orthopedics following recommend Dr. Ruiz hand specialist to evaluate the patient. She would like to perform bedside debridement on 09/05/2023. Infectious disease following as well maintained on IV antibiotics and will require IV antibiotic therapy on discharge. Case management following verified patient is 100% cove red in office and will make arrangements for home care as well as outpatient IV antibiotic therapy. Patient scheduled to receive a PICC line sometime today and will await Dr. Ruiz report and clearance. Patient is afebrile with no reported chest pain or shortness of breath. Patient tolerating diet with no reported nausea or vomiting. Review of systems: Constitutional: No reports of fatigue, fever, or chills Cardiovascular: No reports of chest pain or palpitations Respiratory: No reports of shortness of breath or cough GI: No reports of nausea, vomiting, or diarrhea : No reports of dysuria or retention Neurovascular: No reports of weakness or numbness, reports continued right hand pain of the right index finger and reports accidentally striking his right hand on the bed causing increased pain All medications have been reviewed Physical exam: Gen: This is a 57-year-old male who is awake, alert and oriented x 3, well- developed, well-nourished, elderly appearing HEENT: Head is atraumatic, normocephalic. Pupils equal, round. Sclerae is anicteric. NECK: Supple. No JVD. No lymphadenopathy. No thyromegaly. LUNGS: Clear to auscultation. No wheezes, some scattered rhonchi. No int ercostal retractions. HEART: Regular rate and rhythm. No murmur. ABDOMEN: Soft. Bowel sounds are present. No masses. No tenderness. EXTREMITIES: No pedal edema. No calf tenderness. Right hand index finger recently debrided and dressings are dry and intact NEUROLOGICAL: Patient is awake, alert and oriented x3. Cranial nerves 2 through 12 are grossly intact. Assessment: -Severe cellulitis right index finger, status post incision and debridement of the nail abscess and finger abscess, preliminary culture showing presumptive MRSA -Uncontrolled pain, secondary to severe cellulitis. -Hypertension -Hyperlipidemia -Diabetes mellitus type 2, [id number] uncontrolled with hyperglycemia -Neuropathy -Anxiety/depression -GI prophylaxis -DVT prophylaxis; SCDs -full code Plan: Patient is continued on antibiotics in the form of Unasyn with ID following and will continue. Preliminary culture showing presumptive MRSA as well is gram- negative and awaiting finalized cultures to determine discharge antibiotics. Patient will need outpatient antibiotics and case management/social work verified that patient is 100% covered in the office and making arrangements for home care as well as outpatient IV antibiotic therapy. Order placed for PICC line with vascular surgery and will likely occur this afternoon if not tomorrow morning based on [facility] staffing Patient has been instructed by orthopedics to continue with Hibiclens soaks and will continue local wound care per infectious disease recommendations. Dr. Ruiz evaluated the patient recommending bedside debridement which will occur on 09/05/2023. Will await report Continue with pain management Continue monitoring Accu-Cheks before meals and at bedtime and will continue with current regimen with sliding scale Due to complex medical issues, prognosis is guarded Possible discharge in the next 24 to 48 hours once cultures have finalized and antibiotics arrange for discharge The impression and plan of care has been dictated by Sheree Quiles, Nurse Practitioner as directed. Dr. Ata MD I have performed a history and examination and MDM of this patient, discussed the same with the dictator, and agree with the dictator's assessment and plan as written ,documented as a scribe. Based on total visit time, I have performed more than 50% of the visit. Objective - Vital Signs Vital signs: Vital Signs Temp 97.7 F 09/04/23 07:17 Pulse 66 09/04/23 07:17 Resp 18 09/04/23 07:17 BP 126/83 09/04/23 07:17 Pulse Ox 97 09/04/23 07:17 FiO2 Intake & Output 09/03/23 09/04/23 09/04/23 18:59 06:59 18:59 Intake Total 240 Balance 240 Intake: Oral 240 Other: # Voids 1 - Labs CBC & Chem 7: 09/03/23 07:07 09/04/23 07:02 Labs: Abnormal Lab Results - Last 24 Hours (Table) 09/03/23 09/03/23 09/03/23 Range/Units 07:07 11:39 17:42 Hgb 12.7 L (13.0-17.0) g/dL MCH 26.8 L (27.0-32.0) pg MCHC 31.8 L (32.0-37.0) g/dL Eosinophils # 0.44 H (0.04-0.35) X 10*3/uL POC Glucose (mg/dL) 143 H 173 H (70-110) mg/dL 09/04/23 Range/Units 07:20 Hgb (13.0-17.0) g/dL MCH (27.0-32.0) pg MCHC (32.0-37.0) g/dL Eosinophils # (0.04-0.35) X 10*3/uL POC Glucose (mg/dL) 114 H (70-110) mg/dL Microbiology - Last 24 Hours (Table) 09/01/23 09:49 Anaerobic Culture - Preliminary Finger - Right Second 09/01/23 09:49 Anaerobic Culture - Preliminary Finger - Right Second 09/01/23 09:49 Anaerobic Culture - Preliminary Finger - Right Second 09/01/23 09:49 Gram Stain - Final Finger - Right Second Wound Culture - Final Serratia liquefaciens Methicillin resist S. aureus 09/01/23 09:49 Gram Stain - Final Finger - Right Second Wound Culture - Final Serratia liquefaciens Methicillin resist S. aureus 09/01/23 09:49 Gram Stain - Preliminary Finger - Right Second Tissue Culture - Preliminary Methicillin resist S. aureus Gram Neg Bacilli 08/30/23 15:30 Blood Culture - Preliminary Blood
[2023-09-05 07:43] LABS: Glucose,Whole Blood 106 mg/dL (70-110)
[2023-09-05] MEDS: VANCOMYCIN TROUGH DUE 1 EACH MISC MISCELLANE ONE (10:10)
--- NOTE | 2023-09-05 10:22 | P.PN ---
Progress Note - Text Progress Note Date: 09/05/23 Patient will require a cane on discharge to assist with walking to complete with ADLs secondary to chronic back pain as well as diabetic neuropathy. Prescription was provided to case management working on discharge planning.
[2023-09-05 12:09] LABS: Glucose,Whole Blood 90 mg/dL (70-110)
--- NOTE | 2023-09-05 15:26 | P.PN ---
Subjective Progress Note Date: 09/05/23 Principal diagnosis: Reason for follow-up is right index finger abscess Patient is a 57-year-old male past medical history significant for diabetes mellitus reflux hypertension hyperlipidemia COPD patient presenting to the hospital for evaluation of right index finger pain and swelling, patient be diagnosed with extensive abscess of the right index finger in this patient was status post drainage of the abscess by orthopedic surgeon on 09/01/2023. On today's evaluation that is 09/05/2023,the patient remains to be afebrile, patient is on room air not requiring supplemental oxygen and denies any shortness of breath no chest pain or cough.Patient denies having any nausea or vomiting, no abdominal pain and no diarrhea has been reported, pain to the right index finger is controlled with current medication. Patient vancomycin trough of 15.8 and no other labs were drawn today culture with MRSA and Serratia Objective - Vital Signs Vital signs: Vital Signs Temp 97.6 F 09/05/23 07:35 Pulse 76 09/05/23 07:35 Resp 16 09/05/23 07:35 BP 145/86 09/05/23 07:35 Pulse Ox 95 09/05/23 02:00 FiO2 Intake & Output 09/04/23 09/05/23 09/05/23 18:59 06:59 18:59 Intake Total 225 Balance 225 Intake: Intake, IV Titration 225 Amount Cefepime 2 gm In Sodium 100 Chloride 0.9% 100 ml @ 25 mls/hr IVPB Q8HR [facility] Rx# :[id number] Vancomycin 1,250 mg In 125 Sodium Chloride 0.9% 250 ml @ 125 mls/hr IVPB Q8HR [facility] Rx#:[id number] Other: Voiding Method Toilet # Voids 3 - Exam GENERAL DESCRIPTION: Management of hematuria in no distress RESPIRATORY SYSTEM: Unlabored breathing , decreased breath sounds at bases HEART: S1 S2 regular rate and rhythm , ABDOMEN: Soft , no tenderness EXTREMITIES: Right index finger currently dressed no drainage on the dressing - Labs CBC & Chem 7: 09/03/23 07:07 09/04/23 07:02 Labs: Microbiology - Last 24 Hours (Table) 08/30/23 15:45 Blood Culture - Final Blood 09/01/23 09:49 Gram Stain - Final Finger - Right Second Tissue Culture - Final Methicillin resist S. aureus Serratia liquefaciens Assessment and Plan (1) Abscess of right index finger Current Visit: Yes Status: Acute Code(s): L02.511 - CUTANEOUS ABSCESS OF RIGHT HAND SNOMED Code(s): 03995190386029533 (2) Cellulitis of finger of right hand Current Visit: Yes Status: Acute Code(s): L03.011 - CELLULITIS OF RIGHT FINGER SNOMED Code(s): 87494775 Plan: 1patient with extensive right index finger abscess and cellulitis likely from gram-positive skin velvet underlying gram-negative infection less likely but not excluded 2-patient has been evaluated by orthopedics and status post drainage of the abscess and culture completed on 09/01/2023 which are currently growing MRSA and Serratia marcescens 3-patient did have PICC line placement currently waiting for outpatient IV antibiotic arrangement in the form of vancomycin and cefepime x 2 weeks and close outpatient follow-up prescription provided to the keycase assembler Dictation was produced using [employer] dictation software. please excuse any grammatical, word or spelling errors. Time with Patient: Less than 30
[2023-09-05 17:14] LABS: Glucose,Whole Blood 99 mg/dL (70-110)
--- NOTE | 2023-09-05 18:06 | P.PN ---
Subjective Progress Note Date: 09/05/23 Patient was seen and examined today. He states overall the finger is doing better on a daily basis. A wet to dry dressing was applied yesterday and upon removal of the dressing and after the latest soak he states most of all of the superficial tissue has been removed and the appearance is overall much improved. Objective - Vital Signs Vital signs: Vital Signs Temp 97.7 F 09/05/23 11:50 Pulse 70 09/05/23 11:50 Resp 16 09/05/23 11:50 BP 126/76 09/05/23 11:50 Pulse Ox 95 09/05/23 11:50 FiO2 Intake & Output 09/04/23 09/05/23 09/05/23 18:59 06:59 18:59 Intake Total 225 Balance 225 Intake: Intake, IV Titration 225 Amount Cefepime 2 gm In Sodium 100 Chloride 0.9% 100 ml @ 25 mls/hr IVPB Q8HR [facility] Rx# :[id number] Vancomycin 1,250 mg In 125 Sodium Chloride 0.9% 250 ml @ 125 mls/hr IVPB Q8HR [facility] Rx#:[id number] Other: Voiding Method Toilet Toilet # Voids 3 - Exam Right index finger has healthy granulation tissue present along dorsum of finger. NTTP over flexor tendon sheath, 0/5 kanaval signs. Sensation is intact along volar and dorsal surfaces of the index finger. No active purulence present. - Labs CBC & Chem 7: 09/03/23 07:07 09/04/23 07:02 Labs: Microbiology - Last 24 Hours (Table) 08/30/23 15:30 Blood Culture - Final Blood 08/30/23 15:45 Blood Culture - Final Blood 09/01/23 09:49 Gram Stain - Final Finger - Right Second Tissue Culture - Final Methicillin resist S. aureus Serratia liquefaciens Assessment and Plan Assessment: 1.) Left index finger abscess/cellulitis s/p I&D with Dr. Li 09/01/23 Plan: He is doing better on a daily basis. The superficial tissue layer has been removed with the latest soak and wet to dry dressing. A new Xeroform dressing was applied at bedside. He may continue daily dressing changes two times a day and may DC soaking tomorrow. Recommend daily dressing changes for the next 1 week with adaptic, 4x4s and alexandre wrap. He is stable for DC from orthopedic standpoint with outpatient follow up in 2 weeks. -Tung Ruiz DO Orthopedic Hand/Upper Extremity Surgeon
[2023-09-05 20:08] LABS: Glucose,Whole Blood 120 mg/dL (70-110)
[2023-09-06 06:42] LABS: African American GFR (CKD) >90 (>60 ml/min/1.73 sqM); Non-African American GFR(CKD) >90 (>60 ml/min/1.73 sqM)
--- NOTE | 2023-09-06 06:56 | P.PN ---
Subjective Progress Note Date: 09/05/23 57-year-old male, history of hypertension, hyperlipidemia, diabetes mellitus, COPD, presents emergency department chief complaint of right finger pain and swelling. Patient states that 4 days ago he noticed that his right second digit was erythematous and swollen, most predominantly at the distal end of the metacarpal. States that yesterday went to his primary care provider where they gave him a shot of an antibiotic in office and sent him home on an antibiotic, which she does not remember the name of. Denies any trauma to the affected finger. Patient denies any nausea, vomiting, dizziness, lightheadedness, fevers. Denies a history of gout. Blood work completed in ED reveals WBC of 11.4, hemoglobin of 12.4 and platelet count of 213, sodium 136, potassium of 4.1, BUNs/creatinine of 24/0.96 X-ray of right hand reveals soft tissue swelling throughout the hand particularly second and third digit with no evidence of radiopaque foreign bodies 09/01/2023 the patient is seen and evaluated in room at bedside; continues to be afebrile, the patient is on 2 L nasal cannula oxygen and breathing comfortably, the Pt denies having any chest pain or cough, the patient denies having any abdominal pain no vomiting or any diarrhea, pain to the right index finger is currently controlled with the pain medication. Patient white count is 15.93 creatinine 0.83 cultures are pending Vital signs reveal temperature 97.9, pulse 77, respiration 18 and blood pressure 121/78 patient with extensive right index finger abscess and cellulitis likely from gram-positive skin velvet underlying gram-negative infection less likely but not excluded -patient has been evaluated by orthopedics and status post drainage of the abscess and culture completed on 09/01/2023 which are currently pending -patient to continue with vancomycin and Unasyn while waiting for the culture to finalize 09/02/2023 Patient is seen and evaluated in follow-up today with infectious disease and orthopedics following. Patient is status post surgical debridement on the right index finger of the abscess along with the fingernail abscess. Patient is continued on antibiotics and preliminary culture showing presumptive MRSA. Awaiting finalized culture to determine discharge antibiotics. Patient may need IV antibiotics on discharge and case management is following working on discharge planning including verifying insurance coverage. Patient was instructed to continue with [facility] orthopedics and will continue with local wound care per ID recommendations. Patient continues to report pain and dis cussed with the patient about limiting IV pain medications and will adjust oral medications accordingly. Patient is afebrile and white count at 10 today with no reported chest pain or shortness of breath. Patient plans on returning home with possible need for home care in the outpatient setting. 09/03/2023 Patient seen and evaluated in follow-up this morning continues on IV antibiotics with infectious disease following. Culture showing presumptive MRSA with gram- negative and awaiting finalized cultures to determine discharge antibiotics. Given the extent of infection and debridement, patient will likely require IV antibiotics on discharge. Case management following working on discharge planning and verifying coverage for IV antibiotic therapy outpatient. Patient is afebrile with no reported chest pain or shortness of breath. Patient is tolerating diet and blood sugars are controlled on current regimen. Encouraged to increase activity as tolerated and continue local wound care per infectious disease. 09/04/2023 Patient is seen and evaluated in follow-up this morning continues to report significant pain on her right index finger status post debridement. Orthopedics following recommend Dr. Ruiz hand specialist to evaluate the patient. She would like to perform bedside debridement on 09/05/2023. Infectious disease following as well maintained on IV antibiotics and will require IV antibiotic therapy on discharge. Case management following verified patient is 100% cove red in office and will make arrangements for home care as well as outpatient IV antibiotic therapy. Patient scheduled to receive a PICC line sometime today and will await Dr. Ruiz report and clearance. Patient is afebrile with no reported chest pain or shortness of breath. Patient tolerating diet with no reported nausea or vomiting. 09/05/2023 Patient is seen and evaluated in follow-up today infectious disease following. Patient has received a PICC line with plans on IV antibiotics outpatient. Patient will have home care and be receiving IV antibiotics at the home. Patient to be evaluated by Dr. Ruiz hand surgeon for possible bedside debridement. Per nursing staff patient underwent another Hibiclens soak with cleansing and removed the bandage and the remaining slough and skin was removed with a bandage revealing a clean skin that with no drainage or sloughing noted. Patient has been instructed to continue with soaks for 1 more day and dressing per wound care. No plans for debridement at this time. Patient to follow-up outpatient. Patient is afebrile with no reported chest pain or shortness of breath. Ready diet with no reported nausea or vomiting. Blood sugars have been well-controlled. Review of systems: Constitutional: No reports of fatigue, fever, or chills Cardiovascular: No reports of chest pain or palpitations Respiratory: No reports of shortness of breath or cough GI: No reports of nausea, vomiting, or diarrhea : No reports of dysuria or retention Neurovascular: No reports of weakness or numbness, reports continued right hand pain of the right index finger although reports is improving All medications have been reviewed Physical exam: Gen: This is a 57-year-old male who is awake, alert and oriented x 3, well- developed, well-nourished, elderly appearing HEENT: Head is atraumatic, normocephalic. Pupils equal, round. Sclerae is anicteric. NECK: Supple. No JVD. No lymphadenopathy. No thyromegaly. LUNGS: Clear to auscultation. No wheezes, some scattered rhonchi. No intercostal retractions. HEART: Regular rate and rhythm. No murmur. ABDOMEN: Soft. Bowel sounds are present. No masses. No tenderness. EXTREMITIES: No pedal edema. No calf tenderness. Right hand index finger recently debrided and dressings are dry and intact NEUROLOGICAL: Patient is awake, alert and oriented x3. Cranial nerves 2 through 12 are grossly intact. Assessment: -Severe cellulitis right index finger, status post incision and debridement of the nail abscess and finger abscess, preliminary culture showing presumptive MRSA -Uncontrolled pain, secondary to severe cellulitis. -Hypertension -Hyperlipidemia -Diabetes mellitus type 2, [id number] uncontrolled with hyperglycemia -Neuropathy -Anxiety/depression -GI prophylaxis -DVT prophylaxis; SCDs -full code Plan: Patient is continued on antibiotics in the form of Unasyn with ID following and will continue. Preliminary culture showing presumptive MRSA as well is gram- negative and awaiting finalized cultures to determine discharge antibiotics. Patient will need outpatient antibiotics and case management/social work verified that patient is 100% covered and making arrangements for home care as well as outpatient IV antibiotic therapy. Patient has received a PICC line with vascular surgery Patient has been instructed by orthopedics to continue with Hibiclens soaks and will continue local wound care per infectious disease recommendations. Dr. Ruiz evaluated the patient status post cleansing and soak with noted clean surgical bed with no slough or drainage noted. No plans for further debridement and recommending outpatient follow-up Continue with pain management. Avoid IV narcotics and discussed with nursing staff Continue monitoring Accu-Cheks before meals and at bedtime and will continue with current regimen with sliding scale Due to complex medical issues, prognosis is guarded Possible discharge in the next 24 hours The impression and plan of care has been dictated by Sheree Quiles, Nurse Practitioner as directed. Dr. Ata MD I have performed a history and examination and MDM of this patient, discussed the same with the dictator, and agree with the dictator's assessment and plan as written ,documented as a scribe. Based on total visit time, I have performed more than 50% of the visit. Objective - Vital Signs Vital signs: Vital Signs Temp 97.6 F 09/05/23 07:35 Pulse 76 09/05/23 07:35 Resp 16 09/05/23 07:35 BP 145/86 09/05/23 07:35 Pulse Ox 95 09/05/23 02:00 FiO2 Intake & Output 09/04/23 09/05/23 09/05/23 18:59 06:59 18:59 Intake Total 225 Balance 225 Intake: Intake, IV Titration 225 Amount Cefepime 2 gm In Sodium 100 Chloride 0.9% 100 ml @ 25 mls/hr IVPB Q8HR [facility] Rx# :[id number] Vancomycin 1,250 mg In 125 Sodium Chloride 0.9% 250 ml @ 125 mls/hr IVPB Q8HR [facility] Rx#:[id number] Other: Voiding Method Toilet # Voids 3 - Labs CBC & Chem 7: 09/03/23 07:07 09/06/23 05:48 Labs: Microbiology - Last 24 Hours (Table) 08/30/23 15:45 Blood Culture - Final Blood 09/01/23 09:49 Gram Stain - Final Finger - Right Second Tissue Culture - Final Methicillin resist S. aureus Serratia liquefaciens
[2023-09-06 07:49] LABS: Glucose,Whole Blood 88 mg/dL (70-110)
[2023-09-06 08:19] VITALS: BMI 27.6
[2023-09-06 10:43] VITALS: BP 113/81; PULSE 67; RESP 17; TEMP 97.6
[2023-09-06 12:08] LABS: Glucose,Whole Blood 103 mg/dL (70-110)
--- NOTE | 2023-09-06 16:27 | P.PN ---
Subjective Progress Note Date: 09/06/23 Principal diagnosis: Reason for follow-up is right index finger abscess Patient is a 57-year-old male past medical history significant for diabetes mellitus reflux hypertension hyperlipidemia COPD patient presenting to the hospital for evaluation of right index finger pain and swelling, patient be diagnosed with extensive abscess of the right index finger in this patient was status post drainage of the abscess by orthopedic surgeon on 09/01/2023. On today's evaluation that is 09/06/2023, the patient continues to be afebrile, the patient is on room air and breathing comfortably, the Pt denies having any chest pain or cough, the patient denies having any abdominal pain no vomiting or any diarrhea pain to the right index finger has decreased in intensity. Patient did have a creatinine 0.83 Objective - Vital Signs Vital signs: Vital Signs Temp 97.6 F 09/06/23 07:49 Pulse 67 09/06/23 07:49 Resp 17 09/06/23 07:49 BP 113/81 09/06/23 07:49 Pulse Ox 98 09/06/23 07:49 FiO2 Intake & Output 09/05/23 09/06/23 09/06/23 18:59 06:59 18:59 Intake Total 225 Balance 225 Weight 87.543 kg Intake: Intake, IV Titration 225 Amount Cefepime 2 gm In Sodium 100 Chloride 0.9% 100 ml @ 25 mls/hr IVPB Q8HR [facility] Rx# :[id number] Vancomycin 1,250 mg In 125 Sodium Chloride 0.9% 250 ml @ 125 mls/hr IVPB Q8HR [facility] Rx#:[id number] Other: Voiding Method Toilet Toilet Toilet # Voids 1 - Exam GENERAL DESCRIPTION: Management of hematuria in no distress RESPIRATORY SYSTEM: Unlabored breathing , decreased breath sounds at bases HEART: S1 S2 regular rate and rhythm , ABDOMEN: Soft , no tenderness EXTREMITIES: Right index finger currently dressed no drainage on the dressing - Labs CBC & Chem 7: 09/03/23 07:07 09/06/23 05:48 Labs: Abnormal Lab Results - Last 24 Hours (Table) 09/05/23 Range/Units 19:48 POC Glucose (mg/dL) 120 H (70-110) mg/dL Microbiology - Last 24 Hours (Table) 09/01/23 09:49 Anaerobic Culture - Final Finger - Right Second 09/01/23 09:49 Anaerobic Culture - Final Finger - Right Second 09/01/23 09:49 Anaerobic Culture - Final Finger - Right Second 08/30/23 15:30 Blood Culture - Final Blood Assessment and Plan (1) Abscess of right index finger Status: Acute Code(s): L02.511 - CUTANEOUS ABSCESS OF RIGHT HAND SNOMED Code(s): 23980431373275890 (2) Cellulitis of finger of right hand Status: Acute Code(s): L03.011 - CELLULITIS OF RIGHT FINGER SNOMED Code(s): 15158580 Plan: 1patient with extensive right index finger abscess and cellulitis likely from gram-positive skin velvet underlying gram-negative infection less likely but not excluded 2-patient has been evaluated by orthopedics and status post drainage of the abscess and culture completed on 09/01/2023 which are currently growing MRSA and Serratia marcescens 3-patient did have PICC line placement currently plan is to continue with vancomycin and cefepime x 2 weeks on discharge and close outpatient follow-up Dictation was produced using [employer] dictation software. please excuse any grammatical, word or spelling errors. Time with Patient: Less than 30
--- NOTE | 2023-09-07 11:38 | P.DS ---
Providers Date of admission: 08/30/23 16:17 Expected date of discharge: 09/06/23 Attending physician: Sonia Hung MD Consults: 08/30/23 16:08 Consult Physician Stat Consulting Provider: Dre Jones Consult Reason/Comments: cellulitis Do you want consulting provider notified?: Yes 08/31/23 11:05 Consult Physician Routine Consulting Provider: Noah Li Consult Reason/Comments: Right index finger cellulitis Do you want consulting provider notified?: Already Contacted Primary care physician: Adam Penaloza [facility] Course: Final diagnosis -Severe cellulitis right index finger, status post incision and debridement of the nail abscess and finger abscess, culture showing presumptive MRSA -Uncontrolled pain, secondary to severe cellulitis. -Hypertension -Hyperlipidemia -Diabetes mellitus type 2, qkz-faihupj-gshbvfrit uncontrolled with hyperglycemia -Neuropathy -Anxiety/depression -GI prophylaxis -DVT prophylaxis; SCDs -full code Discharge disposition Patient is being discharged in a stable condition with guarded prognosis to home with home care. Patient will follow-up with Dr. Penaloza in the outpatient setting upon discharge. Patient is to continue with IV antibiotics with a PICC line and is outpatient follow-up with orthopedics as well as scheduled. Total time taken is greater than 35 minutes. Hospital course This is a 57-year-old male who was recently admitted with severe cellulitis of the right index finger incision and drainage with debridement of the nail abscess as well as finger abscess with orthopedics. Patient with culture showin g MRSA to be followed by infectious disease. Patient has received a PICC line and will continue on IV antibiotics outpatient. Patient instructed to follow-up with infectious disease as well as orthopedics. Please refer to other consultation notes for further HPI. Currently no reports of chest pain, shortness of breath, or palpitations. Patient is afebrile. No reports of nausea or vomiting and patient is tolerating diet. Patient will be discharged home today. Guarded prognosis 57-year-old male who is awake, alert and oriented x 3, well-developed, well-nourished, elderly appearing Physical exam: Gen: This is a 57-year-old male who is awake, alert and oriented x 3, well- developed, well-nourished, elderly appearing HEENT: Head is atraumatic, normocephalic. Pupils equal, round. Sclerae is anicteric. NECK: Supple. No JVD. No lymphadenopathy. No thyromegaly. LUNGS: Clear to auscultation. No wheezes or rhonchi. No intercostal retractions. HEART: Regular rate and rhythm. No murmur. ABDOMEN: Soft. Bowel sounds are present. No masses. No tenderness. EXTREMITIES: No pedal edema. No calf tenderness. Right index finger dressing is dry and intact NEUROLOGICAL: Patient is awake, alert and oriented x3. Cranial nerves 2 through 12 are grossly intact. Please refer to medication reconciliation sheet for a list of medications. The impression and plan of care has been dictated by Sheree Quiles, Nurse Practitioner as directed. Dr. Ata MD I have performed a history and examination and MDM of this patient, discussed the same with the dictator, and agree with the dictator's assessment and plan as written ,documented as a scribe. Based on total visit time, I have performed more than 50% of the visit. Patient Condition at Discharge: Good Plan - Discharge Summary Discharge Rx Participant: Yes New Discharge Prescriptions: New HYDROcodone/APAP 7.5-325MG [Alderson 7.5-325] 1 each PO Q4H PRN #6 tab PRN Reason: Pain Acetaminophen Tab [Tylenol] 1,000 mg PO Q6HR PRN tab PRN Reason: Fever And/ Or Pain Continue busPIRone HCL [Buspirone HCl] 10 mg PO BID Losartan Potassium 100 mg PO DAILY Ibuprofen [Motrin] 800 mg PO TID PRN PRN Reason: Pain Hydrochlorothiazide 25 mg PO DAILY Fenofibrate 160 mg PO DAILY Albuterol Sulfate [Ventolin HFA] 2 puff INHALATION RT-Q4H PRN PRN Reason: Shortness Of Breath diazePAM 10 mg PO BID Clotrimazole/Betameth Cream [Lotrisone] 1 applic TOPICAL BID carisoprodoL [Soma] 350 mg PO BID Atorvastatin [Lipitor] 40 mg PO DAILY Omeprazole [PriLOSEC] 20 mg PO DAILY Pregabalin 200 mg PO BID metFORMIN HCL [Glucophage] 1,000 mg PO BID-W/MEALS Phentermine HCl [Adipex-P] 37.5 mg PO DAILY Citalopram Hydrobromide [CeleXA] 20 mg PO DAILY Dulaglutide [Trulicity] 0.75 mg SQ Q7D Discontinued Amoxic-Pot Clav 875-125Mg [Augmentin 875-125] 1 tab PO BID Discharge Medication List Albuterol Sulfate [Ventolin HFA] 2 puff INHALATION RT-Q4H PRN 02/26/15 [History] Fenofibrate 160 mg PO DAILY 02/26/15 [History] Hydrochlorothiazide 25 mg PO DAILY 02/26/15 [History] Ibuprofen [Motrin] 800 mg PO TID PRN 02/26/15 [History] Losartan Potassium 100 mg PO DAILY 02/26/15 [History] busPIRone HCL [Buspirone HCl] 10 mg PO BID 02/26/15 [History] Atorvastatin [Lipitor] 40 mg PO DAILY 12/21/18 [History] Clotrimazole/Betameth Cream [Lotrisone] 1 applic TOPICAL BID 12/21/18 [History] carisoprodoL [Soma] 350 mg PO BID 12/21/18 [History] diazePAM 10 mg PO BID 12/21/18 [History] Omeprazole [PriLOSEC] 20 mg PO DAILY 05/30/20 [History] Pregabalin 200 mg PO BID 08/06/20 [History] Citalopram Hydrobromide [CeleXA] 20 mg PO DAILY 08/30/23 [History] Dulaglutide [Trulicity] 0.75 mg SQ Q7D 08/30/23 [History] Phentermine HCl [Adipex-P] 37.5 mg PO DAILY 08/30/23 [History] metFORMIN HCL [Glucophage] 1,000 mg PO BID-W/MEALS 08/30/23 [History] Acetaminophen Tab [Tylenol] 1,000 mg PO Q6HR PRN tab 09/06/23 [Rx] HYDROcodone/APAP 7.5-325MG [Alderson 7.5-325] 1 each PO Q4H PRN #6 tab 09/06/23 [Rx] Follow up Appointment(s)/Referral(s): Tung Ruiz DO [Doctor of Osteopathic Medicine] - 09/20/23 2:30 pm (Please arrive at 2:00pm to fill out paperwork.) Adam Penaloza MD [Primary Care Provider] - 09/11/23 2:00 pm [facility], [NON[facility]STAFF] - [facility] - 1 Week Dre Jones MD [STAFF PHYSICIAN] - 09/16/23 2:15 pm () Activity/Diet/Wound Care/Special Instructions: Hygiene: Recommend daily dressing changes for the next 1 week with adaptic, 4x4s and alexandre wrap. Keep dressings clean and dry. Take medications as directed. Elevate as needed. Follow up with Dr. Li in 2 weeks. Please feel free to call the office with any questions or concerns Discharge Disposition: HOME WITH HOME HEALTH SERVICES
--- NOTE | 2023-09-09 10:30 | CDI ---
Documentation Clarification Form Date: 09/09/2023 09:41:28 AM From: Isa Escalante Admit Date: 08/30/2023 04:17:00 PM Patient Name: Florentino Chowdhury Visit Number: [id number] Discharge Date: 09/06/2023 01:20:00 PM ATTENTION: The Clinical Documentation Specialists (CDI) and [facility] Coding Staff appreciate your assistance in clarifying documentation. Please respond to the clarification below the line at the bottom and electronically sign. The CDI & [facility] Coding staff will review the response and follow-up if needed. Please note: Queries are made part of the Legal Health Record. If you have any questions, please contact the author of this message via ITS. Dr. Sonia Hung Cellulitis and abscess of right index finger is documented throughout the chart and patient is noted to have Diabetes Type II. Please clarify if there is a relationship between the diagnosis of cellulitis and diabetes. History/Risk Factors: Patient with history of nieto bite, diabetes II and abscess and cellulitis right index finger. Treatment: IV Unasyn, monitor CBC CRP and procalcitorin. Debridement of necrotic tissue and removal of nail. Please clarify the relationship, if any, which is clinically appropriate for this patient: [ ] Right index finger cellulitis and abscess is due to DM Type II [ ] Right index finger cellulitis and abscess is not due to DM II [ ] Other explanation of clinical findings (please specify) [ ### ] Unable to determine (no explanation for clinical findings) MTDD
--- NOTE | 2023-09-09 13:36 | P.OP ---
Date of Procedure: 09/04/23 Description of Procedure: Preoperative Diagnosis: Need for long-term IV antibiotic access. Postoperative Diagnosis: Same. Procedure(s) Performed: Ultrasound-guided cannulation left basilic vein. Insertion of peripherally inserted central catheter under fluoroscopic guidance. Anesthesia: local 1% lidocaine basim Surgeon: Ramya Estimated Blood Loss (ml): 5 IV fluids (ml): 0 Urine output (ml): 0 Pathology: none sent Condition: stable Disposition: no change Indications for Procedure: Patient requires long-term IV antibiotics as an outpatient patient is offered a PICC line to allow for intravenous administration of antibiotics. Description of Procedure: Patient was brought to the special procedure suite. The left upper extremity sterilely prepped and draped in usual manner. Ultrasound was utilized to identify the basilic vein which was normally compressible free of visible thrombus. Permenant image was stored. 1% Xylocaine was utilized for local anesthesia tissues overlying the vein. Through this anesthetized area and with the aid of ultrasound a micropuncture needle was utilized to cannulate the vein. Once cannulated, Softip guidewire was advanced into the vein. The needle was withdrawn and a micropuncture sheath and dilator advanced over the guidewire. The guidewire was withdrawn and exchanged for the PICC guidewire and measured 48 cm to the cavoatrial junction. The catheter was cut to size and advanced into the cavoatrial junction without resistance. The sheath was peeled away. Blood was easily withdrawn through the catheter and the catheter was then flushed with heparinized saline solution and secured to the skin. Patient tolerated procedure well and was returned to their room in satisfactory and stable condition.
--- NOTE | 2023-09-18 19:12 | CDI ---
Documentation Clarification Form Date: 09/18/2023 06:52:22 PM From: Holly Olsen RN, CCDS Email: [email or web address] Admit Date: 08/30/2023 04:17:00 PM Patient Name: Florentino Chowdhury Visit Number: [id number] Discharge Date: 09/06/2023 01:20:00 PM ATTENTION: The Clinical Documentation Specialists (CDI) and [facility] Coding Staff appreciate your assistance in clarifying documentation. Please respond to the clarification below the line at the bottom and electronically sign. The CDI & [facility] Coding staff will review the response and follow-up if needed. Please note: Queries are made part of the Legal Health Record. If you have any questions, please contact the author of this message via ITS. Dr. Sonia Hung Right index finger cellulitis is documented in the H&P and progress notes. Additional clarification regarding the type of cellulitis is requested. History/risk factors: COPD, Diabetes Mellitus, GERD/Reflux, Deafness, Hyperlipidemia and Hypertension. On presentation, right second digit was erythematous and swollen, most predominantly at the distal end of the metacarpal. Clinical Indicators: ED: "Cellulitis of finger of right hand." H&P: "Severe cellulitis right index finger. Diabetes mellitus type 2. Neuropathy." 08/30 Ortho consult: "Patient does state he has a history of frostbite to his right index and third digit approximately 10 years ago. Cellulitis of index finger of right hand. At this time, we recommend I D of the right index finger." POC glucose range 79-173 Discharge summary: "Severe cellulitis right index finger, status post incision and debridement of the nail abscess and finger abscess, culture showing presumptive MRSA. Diabetes mellitus type 2, [id number] uncontrolled with hyperglycemia. Neuropathy." Treatment: s/p excisional debridement of RIF dorsal abscess and nailbed on 08/31; IV Unasyn 1.5gm x1 on 08/29; IV Unasyn 3gm Q6H 08/30-09/02; IV Cefepime 2gm Q8H 09/02-09/05; Metformin 1000mg po BID w meals 08/30-09/05; IV Vancomycin 1500mg x1 on 08/29; IV Vancomycin 1500mg Q8H 08/30-09/02; IV Vancomycin 1250mg Q8H 09/02-09/05 Please clarify the etiology of the cellulitis: [ ] Cellulitis is a diabetic skin complication [ ] Cellulitis is not a diabetic skin complication [ ] Other, please specify: [ ] Unable to determine MTDD
== END 2023-09-06 13:20 | disposition home health service (06) | DRG 364 ==
LOC: EC 13:20 → 5NMEDONC 16:17
PROVIDERS: ADMIT Internal Medicine; ATTEND Internal Medicine
PROC: 0JBJ0ZZ Excision of Right Hand Subcutaneous Tissue and Fascia, Open Approach (ICD-10-PCS; principal; 2023-09-01 06:39)
PROC: 0HBQXZZ Excision of Finger Nail, External Approach (ICD-10-PCS; principal; 2023-09-01 06:39)
PROC: 02HV33Z Insertion of Infusion Device into Superior Vena Cava, Percutaneous Approach (ICD-10-PCS; 2023-09-03)
DX: L03.011 Cellulitis of right finger (principal); J44.9 Chronic obstructive pulmonary disease, unspecified; I50.32 Chronic diastolic (congestive) heart failure; F32.A Depression, unspecified; L02.511 Cutaneous abscess of right hand; B95.62 Methicillin resistant Staphylococcus aureus infection as the cause of diseases classified elsewhere; F41.9 Anxiety disorder, unspecified; E11.40 Type 2 diabetes mellitus with diabetic neuropathy, unspecified; I11.0 Hypertensive heart disease with heart failure; E11.65 Type 2 diabetes mellitus with hyperglycemia; Z79.84 Long term (current) use of oral hypoglycemic drugs; G20.A1 Parkinson's disease without dyskinesia, without mention of fluctuations; F17.210 Nicotine dependence, cigarettes, uncomplicated; I48.20 Chronic atrial fibrillation, unspecified; R27.0 Ataxia, unspecified; R29.6 Repeated falls; X31.XXXS Exposure to excessive natural cold, sequela; Z11.52 Encounter for screening for COVID-19; M50.30 Other cervical disc degeneration, unspecified cervical region; M48.02 Spinal stenosis, cervical region; Z60.2 Problems related to living alone; K21.9 Gastro-esophageal reflux disease without esophagitis; H91.90 Unspecified hearing loss, unspecified ear; E78.5 Hyperlipidemia, unspecified; Z28.311 Partially vaccinated for COVID-19; Z91.81 History of falling; Z79.899 Other long term (current) drug therapy
CPT/HCPCS: 36415; 36573; 80048; 80053; 80202; 82565; 83036; 85025; 85610; 87040; 87070; 87075; 87077; 87186; 87205; 96365; 96368; 96372; 96375; 99285